=== PATIENT | male | born 1935 | race African-American/Black ===

== ENCOUNTER 2018-05-05 06:24 | Emergency (ER) | payer OTHER ==
[2018-05-05] MEDS ORDERED: FLEET ENEMA ADULT PR ONE (10:08)
--- NOTE | 2018-05-05 10:32 | ER ---
Nurse's Notes [facility] Name: Benigno Lucas Age: 82 yrs Sex: Male : 1935 Arrival Date: 05/05/2018 Time: 06:26 Bed 17 Private MD: Diagnosis: Constipation Presentation: 05/05 06:33 Presenting complaint: Patient states: "I've been having trouble with my bowel tl2 movements, they gave me a medication but I still haven't had a BM since night". Pt reports pain only when trying to have a BM. Transition of care: patient was not received from another setting of care. Onset of symptoms was May 03, 2018. Risk Assessment: Do you want to hurt yourself or someone else? Patient reports no desire to harm self or others. Initial Sepsis Screen: Does the patient meet any 2 criteria? No. Patient's initial sepsis screen is negative. Does the patient have a suspected source of infection? No. Patient's initial sepsis screen is negative. Care prior to arrival: None. 06:33 Method Of Arrival: Ambulatory tl2 06:33 Acuity: DALILA 3 tl2 Triage Assessment: 06:36 General: Appears in no apparent distress. uncomfortable, Behavior is calm, cooperative, tl2 appropriate for age. Pain: Denies pain. Neuro: Level of Consciousness is awake, alert, obeys commands, Oriented to person, place, time, situation. Cardiovascular: Denies chest pain. Respiratory: Airway is patent Respiratory effort is even, unlabored, Respiratory pattern is regular, symmetrical. GI: Reports constipation. : No signs and/or symptoms were reported regarding the genitourinary system. Derm: Skin is pink, warm \\T\\ dry. Historical: - Allergies: 06:36 No Known Allergies; tl2 - Home Meds: 06:36 HCTZ [Active]; Allopurinol Oral [Active]; Bystolic oral oral [Active]; FeroSul oral tl2 oral [Active]; Linzess oral oral [Active]; lisinopril 30 mg Oral tab 1 tab once daily [Active]; - PMHx: 06:36 Hypertension; Gout; tl2 - Immunization history:: Adult Immunizations up to date. - Social history:: Smoking status: Patient/guardian denies using tobacco. - Ebola Screening: : No symptoms or risks identified at this time. Screenin:37 Abuse screen: Denies threats or abuse. Nutritional screening: No deficits noted. tl2 Tuberculosis screening: No symptoms or risk factors identified. Fall Risk None identified. Assessment: 06:40 General: Appears in no apparent distress. comfortable, Behavior is calm, cooperative, jb4 appropriate for age. Pain: Denies pain. Neuro: Level of Consciousness is awake, alert, obeys commands, Oriented to person, place, time, situation. Cardiovascular: Patient's skin is warm and dry. Respiratory: Airway is patent Respiratory effort is even, unlabored, Respiratory pattern is regular, symmetrical. GI: Abdomen is round non-distended, Bowel sounds present X 4 quads. Abd is soft and non tender X 4 quads. : No signs and/or symptoms were reported regarding the genitourinary system. EENT: No signs and/or symptoms were reported regarding the EENT system. Derm: Skin is intact, Skin is pink, warm \\T\\ dry. Musculoskeletal: Circulation, motion, and sensation intact. 09:20 Reassessment: Patient appears in no apparent distress at this time. No changes from la1 previously documented assessment. Patient and/or family updated on plan of care and expected duration. Pain level reassessed. awaiting rad results from recent er visit at [place]. Vital Signs: 06:36 BP 160 / 88; Pulse 95; Resp 18; Temp 98.5(O); Pulse Ox 98% on R/A; Weight 83.01 kg; tl2 Height 5 ft. 9 in. (175.26 cm); Pain 0/10; 09:20 BP 132 / 73; Pulse 64; Resp 16; Pulse Ox 97% on R/A; la1 10:22 BP 148 / 72; Pulse 62; Resp 16; Pulse Ox 98% on R/A; Pain 0/10; ls4 06:36 Body Mass Index 27.02 (83.01 kg, 175.26 cm) tl2 ED Course: 06:26 Patient arrived in ED. ag3 06:31 Lillie Brady FNP-C [facility]. kb 06:31 Chico Gill MD is Attending Physician. kb 06:34 Triage completed. tl2 06:36 Arm band placed on right wrist. tl2 06:37 Patient has correct armband on for positive identification. Bed in low position. Call tl2 light in reach. Side rails up X 1. Adult w/ patient. 07:03 Nik Lopez, RN is Primary Nurse. la1 10:22 Verbal reassurance given. bedside commode and urinal . ls4 10:50 No provider procedures requiring assistance completed. ls4 10:50 Patient did not have IV access during this emergency room visit. ls4 Administered Medications: 10:10 Drug: Fleet Enema 133 ml Route: CT; ls4 Outcome: 10:31 Discharge ordered by . cb 10:49 Discharged to home ls4 10:49 Condition: stable 10:49 Discharge instructions given to patient, family, Instructed on discharge instructions, follow up and referral plans. medication usage, safety practices, Demonstrated understanding of instructions, follow-up care, medications. 11:02 Patient left the ED. ls4 Signatures: Lillie Brady, CLOTH BEAMER-C CLOTH BEAMER-Ckb Nik Lopez, RN RN la1 Mariama Morris RN RN tl2 Aamir Foy, RN RN oral4 Iliana Wyatt3 Wendy Yoder, RN RN ls4
--- NOTE | 2018-05-05 10:32 | EDPHYS ---
Physician Documentation [facility] Name: Benigno Lucas Age: 82 yrs Sex: Male : 1935 Arrival Date: 05/05/2018 Time: 06:26 Bed 17 Private MD: ED Physician Chico Gill HPI: 05/05 07:00 This 82 yrs old Male presents to ER via Ambulatory with complaints of Constipation. kb 07:00 The patient presents with constipation. Onset: The symptoms/episode began/occurred 3 kb month(s) ago, and became worse 1 week(s) ago. The symptoms do not radiate. Associated signs and symptoms: Pertinent positives: constipation, Pertinent negatives: nausea, vomiting, and diarrhea, fever. The symptoms are described as The symptoms are described as intermittent. Modifying factors: The symptoms are alleviated by nothing, the symptoms are aggravated by nothing. The patient has experienced similar episodes in the past. The patient has been recently seen by a physician: the ER physician, out of Town. Pt reports constipation for 3 months that has been intermittent, but worse over the last week. Went to ER in [place] on 05/03/18. Had labs and CT done, given mag citrate and some medication for constipation for home. Reports he still has hard stool at his rectum. . Historical: - Allergies: 06:36 No Known Allergies; tl2 - Home Meds: 06:36 HCTZ [Active]; Allopurinol Oral [Active]; Bystolic oral oral [Active]; FeroSul oral tl2 oral [Active]; Linzess oral oral [Active]; lisinopril 30 mg Oral tab 1 tab once daily [Active]; - PMHx: 06:36 Hypertension; Gout; tl2 - Immunization history:: Adult Immunizations up to date. - Social history:: Smoking status: Patient/guardian denies using tobacco. - Ebola Screening: : No symptoms or risks identified at this time. ROS: 06:58 Constitutional: Negative for fever, chills, and weight loss, Cardiovascular: Negative kb for chest pain, palpitations, and edema, Respiratory: Negative for shortness of breath, cough, wheezing, and pleuritic chest pain, Back: Negative for injury and pain, : Negative for injury, bleeding, discharge, and swelling, MS/Extremity: Negative for injury and deformity, Skin: Negative for injury, rash, and discoloration, Neuro: Negative for headache, weakness, numbness, tingling, and seizure. 06:58 Abdomen/GI: Positive for constipation, Negative for abdominal pain, nausea, vomiting, diarrhea. Exam: 06:58 Constitutional: This is a well developed, well nourished patient who is awake, alert, kb and in no acute distress. Head/Face: Normocephalic, atraumatic. Chest/axilla: Normal chest wall appearance and motion. Nontender with no deformity. No lesions are appreciated. Cardiovascular: Regular rate and rhythm with a normal S1 and S2. No gallops, murmurs, or rubs. Normal PMI, no JVD. No pulse deficits. Respiratory: Lungs have equal breath sounds bilaterally, clear to auscultation and percussion. No rales, rhonchi or wheezes noted. No increased work of breathing, no retractions or nasal flaring. Abdomen/GI: Soft, non-tender, with normal bowel sounds. No distension or tympany. No guarding or rebound. No evidence of tenderness throughout. Back: No spinal tenderness. No costovertebral tenderness. Full range of motion. Skin: Warm, dry with normal turgor. Normal color with no rashes, no lesions, and no evidence of cellulitis. MS/ Extremity: Pulses equal, no cyanosis. Neurovascular intact. Full, normal range of motion. Neuro: Awake and alert, GCS 15, oriented to person, place, time, and situation. Cranial nerves II-XII grossly intact. Motor strength 5/5 in all extremities. Sensory grossly intact. Cerebellar exam normal. Normal gait. Vital Signs: 06:36 BP 160 / 88; Pulse 95; Resp 18; Temp 98.5(O); Pulse Ox 98% on R/A; Weight 83.01 kg; tl2 Height 5 ft. 9 in. (175.26 cm); Pain 0/10; 09:20 BP 132 / 73; Pulse 64; Resp 16; Pulse Ox 97% on R/A; la1 10:22 BP 148 / 72; Pulse 62; Resp 16; Pulse Ox 98% on R/A; Pain 0/10; ls4 06:36 Body Mass Index 27.02 (83.01 kg, 175.26 cm) tl2 MDM: 06:31 Patient medically screened. kb 06:58 Data reviewed: vital signs, nurses notes. Data interpreted: Pulse oximetry: on room air kb is 98 %. Interpretation: normal. 09:59 ED course: Digital disimpaction completed, small amount of stool removed. Fleet enema kb ordered. 10:15 ED course: lab, CT and x-ray results from 05/03/[address] revealed fecal kb impaction at rectum. No bowel obstruction or other surgical or infectious process identified. . 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 05/05 07:00 Order name: Randell. Order: Get ER records from [place] from 05/03/18; Complete Time: kb 07:05 Administered Medications: 10:10 Drug: Fleet Enema 133 ml Route: [place]; ls4 Disposition: 05/05/18 10:31 Discharged to Home. Impression: Constipation. - Condition is Stable. - Discharge Instructions: Constipation, Adult, [id number]. - Medication Reconciliation Form, Thank You Letter, Antibiotic Education, Prescription Opioid Use form. - Follow up: Emergency Department; When: As needed; Reason: Worsening of condition. Follow up: Private Physician; When: 2 - 3 days; Reason: Recheck today's complaints, Continuance of care, Re-evaluation by your physician. - Notes: Continue previously prescribed lactulose. Follow up with PCP and GI Addendum: 05/07/2018 06:59 Co-signature as Attending Physician, Chico Gill MD. r n Signatures: Lillie Brady, PRECINCT I POLICE SERGEANT-C PRECINCT I POLICE SERGEANT-Ckb Chico Gill MD MD rn Knox, Taylor, RN RN tl2 Wendy Yoder, RN RN ls4 Corrections: (The following items were deleted from the chart) 05/05 11:02 10:31 05/05/2018 10:31 Discharged to Home. Impression: Constipation. Condition is ls4 Stable. Forms are Medication Reconciliation Form, Thank You Letter, Antibiotic Education, Prescription Opioid Use. Follow up: Emergency Department; When: As needed; Reason: Worsening of condition. Follow up: Private Physician; When: 2 - 3 days; Reason: Recheck today's complaints, Continuance of care, Re-evaluation by your physician. kb
== END 2018-05-05 11:02 | disposition home or self-care (01) ==
LOC: ER 06:24
DX: K59.00 Constipation, unspecified (principal); I10 Essential (primary) hypertension; M10.9 Gout, unspecified; Z79.899 Other long term (current) drug therapy
CPT/HCPCS: 99283

== ENCOUNTER 2019-01-04 20:00 | Emergency (ER) | payer OTHER ==
--- OUTSIDE RECORDS SUMMARY | 2019-01-04 20:02 | XMS REPORT ---
:1935 [facility] Address [address] [place] [address] Care Team Providers Name Role Phone MARCELLA MAE Primary Care Provider Unavailable MARCELLA MAE Unavailable Unavailable Problems This patient has no known problems. Allergies, Adverse Reactions, Alerts This patient has no known allergies or adverse reactions. Medications This patient has no known medications. Results Test Description Test Time Test Comments Text Results Atomic Results Result Comments B-Type Natriuretic Peptide 2016-12-07 10:27:00 Test Item Value Reference Range Comments B-Type Natriuretic Peptide (test [id number]=[id number]) 9.6 pg/mL 0.0-100.0 Sed Rate ESR ([place])2016-12-02 01:01:00 Test Item Value Reference Range Comments ESR (test code=HESR) 54 mm/Hr 0-9 Thyroid Stimulating Hormone (TSH)2016-12-01 23:51:00 Test Item Value Reference Range Comments TSH (test code=TSH) 0.52 mIU/mL 0.270-4.200 Comprehensive Metabolic [id number] 23:12:00 Test Item Value Reference Range Comments Sodium (test code=NA) 135 mmol/L 135-145 Potassium (test code=K) 3.6 mmol/L 3.5-5.1 Chloride (test code=CL) 93 mmol/L 98-105 Carbon Dioxide (test 25 mmol/L 22-29 code=CO2) Glucose (test code=GLU) 91 mg/dL 70-115 Blood Urea Nitrogen (test 36 mg/dL 8-23 code=BUN) Creatinine (test 2.1 mg/dL 0.7-1.2 code=CREAT) Calcium (test code=CA) 9.5 mg/dL 8.3-10.5 Prot Total (test code=TP) 8.3 g/dL 6.4-8.3 Albumin (test code=ALB) 3.8 g/dL 3.5-5.2 A/G Ratio (test 0.8 Ratio code=AGRATIO) Globulin (test code=GLOB) 4.5 2.9-3.1 Bili Total (test 0.4 mg/dL 0.1-0.9 code=TBIL) Alk Phos (test 69 U/L 40-129 code=APHOS) AST (test code=AST) 16 U/L 1-40 ALT (test code=ALT) 11 U/L 1-41 BUN/Creatinine Ratio 17.1 (test code=BCRATIO) Anion Gap (test 17 mmol/L 7-16 code=AGAP) Estimated GFR (test 32 mL/min/1.73m2 eGFR (estimated Glomerular code=GFR) Filtration Rate) is an estimated value,calculated from the patient's serum creatinine using the MDRD equation.It is NOT the patient's actual GFR. The eGFR provides a more clinicallyuseful measure of kidney disease than serum creatinine alone.This calculation takes sex and race into account, if the informationis provided. If the race is not provided, and the patient isAfrican-French, multiply by 1.212. If sex is not provided, and thepatient is female, multiply by 0.742. Results for patients <18 years ofage have not been validated by the MDRD study and should be interpretedwith caution.eGFR Result Interpretation:eGFR > or=60 is in the Normal RangeeGFR < 60 may mean kidney diseaseeGFR < 15 may mean kidney failureRanges recommended by the National Kidney Foundation,http://nkdep.nih .gov Lipid [id number] 23:12:00 Test Item Value Reference Range Comments Cholesterol (test 101 mg/dL 0-200 code=CHOL) Triglycerides (test 81 mg/dL 9-200 code=TRIG) HDL (test code=HDL) 45 mg/dL 40-60 Chol/HDL (test 2.2 Ratio 0.0-5.0 code=CHOLPHDL) LDL, Calculated (test 40 mg/dL 0-130 (NOTE)RISK OF HEART code=LDLC) DISEASEPublished by French Heart AssociationAnalyte Optimal Boderline Increased RiskCHOL <200 200-239 >240TRIG <150 150-199 >200HDL Male: >60 <40HDL Female: >60 <50LDL <100 130-159 >160LDL NEAR OPTIMAL IS 100-129 VLDL (test code=VLDL) 16 mg/dL 5-40 LDL/HDL (test code=LDLPHDL) 1 CBC with [id number] 22:17:00 Test Item Value Reference Range Comments WBC (test code=WBC) 8.3 K/cumm 4.4-10.5 RBC (test code=RBC) 3.51 M/cumm 4.10-5.70 Hemoglobin (test code=HGB) 10.6 gm/dL 13.4-17.4 Hematocrit (test code=HCT) 34.0 % 38.7-52.0 MCV (test code=MCV) 96.8 fL 80-100 MCH (test code=MCH) 30.1 pg 27.0-32.5 MCHC (test code=MCHC) 31.0 g/dL 32.0-37.5 RDW (test code=RDW) 13.2 % 11.5-14.5 Platelet Count (test code=PLTCT) 303 K/cumm 140-440 MPV (test code=MPV) 7.9 fL Diff Method (test code=DIFFM) Auto Neutrophil (test code=NEUT) 75.7 % 36-70 Lymphocyte (test code=LYMPH) 14.8 % 12-44 Monocyte (test code=MONO) 7.3 % 0-11 Eosinophil (test code=EOS) 1.8 % 0-7 Basophil (test code=BASO) 0.4 % 0-2 Neutro Abs (test code=ANEUT) 6.3 K/cumm 1.6-7.4 Lymph Abs (test code=ALYMPH) 1.2 K/cumm 0.5-4.6 [place] Abs (test code=AMONO) 0.6 K/cumm 0.0-1.2 Eos Abs (test code=AEOS) 0.15 K/cumm 0.00-0.74 Baso Abs (test code=ABASO) 0.0 K/cumm 0.00-0.21
[2019-01-04] MEDS ORDERED: NA CHLORIDE 0.9% 1,000 ML ONE (20:48)
[2019-01-04 22:43] LABS: Basophils % 0.2 % (0-1.3); Hematocrit 26.7 % (39.6-49.0); Lymphocytes % 11.9 % (15.3-44.8); MPV 8.6 fL (7.6-11.3); RBC Red Blood Cell Count 2.82 M/uL (4.33-5.43)
[2019-01-04 22:55] LABS: Protime INR 1.36
[2019-01-04 23:36] LABS: Blood Morphology Comment NOTED (NOT SEEN); Platelet Estimate ADEQ; Target Cells 3+
[2019-01-04 23:44] LABS: Albumin 2.5 g/dL (3.4-5.0); Bilirubin Direct 22.8 mg/dL (0-0.2); Potassium 3.6 mmol/L (3.5-5.1); Protein, Total 6.3 g/dL (6.4-8.2)
[2019-01-04 23:46] LABS: Bilirubin Total 25.9 mg/dL (0.2-1.0)
[2019-01-05] MEDS ORDERED: PIPER/TAZO/NS 3.375gm 3.375 GM/100 ML BAG ONE (01:02)
--- NOTE | 2019-01-05 02:38 | ER ---
Nurse's Notes [facility] Name: Benigno Lucas Age: 83 yrs Sex: Male : 1935 Arrival Date: 01/04/2019 Time: 20:05 Bed 4 Private MD: Diagnosis: Pancreatic Mass;Obstructive jaundice;Hypotension, unspecified Presentation: 01/04 20:11 Presenting complaint: Patient states: "It started yesterday and I got dizzy and I fell" aj1 Patient's son states that his bile duct is obstructed and they did a bypass of that day before yesterday. Reports abdominal pain. Denies hitting head during fall. Jaundice noted, patient's family states that he was yellow before his procedure. Transition of care: patient was not received from another setting of care. Onset of symptoms was January 02, 2019. Risk Assessment: Do you want to hurt yourself or someone else? Patient reports no desire to harm self or others. Initial Sepsis Screen: Does the patient meet any 2 criteria? HR > 90 bpm. No. Patient's initial sepsis screen is negative. Does the patient have a suspected source of infection? Yes: Acute abdominal pain. Care prior to arrival: None. 20:11 Method Of Arrival: Wheelchair aj1 20:11 Acuity: DALILA 2 aj1 20:30 Mechanism of Injury: Fall from standing position. Trauma event details: Injury occurred cc3 in the [facility]. Trauma Activation: Physician: ED Physician; Name: ; Notified At: ; Arrived At: Physician: General Surgeon; Name: ; Notified At: ; Arrived At: Physician: Radiology; Name: ; Notified At: ; Arrived At: Physician: Respiratory; Name: ; Notified At: ; Arrived At: Physician: Lab; Name: ; Notified At: ; Arrived At: 20:30 was not activated cc3 Historical: - Allergies: 20:16 No Known Allergies; aj1 - Home Meds: 21:00 allopurinol 300 mg oral tab 1 tab once daily [Active]; Bystolic 10 mg oral tab 1 tab cc3 once daily [Active]; hctz 12.5 mg daily [Active]; lisinopril 30 mg Oral tab 1 tab once daily [Active]; hydroxyzine HCl 25 mg Oral tab 1 tab 4 times per day [Active]; Vitamin D Oral 50,000 unit 1x a week [Active]; - PMHx: 20:16 Gout; Hypertension; bile duct obstruction; aj1 - Immunization history:: Flu vaccine is up to date. - Social history:: Smoking status: Patient/guardian denies using tobacco. - Immunization history: Last tetanus immunization: unknown. - Ebola Screening: : Patient denies travel to an Ebola-affected area in the 21 days before illness onset. - Family history:: not pertinent. - Hospitalizations: : No recent hospitalization is reported. Screenin:30 Abuse screen: Denies threats or abuse. Denies injuries from another. Nutritional cc3 screening: No deficits noted. Tuberculosis screening: No symptoms or risk factors identified. Fall Risk Ambulatory Aid- None/Bed Rest/Nurse Assist (0 pts). Gait- Normal/Bed Rest/Wheelchair (0 pts) Mental Status- Oriented to own ability (0 pts). Primary Survey: 20:30 NO uncontrolled hemorrhage observed. A: The patient is alert. Airway: patent, No cc3 supplemental oxygen in use on arrival. Trachea midline. Breathing/Chest: Respiratory pattern: regular, Respiratory effort: spontaneous, unlabored, Breath sounds: clear, bilaterally. Chest inspection: symmetrical rise and fall of the chest. Circulation: Heart tones present. Skin color: jaundice. Disability Alert. Exposure/Environment: All clothing and personal items were removed. Forensic evidence collection is not deemed to be indicated at this time. Items placed in patient belonging bag. There is no evidence of uncontrolled external bleeding. No obvious injuries are noted at this time. A warming method has been applied: A warm blanket has been provided to the patient. 20:45 Reassessment Airway Airway Patent Oxygen No O2 Trachea Midline Breathing/Chest cc3 Respiratory pattern Regular Respiratory effort Spontaneous Unlabored Breath sounds Clear Chest inspection Symmetrical Circulation Heart tones Present Color Other jaundice Disability Alert. Secondary Survey: 20:35 HEENT: Head No injury/deformity Face No injury/deformity Eyes: No injury or deformity cc3 noted. to bilateral eyes. Other jaundiced sclera Ears: clear bilaterally. Nose: clear to bilateral nares. Throat: No injury or deformity noted. Gastrointestinal: Abdomen is soft, flat, Bowel sounds present in all quadrants. : No signs and/or symptoms were reported regarding the genitourinary system. Musculoskeletal: Circulation, motion, and sensation intact. Range of motion: intact in all extremities. Assessment: 20:30 General: Appears in no apparent distress. comfortable, Behavior is calm, cooperative, cc3 appropriate for age. Pain: Denies pain. Neuro: Level of Consciousness is awake, alert, obeys commands, Oriented to person, place, time, situation, Appropriate for age. Cardiovascular: Denies chest pain, Patient's skin is warm and dry. Rhythm is sinus rhythm with PVC's. Respiratory: Airway is patent Respiratory effort is even, unlabored, Respiratory pattern is regular, symmetrical. GI: Abdomen is round non-distended. : No signs and/or symptoms were reported regarding the genitourinary system. EENT: Sclera/Cornea jaundice. Derm: Skin is intact, is healthy with good turgor, Skin is black, jaundiced. 20:30 Musculoskeletal: Range of motion: intact in all extremities. cc3 21:18 Reassessment: Patient appears in no apparent distress at this time. Patient and/or cc3 family updated on plan of care and expected duration. Pain level reassessed. Patient is alert, oriented x 3, equal unlabored respirations, skin warm/dry/pink. 22:15 Reassessment: Patient appears in no apparent distress at this time. Patient and/or cc3 family updated on plan of care and expected duration. Pain level reassessed. Patient is alert, oriented x 3, equal unlabored respirations, skin warm/dry/pink. charge nurse Sherlyn said she received a call from laboratory that the bloodworks needs to be recollected. JULI Thayer called laboratory to send staff to do phlebotomy for the patient. 22:30 Reassessment: Patient appears in no apparent distress at this time. Patient and/or cc3 family updated on plan of care and expected duration. Pain level reassessed. Patient is alert, oriented x 3, equal unlabored respirations, skin warm/dry/pink. forensic technician came to do blood recollection for the patient. 23:15 Reassessment: Patient appears in no apparent distress at this time. Patient and/or cc3 family updated on plan of care and expected duration. Pain level reassessed. Patient is alert, oriented x 3, equal unlabored respirations, skin warm/dry/pink. Patient taken to CT scan department by architecture technician by bed. Patient denies pain at this time. 23:41 Reassessment: Patient appears in no apparent distress at this time. Patient and/or cc3 family updated on plan of care and expected duration. Pain level reassessed. Patient is alert, oriented x 3, equal unlabored respirations, skin warm/dry/pink. Patient came back from CT scan department, awaiting result. Patient denies pain at this time. 01/05 00:40 Reassessment: Patient appears in no apparent distress at this time. Patient and/or cc3 family updated on plan of care and expected duration. Pain level reassessed. Patient is alert, oriented x 3, equal unlabored respirations, skin warm/dry/pink. Dr. Gill at bedside explaining to the patient and his family the CT scan result and his plan of care. Patient denies pain at this time. 01:18 Reassessment: Patient appears in no apparent distress at this time. Patient and/or cc3 family updated on plan of care and expected duration. Pain level reassessed. Patient is alert, oriented x 3, equal unlabored respirations, skin warm/dry/pink. Patient denies pain at this time. 02:50 Reassessment: Patient appears in no apparent distress at this time. Patient and/or cc3 family updated on plan of care and expected duration. Pain level reassessed. Patient is alert, oriented x 3, equal unlabored respirations, skin warm/dry/pink. Patient for transfer to [facility]. Report called and handed over to JULI Torres. Transfer form completed and signed by the patient's son. ED work order sorting clerk to arrange ground ambulance for transport. Patient denies pain at this time. 03:40 Reassessment: Patient appears in no apparent distress at this time. Patient and/or cc3 family updated on plan of care and expected duration. Pain level reassessed. Patient is alert, oriented x 3, equal unlabored respirations, skin warm/dry/pink. [facility] came for patient transport. Patient left ER vitally stable by EMS stretcher with his son. No valuables left in the patient's room. Patient denies pain at this time. Vital Signs: 01/04 20:16 BP 70 / 39; Pulse 77; Resp 20; Temp 98.0(O); Pulse Ox 100% on R/A; Weight 74.39 kg (R); aj1 Height 5 ft. 9 in. (175.26 cm) (R); Pain 5/10; 20:30 BP 110 / 55; Pulse 82; Resp 18 S; Pulse Ox 100% on R/A; cc3 21:00 BP 116 / 63; Pulse 79; Resp 17 S; Pulse Ox 100% on R/A; cc3 21:30 BP 110 / 67; Pulse 79; Resp 17 S; Pulse Ox 100% on R/A; cc3 22:15 BP 108 / 64; Pulse 78; Resp 17 S; Pulse Ox 100% on R/A; cc3 23:08 BP 102 / 64; Pulse 74; Resp 17 S; Pulse Ox 99% on R/A; cc3 23:42 BP 120 / 51; Pulse 81; Resp 14 S; Pulse Ox 100% on R/A; cc3 01/05 00:30 BP 118 / 59; Pulse 81; Resp 17 S; Pulse Ox 100% on R/A; cc3 01:28 BP 113 / 66; Pulse 80; Resp 17 S; Pulse Ox 100% on R/A; cc3 02:15 BP 101 / 56; Pulse 76; Resp 18 S; Pulse Ox 99% on R/A; cc3 03:30 BP 110 / 68; Pulse 82; Resp 18 S; Pulse Ox 100% on R/A; cc3 01/04 20:16 Body Mass Index 24.22 (74.39 kg, 175.26 cm) aj1 Weimar Coma Score: 01/04 20:30 Eye Response: spontaneous(4). Verbal Response: oriented(5). Motor Response: obeys cc3 commands(6). Total: 15. Trauma Score (Adult): 20:30 Eye Response: spontaneous(1); Verbal Response: oriented(1); Motor Response: obeys cc3 commands(2); Systolic BP: > 89 mm Hg(4); Respiratory Rate: 10 to 29 per min(4); [place] Score: 15; Trauma Score: 12 ED Course: 20:05 Patient arrived in ED. mr 20:15 Triage completed. aj1 20:16 Arm band placed on Patient placed in an exam room. aj1 20:17 Chico Gill MD is Attending Physician. rn 20:30 Patient has correct armband on for positive identification. Placed in gown. Bed in low cc3 position. Call light in reach. Side rails up X2. potline monitor on. Pulse ox on. NIBP on. 20:30 Patient maintains SpO2 saturation greater than 95% on room air. Thermoregulation: warm cc3 blanket given to patient. 20:31 Radiology exam delayed due to lab results not completed at this time. (BUN/Creatinine). vm2 20:35 Rukhsana Madera is Primary Nurse. cc3 20:36 Initial lab(s) drawn, by me, sent to lab. First set of blood cultures drawn Second set ak1 of blood cultures drawn by me. 20:45 Inserted saline lock: 20 gauge in right antecubital area, using aseptic technique. ak1 Blood collected. 21:13 Radiology exam delayed due to lab results not completed at this time. (BUN/Creatinine). vm2 21:56 Radiology exam delayed due to lab results not completed at this time. (BUN/Creatinine). vm2 22:22 Radiology exam delayed due to lab results not completed at this time. (BUN/Creatinine). vm2 23:45 Notified ED physician of a critical lab result(s). total bili of 25.9. 01/05 00:22 CT Abd/Pelvis - Without Contrast In Process Unspecified. EDMS 01:02 CT completed. Patient tolerated procedure well. Patient moved to CT via stretcher. Patient moved back from CT. 03:40 No provider procedures requiring assistance completed. Patient transferred, IV remains cc3 in place. Administered Medications: 01/04 20:35 Drug: NS 0.9% 1000 ml Route: IV; Rate: 1000 ml; Site: right antecubital; cc3 21:40 Follow up: Response: No adverse reaction; IV Status: Completed infusion; IV Intake: cc3 1000ml 01/05 00:50 Drug: Zosyn 3.375 grams Route: IVPB; Infused Over: 60 mins; Site: right antecubital; cc3 02:00 Follow up: Response: No adverse reaction; IV Status: Completed infusion; IV Intake: cc3 100ml 03:05 Drug: NS 0.9% 500 ml Route: IV; Rate: bolus; Site: right antecubital; cc3 03:10 Follow up: Response: No adverse reaction; IV Status: Infusion continued upon transfer cc3 Intake: 01/04 21:40 IV: 1000ml; Total: 1000ml. cc3 01/05 02:00 IV: 100ml; Total: 1100ml. cc3 03:40 IV: 1600ml; Total: 2700ml. cc3 03:40 urinated 2x cc3 Outcome: 02:35 ER care complete, transfer ordered by . rn 03:40 Transferred by ground EMS to [facility], Transfer form completed. cc3 03:40 Condition: stable 03:40 Instructed on the need for transfer, Demonstrated understanding of instructions. 03:40 Patient's length of stay in the Emergency Department was greater than 2 hours. patient cc3 transferred to [facility].Patient's length of stay extended due to 03:56 Patient left the ED. cc3 Signatures: Dispatcher [employer] EDMS Trish Pro RN RN [email or web address] Karen Mcbride, Sherlyn Lind RN Chico Harris MD MD rn Krenek, Amber, RN RN ak1 McGuire, Victoria vm2 Cordel, Charlene cc3 Corrections: (The following items were deleted from the chart) 01/04 20:16 20:11 Presenting complaint: Patient states: "It started yesterday and I got dizzy and I aj1 fell" Patient's son states that his bile duct is obstructed and they did a bypass of that day before yesterday. Reports abdominal pain. Denies hitting head during fall. aj1 21:48 20:30 General: Appears in no apparent distress. comfortable, Behavior is calm, cc3 cooperative, appropriate for age, cc3 21:48 20:30 Pain: Denies pain. cc3 cc3 :53 20:30 Derm: Skin is intact, is healthy with good turgor, Skin is black, jaundiced, cc3 cc3 :53 20:30 Musculoskeletal: Circulation, motion, and sensation intact. Range of motion: cc3 limited in bilateral lower limbs cc3
--- NOTE | 2019-01-05 02:38 | EDPHYS ---
Physician Documentation [facility] Name: Benigno Lucas Age: 83 yrs Sex: Male : 1935 Arrival Date: 01/04/2019 Time: 20:05 Bed 4 Private MD: ED Physician Chico Gill HPI: 01/04 20:28 This 83 yrs old Black Male presents to ER via Wheelchair with complaints of Fall rn Injury, Dizziness, jaundice. 20:32 The patient presents with abdominal pain. Onset: The symptoms/episode began/occurred 3 rn day(s) ago. The symptoms do not radiate. Associated signs and symptoms: Pertinent positives: anorexia, Pertinent negatives: blood in stools, diarrhea, fever, shortness of breath. Modifying factors: The symptoms are alleviated by nothing, the symptoms are aggravated by touching the area. Severity of pain: At its worst the pain was mild in the emergency department the pain has improved. The patient has not experienced similar symptoms in the past. The patient has been recently seen by a physician:. Reports seen by pcp Monday, sent to GI center for bile duct blockage, had stent or "bypass", family not really sure, reports since then seems weaker, decreased appetite, increased jaundice, fell today without injury due to weakness, no head injury. No known liver problems prior to this. . Historical: - Allergies: 20:16 No Known Allergies; aj1 - Home Meds: 21:00 allopurinol 300 mg oral tab 1 tab once daily [Active]; Bystolic 10 mg oral tab 1 tab cc3 once daily [Active]; hctz 12.5 mg daily [Active]; lisinopril 30 mg Oral tab 1 tab once daily [Active]; hydroxyzine HCl 25 mg Oral tab 1 tab 4 times per day [Active]; Vitamin D Oral 50,000 unit 1x a week [Active]; - PMHx: 20:16 Gout; Hypertension; bile duct obstruction; aj1 - Immunization history:: Flu vaccine is up to date. - Social history:: Smoking status: Patient/guardian denies using tobacco. - Immunization history: Last tetanus immunization: unknown. - Ebola Screening: : Patient denies travel to an Ebola-affected area in the 21 days before illness onset. - Family history:: not pertinent. - Hospitalizations: : No recent hospitalization is reported. ROS: 20:32 Constitutional: Negative for fever, chills, and weight loss, Eyes: Negative for injury, rn pain, redness, and discharge, Neck: Negative for injury, pain, and swelling, Cardiovascular: Negative for chest pain, palpitations, and edema, Respiratory: Negative for shortness of breath, cough, wheezing, and pleuritic chest pain, Abdomen/GI: Negative for nausea, vomiting, diarrhea, and constipation, MS/Extremity: Negative for injury and deformity, Skin: Negative for injury, rash, and discoloration, Neuro: Negative for headache, numbness, tingling, and seizure. Exam: 20:32 Constitutional: Thin male with jaundice Head/Face: Normocephalic, atraumatic. Eyes: rn + scleral icterus ENT: dry MM, + jaundice under tongue Cardiovascular: Regular rate and rhythm. No pulse deficits. Respiratory: No increased work of breathing, no retractions or nasal flaring. Abdomen/GI: soft, + mild tenderness left abdomen, no masses MS/ Extremity: Pulses equal, no cyanosis. Neurovascular intact. Full, normal range of motion. Equal circumference. Neuro: Awake and alert, GCS 15, oriented to person, place, time, and situation. Cranial nerves II-XII grossly intact. Motor strength 5/5 in all extremities. Sensory grossly intact. Cerebellar exam normal. Vital Signs: 20:16 BP 70 / 39; Pulse 77; Resp 20; Temp 98.0(O); Pulse Ox 100% on R/A; Weight 74.39 kg (R); aj1 Height 5 ft. 9 in. (175.26 cm) (R); Pain 5/10; 20:30 BP 110 / 55; Pulse 82; Resp 18 S; Pulse Ox 100% on R/A; cc3 21:00 BP 116 / 63; Pulse 79; Resp 17 S; Pulse Ox 100% on R/A; cc3 21:30 BP 110 / 67; Pulse 79; Resp 17 S; Pulse Ox 100% on R/A; cc3 22:15 BP 108 / 64; Pulse 78; Resp 17 S; Pulse Ox 100% on R/A; cc3 23:08 BP 102 / 64; Pulse 74; Resp 17 S; Pulse Ox 99% on R/A; cc3 23:42 BP 120 / 51; Pulse 81; Resp 14 S; Pulse Ox 100% on R/A; cc3 01/05 00:30 BP 118 / 59; Pulse 81; Resp 17 S; Pulse Ox 100% on R/A; cc3 01:28 BP 113 / 66; Pulse 80; Resp 17 S; Pulse Ox 100% on R/A; cc3 02:15 BP 101 / 56; Pulse 76; Resp 18 S; Pulse Ox 99% on R/A; cc3 03:30 BP 110 / 68; Pulse 82; Resp 18 S; Pulse Ox 100% on R/A; cc3 01/04 20:16 Body Mass Index 24.22 (74.39 kg, 175.26 cm) aj1 Anaid Coma Score: 01/04 20:30 Eye Response: spontaneous(4). Verbal Response: oriented(5). Motor Response: obeys cc3 commands(6). Total: 15. Trauma Score (Adult): 20:30 Eye Response: spontaneous(1); Verbal Response: oriented(1); Motor Response: obeys cc3 commands(2); Systolic BP: > 89 mm Hg(4); Respiratory Rate: 10 to 29 per min(4); Anaid Score: 15; Trauma Score: 12 MDM: 20:17 Patient medically screened. rn 01/05 01:10 Differential diagnosis: bowel obstruction, cholecystitis, Cholelithiasis, non-specific rn abd pain, biliary obstruction, pancreatic mass. Data reviewed: vital signs, nurses notes, lab test result(s), radiologic studies, CT scan, MRI. Counseling: I had a detailed discussion with the patient and/or guardian regarding: the historical points, exam findings, and any diagnostic results supporting the discharge/admit diagnosis, lab results, radiology results, the need to transfer to another facility, for higher level of care, [facility] does not immediately have the required specialist. ED course: Patient without acute findings on CT, but no change in bilirubin, direct bili actually increasing, improved BP but presented hypotensive. COntacted Lotus Reddy who recommends transfer to [facility] given outpt MRI showed possible pancreatic mass as source of obstruction and recommends endoscopic u/s. Family and patient report unaware of mass and need to f/u, were under impression just needed to f/u with Dr. Reddy on . . 01/04 20:27 Order name: CBC with Diff; Complete Time: 23:56 rn 01/04 20:27 Order name: Basic Metabolic Panel; Complete Time: 23:56 rn 01/04 20:27 Order name: Blood Culture Adult (2) rn 01/04 20:27 Order name: Procalcitonin; Complete Time: 23:56 rn 01/04 20:27 Order name: Lactate; Complete Time: 23:15 rn 01/04 20:27 Order name: Creatinine for Radiology; Complete Time: 23:15 rn 01/04 20:27 Order name: Hepatic Function; Complete Time: 23:56 rn 01/04 20:27 Order name: Lipase; Complete Time: 23:56 rn 01/04 20:27 Order name: PT-INR; Complete Time: 23:15 rn 01/04 22:47 Order name: Manual Differential; Complete Time: 23:56 EDMS 01/04 23:14 Order name: CT Abd/Pelvis - Without Contrast rn 01/05 01:59 Order name: Urine Dipstick--Ancillary (enter results) oe 01/04 20:27 Order name: IV Start; Complete Time: 20:48 rn 01/04 20:27 Order name: Labs collected and sent; Complete Time: 22:36 rn 01/04 20:28 Order name: EKG; Complete Time: 20:29 rn 01/04 20:28 Order name: EKG - Nurse/Tech; Complete Time: 22:14 rn Administered Medications: 01/04 20:35 Drug: NS 0.9% 1000 ml Route: IV; Rate: 1000 ml; Site: right antecubital; cc3 21:40 Follow up: Response: No adverse reaction; IV Status: Completed infusion; IV Intake: cc3 1000ml 01/05 00:50 Drug: Zosyn 3.375 grams Route: IVPB; Infused Over: 60 mins; Site: right antecubital; cc3 02:00 Follow up: Response: No adverse reaction; IV Status: Completed infusion; IV Intake: cc3 100ml 03:05 Drug: NS 0.9% 500 ml Route: IV; Rate: bolus; Site: right antecubital; cc3 03:10 Follow up: Response: No adverse reaction; IV Status: Infusion continued upon transfer cc3 Disposition: 01/05/19 02:35 Transfer ordered to [facility]. Diagnosis are Pancreatic Mass, Obstructive jaundice, Hypotension, unspecified. - Reason for transfer: Higher level of care. - Accepting physician is Dr. Rose. - Condition is Stable. - Problem is new. - Symptoms are unchanged. Signatures: Dispatcher [employer] EDTrish Li, JULI RN aj1 Chico Gill MD MD rn Cordel, Charlene cc3 Corrections: (The following items were deleted from the chart) 01/04 23:28 20:29 Abdomen Pelvis W Con+CT.RAD.BRZ ordered. [facility] 01/05 03:56 02:35 01/05/2019 02:35 Transfer ordered to [facility]. Diagnosis is cc3 Pancreatic Mass; Obstructive jaundice; Hypotension, unspecified. Reason for transfer: Higher level of care. Accepting physician is Dr. Rose. Condition is Stable. Problem is new. Symptoms are unchanged. rn
[2019-01-05 03:07] LABS: Urine Blood 1+ (NEG); Urine Glucose NEGATIVE (NEG); Urine Protein TRACE (NEG); Urine Specific Gravity 1.015 (1.005-1.030)
[2019-01-05] MEDS ORDERED: NA CHLORIDE 0.9% 500 ML ONE (03:25)
--- NOTE | 2019-01-05 11:35 | RAD REPORT ---
EXAM DESCRIPTION: CT - Abdomen Pelvis Wo Contrast - 01/05/2019 4:56 am CLINICAL HISTORY: Recent biliary stent, worsening jaundice;Abd pain COMPARISON: None. TECHNIQUE: CT ABDOMEN PELVIS WITHOUT IV CONTRAST on 01/04/2019 11:14 PM CDT This exam was performed according to our departmental dose-optimization program, which includes autom ated exposure control, adjustment of the mA and/or kV according to patient size and/or use of iterati ve reconstruction technique. FINDINGS: Lower lungs are clear. Abdomen: The liver is normal in appearance. There is a common bile duct stent. Gallbladder is normall y distended. The pancreas and spleen are normal in appearance. Adrenal glands are normal. Kidneys are mildly atrophic. There are large bilateral lower pole renal cyst measuring up to 7.5 cm. Abdominal aorta is normal in course and caliber without aneurysm. There is no free air. There is no r etroperitoneal adenopathy. Pelvis: There is no bowel obstruction. Urinary bladder is unremarkable. There is no free fluid. Appen tonie is normal. Skeleton: There are no acute osseous findings. No suspicious bony lesions. There are extensive degene rative changes of the lumbar spine. IMPRESSION: No acute inflammatory process. No renal or ureteral calculi. Electronically signed by: Cain Kumar MD 01/05/2019 12:13 AM CDT Due to temporary technical issues with the PACS/Fluency reporting system, reports are being signed by the in house radiologist as a courtesy to ensure prompt reporting. The interpreting radiologist is f ully responsible for the content of the report.
--- NOTE | 2019-01-06 06:31 | EKG ---
Test Date: 2019-01-04 Test Time: 21:10:45 Electrical Mechanical Technician: NINFA MEASUREMENT RESULTS: Intervals: Rate: 80 MS: 142 QRSD: 112 QT: 410 QTc: 472 [place]: P: 42 MS: 142 QRS: -12 T: 42 INTERPRETIVE STATEMENTS: Sinus rhythm with occasional premature ventricular complexes Otherwise normal ECG No previous ECG available for comparison Electronically Signed On 01-06-19 06:30:54 CDT by Boris Sutherland
== END 2019-01-05 03:56 | disposition short-term general hospital (02) ==
LOC: ER 20:00
DX: K86.9 Disease of pancreas, unspecified (principal); K83.1 Obstruction of bile duct; I95.9 Hypotension, unspecified; I10 Essential (primary) hypertension; W19.XXXA Unspecified fall, initial encounter; Y93.9 Activity, unspecified; Y92.9 Unspecified place or not applicable
CPT/HCPCS: 96365; 96361; 93005; 87040 ×2; 85025; 80048; 36415; 85610; 80076; 83605; 81003; 83690; 84145; 74176; 99285; J2543; J7030

== ENCOUNTER 2019-03-06 20:15 | Inpatient (IN) | payer OTHER ==
[2019-03-06 21:12] LABS: Absolute Lymphocytes (CBC) 0.7 K/uL (0.7-4.9); Basophils % 0.5 % (0-1.3); Lymphocytes % 6.2 % (15.3-44.8); MPV 8.3 fL (7.6-11.3); RBC Red Blood Cell Count 2.71 M/uL (4.33-5.43)
[2019-03-06 21:15] LABS: Protime INR 1.27
--- NOTE | 2019-03-06 21:30 | ER ---
Nurse's Notes [facility] Name: Benigno Lucas Age: 83 yrs Sex: Male : 1935 Arrival Date: 03/06/2019 Time: 20:17 Bed 3 Private MD: Diagnosis: Dizziness and giddiness;Atrial fibrillation and flutter;Weakness;Hypokalemia;Hypo-osmolality and hyponatremia;Urinary tract infection, site not specified;Unspecified kidney failure Presentation: 03/06 20:29 Presenting complaint: Patient states: dizziness, lethargic, weakness today. Transition ak1 of care: patient was not received from another setting of care. Onset of symptoms was March 06, 2019. Risk Assessment: Do you want to hurt yourself or someone else? Patient reports no desire to harm self or others. Initial Sepsis Screen: Does the patient meet any 2 criteria? Systolic BP < 90 mmHg. HR > 90 bpm. Does the patient have a suspected source of infection? Yes:. Care prior to arrival: None. 20:29 Method Of Arrival: Wheelchair ak1 20:29 Acuity: DALILA 2 ak1 Triage Assessment: 20:29 General: Appears in no apparent distress. Behavior is calm, cooperative. ak1 Historical: - Allergies: 23:54 No Known Allergies; tl1 - Home Meds: 23:54 hydrochlorothiazide 12.5 mg Oral cap 1 cap once daily [Active]; allopurinol 300 mg Oral tl1 tab 1 tab once daily [Active]; lisinopril 30 mg Oral tab 1 tab once daily [Active]; ergocalciferol (vitamin D2) 400 unit oral tab [Active]; Flomax 0.4 mg Oral cp24 [Active]; hydroxyzine HCl 25 mg Oral tab 1 tab 4 times per day [Active]; - PMHx: 23:54 bile duct obstruction; Gout; Hypertension; tl1 - Immunization history:: Adult Immunizations unknown. - Social history:: Smoking status: unknown. - Ebola Screening: : No symptoms or risks identified at this time. - Family history:: not pertinent. Screenin:30 Abuse screen: Denies threats or abuse. Denies injuries from another. Nutritional tl1 screening: No deficits noted. Tuberculosis screening: No symptoms or risk factors identified. Fall Risk IV access (20 points). Gait- Weak (10 pts.). Assessment: 20:45 General: Appears slender, Behavior is cooperative, appropriate for age. Pain: Denies tl1 pain. Neuro: Level of Consciousness is awake, alert, obeys commands, Oriented to person, place, time, situation, Weakness Gait is unsteady, Speech is normal, Facial symmetry appears normal. Cardiovascular: Denies chest pain. Cardiovascular: Capillary refill < 3 seconds Rhythm is atrial fibrillation. Respiratory: Airway is patent Trachea midline Respiratory effort is even, unlabored, Respiratory pattern is regular, symmetrical, Breath sounds are clear bilaterally. GI: Abdomen is flat, Bowel sounds present X 4 quads. Abd is soft and non tender X 4 quads. : Pressley in place Urine is brianna urine. EENT: Eyes . Sclera/Cornea yellow. Derm: No deficits noted. Musculoskeletal: Reports weakness in generalized. Vital Signs: 20:28 BP 73 / 38 LA; Pulse 101; Resp 16; Temp 98.2(O); Pulse Ox 100% on R/A; Weight 65.77 kg ak1 (R); Height 5 ft. 9 in. (175.26 cm) (R); Pain 0/10; 20:28 BP 73 / 48 RA; Pulse 101; ak1 21:44 BP 107 / 70; Pulse 96; Resp 22; Pulse Ox 100% ; Pain 0/10; bb 23:29 BP 108 / 83; Pulse 112; Resp 19; Pulse Ox 100% on R/A; Pain 0/10; tl1 23:37 BP 99 / 43; Pulse 89; Resp 19; Pulse Ox 100% ; Pain 0/10; tl1 03/07 00:16 BP 113 / 71; Pulse 102; Resp 18; Temp 98.4; Pulse Ox 100% on R/A; Pain 0/10; tl1 00:52 BP 109 / 78; Pulse 82; Resp 17; Temp 98.5(O); Pulse Ox 100% on R/A; Pain 0/10; tl1 03/06 20:28 Body Mass Index 21.41 (65.77 kg, 175.26 cm) ak1 ED Course: 03/06 20:17 Patient arrived in ED. ds1 20:29 Triage completed. ak1 20:29 Arm band placed on Patient placed in an exam room, on a stretcher, Patient notified of ak1 wait time. 20:45 No provider procedures requiring assistance completed. Inserted saline lock: 20 gauge tl1 in left antecubital area, using aseptic technique. Blood collected. 20:48 Sol Correa, JULI is Primary Nurse. tl1 21:03 Justin Serna MD is Attending Physician. zachariah 21:18 Chest Single View XRAY In Process Unspecified. EDMS 21:29 Sanjuanita Donald MD is Hospitalizing Provider. zachariah 21:55 Notified ED physician of a critical lab result(s). total bili of 12.9 and lactate of fc 2.8. 21:55 Patient has correct armband on for positive identification. Placed in gown. Bed in low tl1 position. Side rails up X2. Adult w/ patient. 22:16 CT Head Brain wo Cont In Process Unspecified. EDMS 22:46 CT completed. Patient moved to CT via stretcher. Patient moved back from CT. hi 22:53 CT Abd/Pelvis - Without Contrast In Process Unspecified. EDMS 23:58 PRESSLEY BAG ADDED TO EXISTING PRESSLEY PATIENT CAME IN WITH. Patient admitted, IV remains in tl1 place. Administered Medications: 21:43 Drug: NS 0.9% 1000 ml Route: IV; Rate: 125 ml/hr; Site: left antecubital; bb 03/07 00:54 Follow up: IV Status: Infusion continued upon admission; IV Intake: 400ml tl1 03/06 21:43 Drug: Lopressor 25 mg Route: PO; bb 23:37 Follow up: BP 99 / 43; Pulse 89 bpm; Resp 19 bpm; Pulse Ox 100% ; Pain 0/10 Adult tl1 21:47 Drug: Pepcid 20 mg Route: IVP; Infused Over: 2 mins; Site: left antecubital; bb 03/07 00:53 Follow up: Response: No adverse reaction; No change in condition 1 03/06 21:51 Not Given (dr order): NS 0.9% (30 ml/kg) 30 ml/kg IV at bolus once; Sepsis Protocol bb 22:17 Drug: NS 0.9% 1000 ml Route: IV; Rate: 1 bolus; Site: left antecubital; tl1 03/07 00:12 Follow up: IV Status: Completed infusion 1 03/06 23:12 Drug: Zosyn 3.375 grams Route: IVPB; Infused Over: 60 mins; Site: left antecubital; tl1 03/07 00:13 Follow up: IV Status: Completed infusion; IV Intake: 100ml tl1 Point of Care Testing: Blood Glucose: 03/06 20:56 Blood Glucose: 122 mg/dL; tl1 Ranges: Intake: 03/07 00:13 IV: 100ml; Total: 100ml. tl1 00:54 IV: 400ml; Total: 500ml. tl1 Outcome: 03/06 21:30 Decision to Hospitalize by Provider. zachariah 03/07 00:09 Admitted to Tele accompanied by nurse, via stretcher, with chart, Report called to trevor1 Eliseo BUSTOS Condition: stable Instructed on the need for admit. 01:32 Patient left the ED. bb Signatures: Dispatcher [employer] EDJustin Santizo MD MD cha Chretien, Felicia, RN RN Aimee Perez ds1 Adriana Flaherty RN RN bb Sol Correa RN RN tl1 Brianna Harrison RN RN ak1 Timmy Almazan
--- NOTE | 2019-03-06 21:30 | EDPHYS ---
Physician Documentation [facility] Name: Benigno Lucas Age: 83 yrs Sex: Male : 1935 Arrival Date: 03/06/2019 Time: 20:17 Bed 3 Private MD: DIAPK Physician Justin Serna HPI: 03/06 21:26 This 83 yrs old Black Male presents to ER via Wheelchair with complaints of Dizziness, zachariah Low Blood Pressure. 21:26 The patient presents with dizziness. Onset: The symptoms/episode began/occurred 1 zachariah day(s) ago. Context: occurred at home. Modifying factors: The symptoms are alleviated by nothing, the symptoms are aggravated by nothing. Associated signs and symptoms: The patient has no apparent associated signs or symptoms. Patient's baseline: Neuro: alert and fully oriented. The patient has not experienced similar symptoms in the past. Historical: - Allergies: 23:54 No Known Allergies; tl1 - Home Meds: 23:54 hydrochlorothiazide 12.5 mg Oral cap 1 cap once daily [Active]; allopurinol 300 mg Oral tl1 tab 1 tab once daily [Active]; lisinopril 30 mg Oral tab 1 tab once daily [Active]; ergocalciferol (vitamin D2) 400 unit oral tab [Active]; Flomax 0.4 mg Oral cp24 [Active]; hydroxyzine HCl 25 mg Oral tab 1 tab 4 times per day [Active]; - PMHx: 23:54 bile duct obstruction; Gout; Hypertension; tl1 - Immunization history:: Adult Immunizations unknown. - Social history:: Smoking status: unknown. - Ebola Screening: : No symptoms or risks identified at this time. - Family history:: not pertinent. ROS: 21:26 Constitutional: Negative for fever, chills, and weight loss, Eyes: Negative for injury, zachariah pain, redness, and discharge, ENT: Negative for injury, pain, and discharge, Neck: Negative for injury, pain, and swelling, Respiratory: Negative for shortness of breath, cough, wheezing, and pleuritic chest pain, Abdomen/GI: Negative for abdominal pain, nausea, vomiting, diarrhea, and constipation, Back: Negative for injury and pain, : Negative for injury, bleeding, discharge, and swelling, MS/Extremity: Negative for injury and deformity, Skin: Negative for injury, rash, and discoloration, Psych: Negative for depression, anxiety, suicide ideation, homicidal ideation, and hallucinations, Allergy/Immunology: Negative for hives, rash, and allergies, Endocrine: Negative for neck swelling, polydipsia, polyuria, polyphagia, and marked weight changes, Hematologic/Lymphatic: Negative for swollen nodes, abnormal bleeding, and unusual bruising. 21:26 Cardiovascular: Positive for palpitations. 21:26 Neuro: Positive for dizziness, near syncope, weakness. Exam: 21:26 Constitutional: This is a well developed, well nourished patient who is awake, alert, zachariah and in no acute distress. Head/Face: Normocephalic, atraumatic. Eyes: Pupils equal round and reactive to light, extra-ocular motions intact. Lids and lashes normal. Conjunctiva and sclera are non-icteric and not injected. Cornea within normal limits. Periorbital areas with no swelling, redness, or edema. ENT: Nares patent. No nasal discharge, no septal abnormalities noted. Tympanic membranes are normal and external auditory canals are clear. Oropharynx with no redness, swelling, or masses, exudates, or evidence of obstruction, uvula midline. Mucous membranes moist. Neck: Trachea midline, no thyromegaly or masses palpated, and no cervical lymphadenopathy. Supple, full range of motion without nuchal rigidity, or vertebral point tenderness. No Meningismus. Chest/axilla: Normal chest wall appearance and motion. Nontender with no deformity. No lesions are appreciated. Respiratory: Lungs have equal breath sounds bilaterally, clear to auscultation and percussion. No rales, rhonchi or wheezes noted. No increased work of breathing, no retractions or nasal flaring. Abdomen/GI: Soft, non-tender, with normal bowel sounds. No distension or tympany. No guarding or rebound. No evidence of tenderness throughout. Back: No spinal tenderness. No costovertebral tenderness. Full range of motion. Male : Normal genitalia with no discharge or lesions. Skin: Warm, dry with normal turgor. Normal color with no rashes, no lesions, and no evidence of cellulitis. MS/ Extremity: Pulses equal, no cyanosis. Neurovascular intact. Full, normal range of motion. Psych: Awake, alert, with orientation to person, place and time. Behavior, mood, and affect are within normal limits. 21:26 Cardiovascular: Rate: tachycardic, Rhythm: regular, Pulses: Pulses are 4+ in bilateral radial, brachial, femoral, popliteal, posterior tibial and and dorsalis pedis arteries.. Heart sounds: normal, Edema: is not appreciated, JVD: is not appreciated. Vital Signs: 20:28 BP 73 / 38 LA; Pulse 101; Resp 16; Temp 98.2(O); Pulse Ox 100% on R/A; Weight 65.77 kg ak1 (R); Height 5 ft. 9 in. (175.26 cm) (R); Pain 0/10; 20:28 BP 73 / 48 RA; Pulse 101; ak1 21:44 BP 107 / 70; Pulse 96; Resp 22; Pulse Ox 100% ; Pain 0/10; bb 23:29 BP 108 / 83; Pulse 112; Resp 19; Pulse Ox 100% on R/A; Pain 0/10; tl1 23:37 BP 99 / 43; Pulse 89; Resp 19; Pulse Ox 100% ; Pain 0/10; tl1 03/07 00:16 BP 113 / 71; Pulse 102; Resp 18; Temp 98.4; Pulse Ox 100% on R/A; Pain 0/10; tl1 00:52 BP 109 / 78; Pulse 82; Resp 17; Temp 98.5(O); Pulse Ox 100% on R/A; Pain 0/10; tl1 03/06 20:28 Body Mass Index 21.41 (65.77 kg, 175.26 cm) [facility] MDM: 03/06 21:04 Patient medically screened. [facility] 21:28 Data reviewed: vital signs, nurses notes, EMS record, lab test result(s), EKG, [facility] radiologic studies, CT scan, plain films. 03/06 20:49 Order name: Basic Metabolic Panel; Complete Time: 22:38 [facility] 03/06 20:49 Order name: Blood Culture Adult (2) [facility] 03/06 20:49 Order name: CBC with Diff [facility] 03/06 20:49 Order name: Ckmb; Complete Time: 22:38 [facility] 03/06 20:49 Order name: CPK; Complete Time: 22:38 [facility] 03/06 20:49 Order name: Lactate; Complete Time: 22:06 [facility] 03/06 20:49 Order name: LFT's; Complete Time: 22:38 [facility] 03/06 20:49 Order name: Lipase; Complete Time: 22:38 [facility] 03/06 20:49 Order name: Procalcitonin; Complete Time: 22:38 [facility] 03/06 20:49 Order name: Protime (+inr); Complete Time: 22:06 [facility] 03/06 20:49 Order name: Ptt, Activated; Complete Time: 22:06 [facility] 03/06 20:49 Order name: Troponin (emerg Dept Use Only); Complete Time: 22:38 [facility] 03/06 20:49 Order name: Urine Microscopic Only; Complete Time: 22:38 [facility] 03/06 21:26 Order name: Urine Culture [facility] 03/06 21:44 Order name: Manual Differential [facility] 03/06 21:47 Order name: NT PRO-BNP; Complete Time: 22:38 EDID 03/06 21:47 Order name: Magnesium; Complete Time: 22:38 EDID 03/06 21:47 Order name: Thyroid Stimulating Hormone; Complete Time: 22:38 [facility] 03/06 22:05 Order name: Urine Dipstick--Ancillary (enter results); Complete Time: 22:38 em 03/06 23:34 Order name: CBC with Automated Diff [facility] 03/06 23:34 Order name: CBC with Automated Diff [facility] 03/06 23:34 Order name: Comprehensive Metabolic Panel [facility] 03/06 23:34 Order name: Comprehensive Metabolic Panel [facility] 03/06 23:34 Order name: Protime (+INR) [facility] 03/06 23:34 Order name: Protime (+INR) [facility] 03/06 23:34 Order name: PTT, Activated Partial Thromb EDID 03/06 23:34 Order name: PTT, Activated Partial Thromb [facility] 03/06 20:49 Order name: Chest Single View XRAY [facility] 03/06 20:49 Order name: Accucheck; Complete Time: 21:16 [facility] 03/06 20:49 Order name: Cardiac monitoring; Complete Time: 20:50 [facility] 03/06 20:49 Order name: EKG - Nurse/Tech; Complete Time: 20:50 [facility] 03/06 20:49 Order name: IV Saline Lock - Large Bore; Complete Time: 20:51 [facility] 03/06 20:49 Order name: Labs collected and sent; Complete Time: 20:51 [facility] 03/06 20:49 Order name: O2 Per Protocol; Complete Time: 20:51 [facility] 03/06 20:49 Order name: O2 Sat Monitoring; Complete Time: 20:51 [facility] 03/06 20:49 Order name: Urine Dipstick-Ancillary (obtain specimen); Complete Time: 22:04 [facility] 03/06 21:26 Order name: EKG; Complete Time: 21:27 [facility] 03/06 21:26 Order name: IV Saline Lock; Complete Time: 21:27 [facility] 03/06 21:26 Order name: CT Head Brain wo Cont [facility] 03/06 21:30 Order name: EKG; Complete Time: 21:31 [facility] 03/06 21:30 Order name: EKG - Nurse/Tech; Complete Time: 21:43 [facility] 03/06 22:09 Order name: CT Abd/Pelvis - Without Contrast [facility] 03/06 22:39 Order name: Guerrero Leg Bag; Complete Time: 23:58 [facility] 03/06 23:34 Order name: CONS Pharmacy Consult [facility] 03/06 23:34 Order name: NPO [facility] 03/07 01:31 Order name: Lactate Sepsis 2 HR Follow-up EDID Administered Medications: 21:43 Drug: NS 0.9% 1000 ml Route: IV; Rate: 125 ml/hr; Site: left antecubital; 03/07 00:54 Follow up: IV Status: Infusion continued upon admission; IV Intake: 400ml [facility] 03/06 21:43 Drug: Lopressor 25 mg Route: PO; bb 23:37 Follow up: BP 99 / 43; Pulse 89 bpm; Resp 19 bpm; Pulse Ox 100% ; Pain 0/10 Adult [facility] 21:47 Drug: Pepcid 20 mg Route: IVP; Infused Over: 2 mins; Site: left antecubital; 03/07 00:53 Follow up: Response: No adverse reaction; No change in condition [facility] 03/06 21:51 Not Given (dr order): NS 0.9% (30 ml/kg) 30 ml/kg IV at bolus once; Sepsis Protocol bb 22:17 Drug: NS 0.9% 1000 ml Route: IV; Rate: 1 bolus; Site: left antecubital; [facility] 03/07 00:12 Follow up: IV Status: Completed infusion [facility] 03/06 23:12 Drug: Zosyn 3.375 grams Route: IVPB; Infused Over: 60 mins; Site: left antecubital; tl1 03/07 00:13 Follow up: IV Status: Completed infusion; IV Intake: 100ml tl1 Point of Care Testing: Blood Glucose: 03/06 20:56 Blood Glucose: 122 mg/dL; tl1 Ranges: Critical Glucose Levels:Adult <50 mg/dl or >400 mg/dl <40 mg/dl or >180 mg/dl Disposition: 03/06/19 21:30 Hospitalization ordered by Sanjuanita Donald for Inpatient Admission. Preliminary diagnosis are Dizziness and giddiness, Atrial fibrillation and flutter, Weakness, Hypokalemia, Hypo-osmolality and hyponatremia, Urinary tract infection, site not specified, Unspecified kidney failure. - Bed requested for Telemetry/MedSurg (Inpatient). - Status is Inpatient Admission. bb - Condition is Stable. - Problem is new. - Symptoms have improved. UTI on Admission? No Signatures: Dispatcher [employer] EDID Justin Serna MD MD cha Chretien, Felicia, RN RN Adriana Flaherty RN RN bb Sol Correa, RN RN tl1 Flaca Harrison RN RN ak1 Corrections: (The following items were deleted from the chart) 21:47 21:27 MAGNESIUM+C.LAB.BRZ ordered. [facility] 21:47 21:27 PROBNP+C.LAB.BRZ ordered. [facility] 21:47 21:27 THYROID STIMULAT HORMONE+C.LAB.BRZ ordered. [facility] 22:40 21:30 Hospitalization Ordered by Sanjuanita Donald MD for Inpatient Admission. Preliminary zachariah diagnosis is Dizziness and giddiness; Atrial fibrillation and flutter; Weakness. Bed requested for Telemetry/MedSurg (Inpatient). Status is Inpatient Admission. Condition is Stable. Problem is new. Symptoms have improved. UTI on Admission? No. zachariah 23:41 22:40 03/06/2019 21:30 Hospitalization Ordered by Sanjuanita Donald MD for Inpatient fc Admission. Preliminary diagnosis is Dizziness and giddiness; Atrial fibrillation and flutter; Weakness; Hypokalemia; Hypo-osmolality and hyponatremia; Urinary tract infection, site not specified; Unspecified kidney failure. Bed requested for Telemetry/MedSurg (Inpatient). Status is Inpatient Admission. Condition is Stable. Problem is new. Symptoms have improved. UTI on Admission? No. zachariah 03/07 01:32 03/06 23:41 03/06/2019 21:30 Hospitalization Ordered by Sanjuanita Donald MD for Inpatient bb Admission. Preliminary diagnosis is Dizziness and giddiness; Atrial fibrillation and flutter; Weakness; Hypokalemia; Hypo-osmolality and hyponatremia; Urinary tract infection, site not specified; Unspecified kidney failure. Bed requested for Telemetry/MedSurg (Inpatient). Status is Inpatient Admission. Condition is Stable. Problem is new. Symptoms have improved. UTI on Admission? No.
[2019-03-06] MEDS ORDERED: METOPROLOL TAR 25 MG TAB ONE (21:31)
[2019-03-06] MEDS ORDERED: NA CHLORIDE 0.9% 1,000 ML ONE ×2 (21:31→22:18)
[2019-03-06 21:44] LABS: ALT/SGPT 85 U/L (12-78); AST/SGOT 138 U/L (15-37); Albumin 1.7 g/dL (3.4-5.0); Alkaline Phosphatase 447 U/L (45-117); BUN Blood Urea Nitrogen 28 mg/dL (7-18); Bicarbonate 20 mmol/L (21-32); Bilirubin Direct 10.9 mg/dL (0-0.2); CKMB Creatine Kinase MB < 1.0 ng/mL (0.3-3.6); Creatine Phosphokinase 253 U/L (39-308); Glucose Level 104 mg/dL (74-106); Lipase 371 U/L (73-393); Potassium 3.3 mmol/L (3.5-5.1); Protein, Total 6.9 g/dL (6.4-8.2); Sodium Level 126 mmol/L (136-145); Troponin (Emerg Dept Use Only) < 0.02 ng/mL (0.0-0.045)
[2019-03-06] MEDS ORDERED: FAMOTIDINE 20 MG/2 ML VIAL IV ONE (21:49)
[2019-03-06 21:56] LABS: Bilirubin Total 12.9 mg/dL (0.2-1.0)
[2019-03-06 22:11] LABS: Urine Blood 2+ (NEG); Urine Glucose NEGATIVE (NEG); Urine Protein 2+ (NEG); Urine pH 5.5 (5.0-7.0)
[2019-03-06 22:20] LABS: Magnesium 1.9 mg/dL (1.8-2.4); NT PRO-BNP 1931 pg/mL (<450); Thyroid Stimulating Hormone 0.857 uIU/mL (0.360-3.740)
[2019-03-06 22:29] LABS: Urine Bacteria LOADED /HPF (NONE SEEN)
[2019-03-06 22:30] LABS: Urine Culture Reflex Order NOT NEEDED
[2019-03-06] MEDS ORDERED: PIPER/TAZO/NS 3.375gm 3.375 GM/100 ML BAG ONE (23:03)
[2019-03-06] MEDS ORDERED: ACETAMINOPHEN 500 MG TAB PO PRN (23:28)
[2019-03-06] MEDS ORDERED: MORPHINE 2 MG/ML SYR IV PRN (23:28)
[2019-03-06] MEDS ORDERED: ONDANSETRON 4 MG/2 ML VIAL IV PRN (23:28)
[2019-03-06 23:39] LABS: Blood Morphology Comment NOT SEEN (NOT SEEN); Platelet Estimate ADEQ
[2019-03-07 01:56] VITALS: BMI 20.5
[2019-03-07 02:25] VITALS: O2SAT 100
[2019-03-07] MEDS: NA CHLORIDE 0.9% 1,000 ML IV SCH ×2 (03:33→13:22)
[2019-03-07 04:20] LABS: Basophils % 0.3 % (0-1.3); Hematocrit 29.1 % (39.6-49.0); Lymphocytes % 7.1 % (15.3-44.8); MPV 8.2 fL (7.6-11.3); RBC Red Blood Cell Count 2.82 M/uL (4.33-5.43)
[2019-03-07 04:22] LABS: Protime INR 1.22
[2019-03-07 04:38] LABS: Albumin 1.7 g/dL (3.4-5.0); Potassium 3.7 mmol/L (3.5-5.1); Protein, Total 6.7 g/dL (6.4-8.2)
[2019-03-07 04:54] LABS: Bilirubin Total 12.5 mg/dL (0.2-1.0)
--- NOTE | 2019-03-07 07:22 | RAD REPORT ---
EXAM DESCRIPTION: RAD - Chest Single View - 03/06/2019 9:16 pm CLINICAL HISTORY: Cough, shortness of breath, weakness COMPARISON: None. TECHNIQUE: AP portable chest image was obtained 2112 hours . FINDINGS: Lungs are clear. Heart and vasculature are normal. No measurable pleural effusion and no p neumothorax. No acute bony abnormality seen. No acute aortic findings suspected. IMPRESSION: No acute cardiopulmonary process.
[2019-03-07] MEDS ORDERED: INFLUENZA VACCINE (for 3y+) 0.5 ML DOSE IMVAC ONE (08:00)
--- NOTE | 2019-03-07 10:43 | P.HP ---
Certification for Inpatient Patient admitted to: Inpatient With expected LOS: >2 Midnights Patient will require the following post-hospital care: None Practitioner: I am a practitioner with admitting privileges, knowledge of patient current condition, hospital course, and medical plan of care. Services: Services provided to patient in accordance with Admission requirements found in Title 42 Section 412.3 of the Code of Federal Regulations Patient History Date of Service: 03/06/19 Reason for admission: DYSURIA/GENERALIZED WEAKNESS History of Present Illness: PATIENT IS AN 83-YEAR-OLD GENTLEMAN WHO WAS RECENTLY DIAGNOSED WITH PANCREATIC ADENOCARCINOMA. PATIENT WAS SEEN AT [facility] AND HAD A ERCP WITH STENT PLACEMENT BECAUSE OF OBSTRUCTIVE JAUNDICE. PATIENT'S BILIRUBIN HAS DECREASED SINCE THAT TIME. PATIENT OVERALL HAD BEEN DOING BETTER UNTIL RECENTLY WHEN HIS DIET DECREASED AND HE WAS HAVING SOME DYSURIA. PATIENT HAD A PRESSLEY CATHETER PLACED AT AN OUTSIDE HOSPITAL BECAUSE HE WAS HAVING DIFFICULTY VOIDING. PATIENT WAS LEFT WITH A CATHETER SINCE THAT TIME. PATIENT'S BILIRUBIN IS SIGNIFICANTLY ELEVATED STILL. PATIENT'S LONG-TERM PROGNOSIS IS POOR. HE STATES THAT HE WAS NOT OFFERED ANY TREATMENT BECAUSE OF HIS OTHER MEDICAL ISSUES. AT THIS TIME HE APPEARS TO BE MORE APPROPRIATE FOR PALLIATIVE CARE. WILL ADMIT HIM TO THE HOSPITAL FOR FURTHER TREATMENT OF HIS HYPERBILIRUBINEMIA AND HIS GENERALIZED WEAKNESS. Allergies No Known Allergies Allergy (Verified 03/07/19 00:49) Home Medications: Allopurinol 300 mg PO DAILY 03/07/19 Ergocalciferol (Vitamin D2) [Vitamin D2] 1.25 mg PO EVERY 7TH DAY 03/07/19 Lisinopril 1 tab PO DAILY 03/07/19 Tamsulosin [Flomax*] 1 cap PO DAILY 03/07/19 hydrOXYzine HCl [Atarax] 25 mg PO Q6HR 03/07/19 hydroCHLOROthiazide [Hydrochlorothiazide*] 12.5 mg PO DAILY 03/07/19 - Past Medical/Surgical History Has patient received pneumonia vaccine in the past: Yes -: pancreatic cancer -: TESS -: hypertension Past Surgical History: Patient denies surgical history - Family History Mother History Unknown: Yes - Social History Smoking Status: Never smoker Alcohol use: No CD- Drugs: No Caffeine use: Yes Place of Residence: Home Review of Systems 10-point ROS is otherwise unremarkable Physical Examination - Vital Signs Temperature: 99.4 F Blood Pressure: 90/52 Pulse: 84 Respirations: 16 Pulse Ox (%): 100 - Physical Exam General: Alert, In no apparent distress, Oriented x3 HEENT: Atraumatic, PERRLA, Mucous membr. moist/pink, EOMI, Sclerae nonicteric Neck: Supple, 2+ carotid pulse no bruit, No LAD, Without JVD or thyroid abnormality Respiratory: Clear to auscultation bilaterally, Normal air movement Cardiovascular: Regular rate/rhythm, Normal S1 S2, No murmurs Gastrointestinal: Normal bowel sounds, Soft and benign, Non-distended, No tenderness Musculoskeletal: No clubbing, No swelling, No tenderness Integumentary: No rashes Neurological: Normal gait, Normal speech, Normal strength at 5/5 x4 extr, Normal tone, Sensation intact, Cranial nerves 3-12 intact, Normal affect Lymphatics: No axilla or inguinal lymphadenopathy - Studies Laboratory Data (last 24 hrs) 03/06/19 21:26: Magnesium Cancelled 03/06/19 20:49: PT 14.8 H, INR 1.27, APTT 33.2 03/06/19 20:49: WBC 10.8, Hgb 10.1 L, Hct 27.0 L, Plt Count 376 03/06/19 20:49: Sodium 126 L, Potassium 3.3 L, BUN 28 H, Creatinine 1.83 H, Glucose 104, Magnesium 1.9, Total Bilirubin 12.9 H*, AST 138 H, ALT 85 H, Alkaline Phosphatase 447 H, Lipase 371 Assessment & Plan - Plan ASSESSMENT: 1. PANCREATIC ADENOCARCINOMA 2. OBSTRUCTIVE JAUNDICE-HISTORY OF PANCREATIC STAND 3. ACUTE KIDNEY INJURY 4. DYSURIA 5. GENERALIZED WEAKNESS 6. CACHEXIA 7. URINARY TRACT INFECTION PLAN: 1. IV HYDRATION 2. SOCIAL WORK CONSULTATION 3. PATIENT PROBABLY WOULD BENEFIT FROM PALLIATIVE CARE HE DOES NOT MEET CRITERIA FOR ANY FURTHER TREATMENT AT THIS TIME 4.IV ANTIBIOTIC THERAPY 5. GI AND DVT PROPHYLAXIS - Advance Directives Does patient have a Living Will: No Does patient have a Durable POA for Healthcare: No - Code Status/Comfort Care Code Status Assessed: Yes Code Status: Full Code Critical Care: No Time Spent Managing PTS Care (In Minutes): 45
[2019-03-07] MEDS ORDERED: CEFTRIAXONE/SWI 1gm 1 GM/10 ML SYR IV SCH (11:00)
--- NOTE | 2019-03-07 11:39 | P.PN ---
Subjective Date of Service: 03/07/19 Chief Complaint: DYSURIA/GENERALIZED WEAKNESS Subjective: Improving Patient seen and examined at bedside. family at bedside. Chart reviewed and case discussed with nursing staff. Patient reports feeling a little better. Denies any dizziness at this time. He states he would like to eat something as he is feeling better. Review of Systems 10-point ROS is otherwise unremarkable Physical Examination - Vital Signs Temperature: 99.4 F Blood Pressure: 90/52 Pulse: 84 Respirations: 16 Pulse Ox (%): 100 - Physical Exam General: Alert, Oriented x3, Cachectic, Mild distress HEENT: Atraumatic, PERRLA, EOMI Neck: Supple, JVD not distended Respiratory: Clear to auscultation bilaterally, Normal air movement Cardiovascular: Regular rate/rhythm, Normal S1 S2 Gastrointestinal: Normal bowel sounds, No tenderness Musculoskeletal: No tenderness Integumentary: No rashes Neurological: Normal speech, Normal tone, Normal affect Lymphatics: No axilla or inguinal lymphadenopathy - Studies Laboratory Data (last 24 hrs) 03/06/19 21:26: Magnesium Cancelled 03/06/19 20:49: PT 14.8 H, INR 1.27, APTT 33.2 03/06/19 20:49: WBC 10.8, Hgb 10.1 L, Hct 27.0 L, Plt Count 376 03/06/19 20:49: Sodium 126 L, Potassium 3.3 L, BUN 28 H, Creatinine 1.83 H, Glucose 104, Magnesium 1.9, Total Bilirubin 12.9 H*, AST 138 H, ALT 85 H, Alkaline Phosphatase 447 H, Lipase 371 Assessment And Plan - Current Problems (Diagnosis) (1) Pancreatic adenocarcinoma Current Visit: Yes Status: Acute (2) Obstructive jaundice Current Visit: Yes Status: Acute (3) Acute kidney injury Current Visit: Yes Status: Acute (4) Generalized weakness Current Visit: Yes Status: Acute (5) Cachexia Current Visit: Yes Status: Acute - Plan -will continue IV hydration -patient probably would benefit from palliative care as it does not meet criteria for any further treatment at this time. Will discuss with family further -continue antibiotics at this time, pending cultures DVT prophylaxis: Lovenox GI prophylaxis: Protonix Diet: GI soft, advance as tolerated Disposition: Pending symptomatic improvement. Anticipate discharge home in the next 24-48 hr.
--- NOTE | 2019-03-07 11:52 | RAD REPORT ---
EXAM DESCRIPTION: CT - Abdomen Pelvis Wo Contrast - 03/07/2019 3:21 am CLINICAL HISTORY: 83 years Male ABD PAIN COMPARISON: January 04, 2019. TECHNIQUE: Images were obtained in axial, sagittal, and coronal planes. No intravenous contrast was administered. This exam was performed according to our departmental dose-optimization program which includes use of Automated Exposure Control, adjustment of the mA and/or kV according to patient size and/or use of i terative reconstruction technique. FINDINGS: Biliary stent again noted. Proximal tip is seen in the region of the hepatic duct confluen ce. Distal tip is seen in the region of the ampulla of Vater. Moderate intrahepatic biliary dilatatio n unchanged when correlated with the prior study. Distended gallbladder unchanged. Unremarkable splee n, and adrenal glands bilaterally. Mildly dilated pancreatic duct. Fullness in region of head of panc reas. No obstructing renal calcifications bilaterally. No hydronephrosis bilaterally. Bilateral renal cysts . Guerrero catheter balloon within the bladder. Unremarkable bladder. Appendix within normal limits. No bowel obstruction, perforation, or inflammation. Calcification abdominal aorta with no dilatation seen. Airspace attenuation right lower lobe likely atelectatic change. No acute osseous abnormality. Marked multilevel osteoarthritic change lumbar spine. Multilevel vacuum disc phenomenon. IMPRESSION: No acute intra-abdominal abnormality. Moderate intrahepatic biliary dilatation with gall bladder distention and biliary stent again noted. Appearance unchanged when correlated with the prior study. Electronically signed by: Miranda Greene MD 03/06/2019 11:30 PM CDT Due to temporary technical issues with the PACS/Fluency reporting system, reports are being signed by the in house radiologist as a courtesy to ensure prompt reporting. The interpreting radiologist is f ully responsible for the content of the report.
--- NOTE | 2019-03-07 11:55 | RAD REPORT ---
EXAM DESCRIPTION: CT - Head Brain Wo Cont - 03/07/2019 3:21 am CLINICAL HISTORY: 83 years Male DIZZINESS COMPARISON: None TECHNIQUE: Images were obtained in axial, sagittal, and coronal planes. This exam was performed according to our departmental dose-optimization program which includes use of Automated Exposure Control, adjustment of the mA and/or kV according to patient size and/or use of i terative reconstruction technique. FINDINGS: Ventricular system appears age appropriate in size. Moderate prominence of the cortical gavin lci. No abnormal areas of increased or decreased attenuation are seen involving the brain parenchyma. No e xtra-axial fluid collections noted. No evidence for skull fracture. Symmetric aeration mastoid air cells bilaterally. Unremarkable parana sandee sinuses. IMPRESSION: No acute intracranial abnormality. No evidence for hemorrhage, mass lesion, or large acu te infarction. Age-appropriate changes. Electronically signed by: Miranda Greene MD 03/06/2019 10:40 PM CDT Due to temporary technical issues with the PACS/Fluency reporting system, reports are being signed by the in house radiologist as a courtesy to ensure prompt reporting. The interpreting radiologist is f ully responsible for the content of the report.
[2019-03-07] MEDS ORDERED: hydrOXYzine HCl 25 MG TAB PO SCH (12:00)
[2019-03-07 16:22] VITALS: BP 110/65; TEMP 98.6
--- NOTE | 2019-03-07 16:40 | P.DS ---
Admission Date: 03/06/19 Discharge Date: 03/07/19 Disposition: AMA-LEFT AGAINST MEDICAL ADVIC Reason for Admission: DYSURIA/GENERALIZED WEAKNESS - Problems (1) Pancreatic adenocarcinoma Current Visit: Yes Status: Acute (2) Obstructive jaundice Current Visit: Yes Status: Acute (3) Acute kidney injury Current Visit: Yes Status: Acute (4) Generalized weakness Current Visit: Yes Status: Acute (5) Cachexia Current Visit: Yes Status: Acute Brief History of Present Illness: See HPI Hospital Course: Patient was admitted for generalized weakness. Started on IVF, INV antibiotics while labs were pending. He was able to tolerate a diet and was feeling better so patient wanted to go home. His family also wanted him to go home. His blood cultures did come back positive for gram positive cocci in pairs/clusters , final cultures were pending. pateint was recommended to stay for IV antibiotic treatment and final cultures to return but patient refused. He understood the risks of leaving AMA. Vital Signs/Physical Exam: Temp Pulse Resp BP Pulse Ox 98.6 F 82 16 110/65 100 03/07/19 16:00 03/07/19 16:00 03/07/19 16:00 03/07/19 16:00 03/07/19 16:00 Laboratory Data at Discharge: WBC 13.5 K/uL (4.3-10.9) H D 03/07/19 03:44 Hgb 10.3 g/dL (13.6-17.9) L 03/07/19 03:44 Hct 29.1 % (39.6-49.0) L 03/07/19 03:44 Plt Count 412 K/uL (152-406) H 03/07/19 03:44 PT 14.3 SECONDS (9.5-12.5) H 03/07/19 03:44 INR 1.22 03/07/19 03:44 APTT 30.9 SECONDS (24.3-36.9) 03/07/19 03:44 Sodium 129 mmol/L (136-145) L 03/07/19 03:44 Potassium 3.7 mmol/L (3.5-5.1) 03/07/19 03:44 BUN 28 mg/dL (7-18) H 03/07/19 03:44 Creatinine 1.64 mg/dL (0.55-1.3) H 03/07/19 03:44 Glucose 95 mg/dL (74-106) 03/07/19 03:44 Magnesium Cancelled 03/06/19 21:26 Total Bilirubin 12.5 mg/dL (0.2-1.0) H* 03/07/19 03:44 AST 129 U/L (15-37) H 03/07/19 03:44 ALT 79 U/L (12-78) H 03/07/19 03:44 Alkaline Phosphatase 441 U/L (45-117) H 03/07/19 03:44 Lipase 371 U/L (73-393) 03/06/19 20:49 Home Medications: Allopurinol 300 mg PO DAILY 03/07/19 Ergocalciferol (Vitamin D2) [Vitamin D2] 1.25 mg PO EVERY 7TH DAY 03/07/19 Lisinopril 1 tab PO DAILY 03/07/19 Tamsulosin [Flomax*] 1 cap PO DAILY 03/07/19 hydrOXYzine HCl [Atarax] 25 mg PO Q6HR 03/07/19 hydroCHLOROthiazide [Hydrochlorothiazide*] 12.5 mg PO DAILY 03/07/19 Patient Discharge Instructions: Please follow up with your primary care physician in 2-3 days. Return to the ER for worsening symptoms. Diet: As tolerated Activity: Ad justo Time spent managing pt's care (in minutes): 45
--- NOTE | 2019-03-08 08:43 | EKG ---
Test Date: 2019-03-06 Test Time: 20:54:05 [employer]iser: DARWIN MEASUREMENT RESULTS: Intervals: Rate: 108 NC: 130 QRSD: 98 QT: 358 QTc: 479 [place]: P: 61 NC: 130 QRS: -16 T: 76 INTERPRETIVE STATEMENTS: Sinus tachycardia with occasional premature ventricular complexes Otherwise normal ECG Compared to ECG 01/04/2019 21:10:45 Sinus rhythm no longer present Electronically Signed On 03-08-19 08:41:33 CDT by Boris Sutherland
[2019-03-08] MEDS ORDERED: TAMSULOSIN 0.4 MG SR CAP PO SCH (09:00)
[2019-03-14] MEDS ORDERED: ERGOCALCIFEROL 1.25 MG PO SCH (09:00)
== END 2019-03-07 17:22 | disposition left against medical advice (07) | DRG 689 ==
LOC: ER 20:15 → ERHOLD 23:29 → 4TH 03-07 00:13
PROVIDERS: ADMIT Hospitalist; ATTEND Hospitalist
DX: N39.0 Urinary tract infection, site not specified (principal); K83.1 Obstruction of bile duct; C25.9 Malignant neoplasm of pancreas, unspecified; N17.9 Acute kidney failure, unspecified; R64 Cachexia; Z68.20 Body mass index [BMI] 20.0-20.9, adult
CPT/HCPCS: 36415; 70450; 71045; 74176; 80048; 80053; 80076; 81003; 81015; 82550; 82553; 82962; 83605; 83690; 83735; 83880; 84145; 84443; 84484; 85025; 85610; 85730; 87040; 87077; 87086; 87088; 87186; 87205; 93005; 96361; 96365; 96375; 99285; J0696; J2543; J7030

== ENCOUNTER 2019-12-05 18:01 | Observation (INO) | payer OTHER ==
--- OUTSIDE RECORDS SUMMARY | 2019-12-05 18:14 | XMS REPORT | Clinical Summary ---
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 mg/dL [facility] Specimen Blood Narrative Performed At Supervisor Customer Services ID - PIAYA L [facility] Performing Organization Address City/[facility] Centercode Phone Number [facility] [address] [place] [address] CENTER Basic Metabolic Panel (11/15/2019 5:05 AM CDT)Only the most recent of9 results within the time period is included. Sodium 128 (L) 136 - 145 meq/L [facility] Potassium 4.3Comment: Specimen slightly 3.5 - 5.1 meq/L [facility] hemolyzed [facility] CENTER Chloride 103 98 - 107 meq/L [facility] CO2 21 (L) 22 - 29 meq/L [facility] BUN 13 7 - 21 mg/dL [facility] Creatinine 0.77Comment: Specimen 0.57 - 1.25 mg/dL [facility] slightly hemolyzed [facility] Glucose 98 70 - 105 mg/dL [facility] Calcium 8.1 (L) 8.4 - 10.2 mg/dL [facility] EGFR 116Comment: ESTIMATED GFR IS mL/min/1.73 sq m [facility] NOT ACCURATE CREATININE [facility] CLEARANCE IN PREDICTING GLOMERULAR FILTRATION RATE. ESTIMATED GFR IS NOT APPLICABLE FOR DIALYSIS PATIENTS. Specimen Blood Narrative Performed At Supervisor Customer Services ID - PIAYA L [facility] Performing Organization Address City/State/Zipcode Phone Number [facility] [address] [place] [address] [place] REPORT OF PROCEDURE - ENDOSCOPY URL (11/14/2019 5:02 PM CDT) Narrative Performed At This result has an attachment that is no t available. [place] ERCP (11/14/2019 4:00 PM CDT)Only the most recent of3 resultswithin the time period is included. Specimen Narrative Performed At FINAL REPORT GE RIS TECHNIQUE: Fluoroscopic images from endo scopic retrograde cholangiopancreatography. INDICATION: Biliary obstruction. COMPARISON: 03/10/2019. IMPRESSION: Fluoroscopic images from endoscopic retr ograde cholangiopancreatography, not obtained b y the undersigned. Please refer to endoscopy note for more details of the procedure and findings. Fluoroscopy time: 64 seconds Number of images: 5 Signed: Dorian Crenshaw MD Report Verified Date/Time:11/14/2019 16:29:17 Reading Location: [facility] C013 Consult R eading Room Procedure Note Interface, External Ris In - 11/14/2019 4:31 PM CDT FINAL REPORT TECHNIQUE: Fluoroscopic images from endo scopic retrograde cholangiopancreatography. INDICATION: Biliary obstruction. COMPARISON: 03/10/2019. IMPRESSION: Fluoroscopic images from endoscopic retr ograde cholangiopancreatography, not obtained b y the undersigned. Please refer to endoscopy note for more details of the procedure and findings. Fluoroscopy time: 64 seconds Number of images: 5 Signed: Dorian Crenshaw MD Report Verified Date/Time: 11/14/2019 1 6:29:17 Reading Location: [facility] C013 Consult R eading Room Performing Organization Address City/State/Zipcode Phone Number RIS TSH/Free T4 If Indicated (11/14/2019 3:42 AM CDT) TSH 1.579 0.350 - 4.940 uIU/mL [facility] Specimen Blood Narrative Performed At Supervisor Customer Services ID - BS [facility] Performing Organization Address City/[facility]/Zipcode Phone Number [place] [phone] [place] [address] CENTER Hepatic function panel (11/14/2019 3:42 AM CDT)Only the most recent of5 results within the time period is included. Protein, Total 7.5 6.0 - 8.3 gm/dL [facility] Albumin 2.4 (L) 3.5 - 5.0 g/dL [facility] Total Bilirubin 1.3 (H) 0.2 - 1.2 mg/dL [facility] Bilirubin, Direct 1.1 (H) 0.1 - 0.5 mg/dL [facility] Alkaline Phosphatase 329 (H) 40 - 150 U/L [facility] AST 45 (H) 5 - 34 U/L [facility] ALT 19 6 - 55 U/L [facility] Specimen Blood Narrative Performed At Supervisor Customer Services ID - BS [facility] Performing Organization Address City/State/Zipcode Phone Number [facility] [address] [place] [address] CENTER Comprehensive metabolic panel (11/14/2019 3:42 AM CDT)Only the most recent of9 resultswithin the time period is included. Protein, Total 7.5 6.0 - 8.3 gm/dL [facility] ER Albumin 2.4 (L) 3.5 - 5.0 g/dL [facility] Alkaline Phosphatase 329 (H) 40 - 150 U/L [facility] Total Bilirubin 1.3 (H) 0.2 - 1.2 mg/dL [facility] Sodium 124 (L) 136 - 145 meq/L [facility] Potassium 3.8 3.5 - 5.1 meq/L [facility] Chloride 99 98 - 107 meq/L [facility] CO2 22 22 - 29 meq/L [facility] BUN 18 7 - 21 mg/dL [facility] Creatinine 0.82 0.57 - 1.25 mg/dL [facility] ER Glucose 99 70 - 105 mg/dL [facility] ER Calcium 8.2 (L) 8.4 - 10.2 mg/dL [facility] ER AST 45 (H) 5 - 34 U/L [facility] ER ALT 19 6 - 55 U/L [facility] ER EGFR 108Comment: ESTIMATED mL/min/1.[address] [facility] GFR IS NOT ACCURATE [facility] CREATININE CLEARANCE IN PREDICTING GLOMERULAR FILTRATION RATE. ESTIMATED GFR IS NOT APPLICABLE FOR DIALYSIS PATIENTS. Specimen Blood Narrative Performed At Supervisor Customer Services ID - BS [facility] Performing Organization Address City/State/Zipcode Phone Number [facility] [address] [place] [address] CENTER NM hepatobiliary (HIDA) scan (11/13/2019 2:42 PM CDT) Specimen Narrative Performed At FINAL REPORT Hoppit PROCEDURE: HEPATOBILIARY SCAN CPT CODE: 19584 INDICATION: GENERAL INJURY, cholecystitis PROTOCOL: 8.4 mCi of Tc-99m mebrofenin was injected intravenously. Images of the upper abdom en were obtained for approximately 120 minutes after tracer i njection. FINDINGS:Initial tra cer uptake into the liver is heterogeneous. Subsequent tracer clearan ce from the liver proceeds normally. There is good visualization of the extrahepatic biliary duct, and the tracer appears appropriate ly in the small bowel. The gallbladder is not seen. IMPRESSION:Abnormal hepatobi liary scan. There is nonvisualization of the gallbladder norm al gallbladder ejection fraction cannot be calculated. Acute cho lecystitis cannot be excluded. Signed: Song Marin MD Report Verified Date/Time:11/13/2019 15:54:11 Reading Location: [address] Reading Room Procedure Note Interface, External Ris In - 11/13/2019 3:56 PM CDT FINAL REPORT PROCEDURE: HEPATOBILIARY SCAN CPT CODE: [id number] INDICATION: GENERAL INJURY, cholec ystitis PROTOCOL: 8.4 mCi of Tc-99m mebrof enin was injected intravenously. Images of the upper abdom en were obtained for approximately 120 minutes after tracer i njection. FINDINGS: Initial tracer uptake into the liver is heterogeneous. Subsequent tracer clearan ce from the liver proceeds normally. There is good visualization of the extrahepatic biliary duct, and the tracer appears appropriate ly in the small bowel. The gallbladder is not seen. IMPRESSION: Abnormal hepatobiliary scan. There is nonvisualization of the gallbladder norm al gallbladder ejection fraction cannot be calculated. Acute cho lecystitis cannot be excluded. Signed: Song Marin MD Report Verified Date/Time: 11/13/2019 1 5:54:11 Reading Location: [address] [address] Reading Room Performing Organization Address City/State/Zipcode Phone Number [facility] Urinalysis w/Microscopic (11/13/2019 4:02 AM CDT)Only the most recent of2 resultswithin the time period is included. Color, UA Light Yellow [facility] Clarity, UA Clear [facility] Specific [place], UA 1.012 1.001 - 1.035 [facility] pH, UA 7.5 5.0 - 8.[address] [facility] Protein, UA Negative Negative [facility] Glucose, UA Negative Negative [facility] Ketones, UA Negative Negative [facility] Bilirubin, UA Negative Negative [facility] Blood, UA Negative Negative [facility] Nitrite, UA Negative Negative [facility] Leukocytes, UA Large (A) Negative [facility] Urobilinogen, UA 0.2 0.2 - 1.0 mg/dL [facility] RBC, UA 1 /HPF [facility] WBC, UA 6 /HPF [facility] Bacteria, UA Occasional [facility] Squam Epithel, UA 1 /HPF [facility] Amorphous Crystals Few [facility] Specimen Source [facility] Specimen Urine Narrative Performed At Supervisor Customer Services ID - [auto] [facility] Supervisor Customer Services ID - tech Performing Organization Address City/State/Zipcode Phone Number [facility] [address] [place] [address] abdomen/pelvis with IV contrast (11/13/2019 1:41 AM CDT) Specimen Narrative Performed At FINAL REPORT yetu RIS CT, ABDOMEN \\T\\ PELVIS, WITH IV CONTRAST INDICATION: Abdominal pain, acute, nonlo calized COMPARISON: None TECHNIQUE: Post contrast abdomen and pelvis CT. Coronal and sagittal reformatted images obtained. DOSE REDUCTION: Dose modulation, iterati ve reconstruction, and/or weight-based adjustment of the mA/kV was utilized to reduce the radiation dose to as low as reasonably a chievable. FINDINGS: Lower thorax: Minimal bilateral lower lo be atelectasis. No pleural effusion. Liver: Multiple hypodense hepatic lesion s, somewhat ill-defined, concerning for metastatic disease. Intra uterine hepatic biliary ductal dilatation, particularly within t he left hepatic lobe. Trace pneumobilia. Gallbladder and biliary tree: Gallbladde r is nondistended. The bladder wall thickening. There is promin ence of the common bile duct proximally which tapers the level of the pancreatic head. Pancreas: Enlargement of the pancreatic head with Ill-defined pancreatic head hypodense lesion measuri ng approximately 2.1 x 1.7 cm concerning for adenocarcinoma. The pancr eatic tail is atrophic. Prominence of the pancreatic duct in the pancreatic tail. Spleen: No acute findings Adrenal Glands: No acute findings. Kidneys and ureters: Multiple hypodense renal lesions which are too small to characterize and remain indeter minate. Hypodensity of the bilateral upper pole renal cortex may be related to streak artifact and renal cysts however correlate with u rinalysis as pyelonephritis can have this appearance. Bilateral larg e exophytic renal cysts the largest of which the right lower pole me asuring 7.5 cm. No hydronephrosis or hydroureter. No nephro lithiasis. Bladder and reproductive organs: The majo dder is distended and thick-walled. Prostate gland is enlarged measuring up to 5.0 cm in the transverse dimension. Stomach and Duodenum: No significant fin dings. Small and large intestine: Normal calibe rs. Appendix: Normal. Major vascular structures: There is narr owing versus occlusion of the main portal vein near the confluence by the pancreatic head mass. Abdominal aorta is normal in caliber wit h atherosclerotic calcifications of the iliac arteries. Peritoneum and retroperitoneum: Trace fr ee fluid in the pelvis. Mesenteric soft tissue stranding may be related to volume status. Enlarged peripancreatic lymph node measu ring 1.4 cm in the short axis. No pneumoperitoneum. Skeleton: Multilevel degenerative change s visualized thoracolumbar spine. Few scattered lucent lesions with in the pelvis, particularly the 1.2 cm lesion in the right acetabulu m are indeterminate however metastatic disease can have this appeara nce recommend further evaluation with MRI. Additional findings: None. IMPRESSION: Ill-defined 2.1 cm hypodense pancreatic head mass is most consistent with pancreatic adenocarcinoma with hepa tic metastatic disease. There is associated narrowing versus short seg ment occlusion of the main portal vein and common bile duct. Thickening of the gallbladder wall with pericholecystic fluid may be reactive however if there is concern for acute cholecystitis recommend further evaluation with HIDA s can. Few scattered lucent lesions within the pelvis, are indeterminate however metastatic disease can have this appearance recommend further evaluation with MRI. Hypodensity of the bilateral upper poles renal cortex with thickening of the bladder wall. Findings could be a rtifactual related to chronic bladder outlet obstruction however corre late with urinalysis to exclude pyelonephritis and cystitis. Small hypodense renal lesions are not co mpletely characterized on this examination. Recommend further eval uation with dedicated renal protocol cross-sectional imaging on a no nemergent basis. Signed: Juan Chaudhary MD Report Verified Date/Time:11/13/2019 02:19:44 Procedure Note Interface, External Ris In - 11/13/2019 2:21 AM CDT FINAL REPORT CT, ABDOMEN \\T\\ PELVIS, WITH IV CONTRAST INDICATION: Abdominal pain, acute, nonlo calized COMPARISON: None TECHNIQUE: Post contrast abdomen and pelvis CT. Co marialuisa and sagittal reformatted images obtained. DOSE REDUCTION: Dose modulation, iterati ve reconstruction, and/or weight-based adjustment of the mA/kV was utilized to reduce the radiation dose to as low as reasonably a chievable. FINDINGS: Lower thorax: Minimal bilateral lower lo be atelectasis. No pleural effusion. Liver: Multiple hypodense hepatic lesion s, somewhat ill-defined, concerning for metastatic disease. Intra uterine hepatic biliary ductal dilatation, particularly within t he left hepatic lobe. Trace pneumobilia. Gallbladder and biliary tree: Gallbladde r is nondistended. The bladder wall thickening. There is promin ence of the common bile duct proximally which tapers the level of the pancreatic head. Pancreas: Enlargement of the pancreatic head with Ill-defined pancreatic head hypodense lesion measuri ng approximately 2.1 x 1.7 cm concerning for adenocarcinoma. The pancr eatic tail is atrophic. Prominence of the pancreatic duct in the pancreatic tail. Spleen: No acute findings Adrenal Glands: No acute findings. Kidneys and ureters: Multiple hypodense renal lesions which are too small to characterize and remain indeter minate. Hypodensity of the bilateral upper pole renal cortex may be related to streak artifact and renal cysts however correlate with u rinalysis as pyelonephritis can have this appearance. Bilateral larg e exophytic renal cysts the largest of which the right lower pole me asuring 7.5 cm. No hydronephrosis or hydroureter. No nephro lithiasis. Bladder and reproductive organs: The majo dder is distended and thick-walled. Prostate gland is enlarged measuring up to 5.0 cm in the transverse dimension. Stomach and Duodenum: No significant fin dings. Small and large intestine: Normal calibe rs. Appendix: Normal. Major vascular structures: There is narr owing versus occlusion of the main portal vein near the confluence by the pancreatic head mass. Abdominal aorta is normal in caliber wit h atherosclerotic calcifications of the iliac arteries. Peritoneum and retroperitoneum: Trace fr ee fluid in the pelvis. Mesenteric soft tissue stranding may be related to volume status. Enlarged peripancreatic lymph node measu ring 1.4 cm in the short axis. No pneumoperitoneum. Skeleton: Multilevel degenerative change s visualized thoracolumbar spine. Few scattered lucent lesions with in the pelvis, particularly the 1.2 cm lesion in the right acetabulu m are indeterminate however metastatic disease can have this appeara nce recommend further evaluation with MRI. Additional findings: None. IMPRESSION: Ill-defined 2.1 cm hypodense pancreatic head mass is most consistent with pancreatic adenocarcinoma with hepa tic metastatic disease. There is associated narrowing versus short seg ment occlusion of the main portal vein and common bile duct. Thickening of the gallbladder wall with pericholecystic fluid may be reactive however if there is concern for acute cholecystitis recommend further evaluation with HIDA s can. Few scattered lucent lesions within the pelvis, are indeterminate however metastatic disease can have this appearance recommend further evaluation with MRI. Hypodensity of the bilateral upper poles renal cortex with thickening of the bladder wall. Findings could be a rtifactual related to chronic bladder outlet obstruction however corre late with urinalysis to exclude pyelonephritis and cystitis. Small hypodense renal lesions are not co mpletely characterized on this examination. Recommend further eval uation with dedicated renal protocol cross-sectional imaging on a no nemergent basis. Signed: Juan Chaudhary MD Report Verified Date/Time: 11/13/2019 0 2:19:44 Performing Organization Address City/State/[facility] Phone Number GE RIS PT/aPTT (11/12/2019 11:59 PM CDT) Protime 15.9 (H) 11.9 - 14.[address] [facility] INR 1.3 <=5.9 [facility] PTT 35.0 22.5 - 36.[address] [facility] Specimen Blood Narrative Performed At Effective 11/07/2018: PT Reference Range [facility] Change New: 11.9-14.2Previous: 11.7-14.7 RECOMMENDED COUMADIN/WARFARIN INR THERAPY RANGES STANDARD DOSE: 2.0-3.0Includes: PROPHYLAXIS for venous thrombosis, systemic embolization; TREATMENT for venous thrombosis and/or pulmonary embolus. HIGH RISK: Target INR is 2.5-3.5 for patients wiht mechanical heart valves. Performing Organization Address City/State/Zipcode Phone Number [facility] [address] [place] [address], [place] [id number] CENTER Lipase (11/12/2019 11:59 PM CDT)Only the most recent of2 resultswithin the time period is included. Lipase 95 (H) 8 - 78 U/L [facility] Specimen Blood Narrative Performed At Supervisor Customer Services ID - SACHA Montaño [facility] Performing Organization Address City/State/Zipcode Phone Number [facility] [address] [place] [address] CENTER EKG-SCANNED (03/13/2019 3:47 PM CDT)Only the most recent of2 resultswithin the time period is included. Narrative Performed At This result has an attachment that is no t available. Manual Differential (03/11/2019 4:55 AM CDT)Only the most recent of4 results within the time period is included. % Neutros 86 % [facility] % Lymphs 9 % [facility] % Monos 1 % [facility] % Eos 2 % [facility] % Metamyelo 2 (H) 0 - 0 % [facility] # Neutros 9.20 (H) 1.78 - 5.38 K/ul [facility] # Lymphs 0.96 (L) 1.32 - 3.57 K/ul [facility] # Monos 0.11 (L) 0.30 - 0.82 K/uL [facility] # Eos 0.21 0.04 - 0.54 K/uL [facility] H [facility] # Metamyelo 0.21 (H) 0.00 - 0.00 K/uL [facility] Total Counted 100 [facility] Smudge Cells Present [facility] Giant Platelet Present [facility] Hypochromia 1+ few [facility] An[facility]ocytosis 3+ many [facility] Macrocytes 3+ many [facility] Poikilocytes 1+ few [facility] Samuel Cells 1+ few [facility] Artifact Present [facility] Platelet Conc Adequate [facility] Specimen Blood Narrative Performed At Received comment: [facility] User comments: Slide comments: Performing Organization Address City/[facility] Cent[facility]ode Phone Number [address] [address] CENTER REPORT OF PROCEDURE - ENDOSCOPY URL (03/10/2019 11:49 AM CDT) Narrative Performed At This result has an attachment that is no t available. Prothrombin time/INR (03/10/2019 7:33 AM CDT)Only the most recent of3 results within the time period is included. Protime 15.9 (H) 11.9 - 14.[address] [facility] INR 1.3 <=5.9 [facility] Specimen Blood Narrative Performed At Effective 11/07/2018: PT Reference Range [facility] Change New: 11.9-14.2Previous: 11.7-14.7 RECOMMENDED COUMADIN/WARFARIN INR THERAPY RANGES STANDARD DOSE: 2.0-3.0Includes: PROPHYLAXIS for venous thrombosis, systemic embolization; TREATMENT for venous thrombosis and/or pulmonary embolus. HIGH RISK: Target INR is 2.5-3.5 for patients wiht mechanical heart valves. Performing Organization Address City/State/[facility] Cent[facility]ode Phone Number [facility] [address] [place] [address] CENTER Potassium (03/09/2019 5:39 PM CDT) Potassium 3.8 3.5 - 5.1 meq/L [facility] Specimen Blood Performing Organization Address City/State/Zipcode Phone Number [facility] [address] [place] [address] [place] Urinalysis Microscopic Only (03/09/2019 12:38 AM CDT) RBC, UA <1 /HPF [facility] WBC, UA 1 /HPF [facility] Bacteria, UA Rare [facility] Mucus Rare [facility] Squam Epithel, UA <1 /HPF [facility] Granular Casts, UA 3 /LPF [facility] Specimen Urine Performing Organization Address City/[facility] Centercode Phone Number [address] [address] [place] Urinalysis with Microscopic If Indicated (03/09/2019 12:38 AM CDT) Color, UA Dark Yellow [facility] Clarity, UA Clear [facility] Specific [place], UA 1.008 1.001 - 1.035 [facility] pH, UA 6.0 5.0 - 8.0 [facility] Protein, UA 10 mg/dL (A) Negative [facility] Glucose, UA Negative Negative [facility] Ketones, UA Negative Negative [facility] Bilirubin, UA Positive (A) Negative [facility] Blood, UA Negative Negative [facility] Nitrite, UA Negative Negative [facility] Leukocytes, UA Small (A) Negative [facility] Urobilinogen, UA 0.2 0.2 - 1.0 mg/dL [facility] Specimen Source [facility] Specimen Urine Performing Organization Address City/[facility]/Zipcode Phone Number [address] [phone] [place] Lactic acid, venous (03/09/2019 12:37 AM CDT) Lactate, Venous 1.5 0.5 - 2.2 mmol/L [facility] Specimen Blood Narrative Performed At Specimen markedly icteric [facility] Performing Organization Address City/[facility] Centercode Phone Number [address] [address] [place] POC-Lactic Acid, Venous (03/08/2019 7:33 PM CDT)Only the most recent of2 resultswithin the time period is included. POC-Lactic Acid, Venous 1.8 (H)Comment: 0.9 - 1.7 mmol/L [facility] TESTED AT [address] [address] Specimen Blood Performing Organization Address [facility] Centercode Phone Number [address] [phone] [place] ECG 12 lead (03/08/2019 5:56 PM CDT) Specimen Narrative Performed At Ventricular Rate 89 BPM GE MUSE Atrial Rate 89 BPM P-R Interval 142 ms QRS Duration 86 ms Q-T Interval 354 ms QTC Calculation(Bazett) 430 ms P Clinton 43 degrees R Clinton -26 degrees T Clinton 13 degrees Sinus rhythm with occasional Premature v entricular complexes Otherwise normal ECG No previous ECGs available Confirmed by MD LINDA, MOISÉS Valdez ([id number]) on 9 4:47:49 PM Procedure Note Interface, External Ris In - 03/09/2019 4:48 PM CDT Ventricular Rate 89 BPM Atrial Rate 89 BPM P-R Interval 142 ms QRS Duration 86 ms Q-T Interval 354 ms QTC Calculation(Bazett) 430 ms P Clinton 43 degrees R Clinton -26 degrees T Clinton 13 degrees Sinus rhythm with occasional Premature v entricular complexes Otherwise normal ECG No previous ECGs available Confirmed by MD LINDA, MOISÉS Valdez ([id number]) on 03/09/2019 4:47:49 PM Performing Organization Address City/[facility] Centercode Phone Number CAITLIN DAMIAN Urinalysis w/Microscopic + Reflex to Culture (03/08/2019 5:26 PM CDT) Color, UA Dark Yellow [facility] Clarity, UA Clear [facility] Specific [place], UA 1.011 1.001 - 1.035 [facility] pH, UA 6.0 5.0 - 8.[address] [facility] Protein, UA 20 mg/dL (A) Negative [facility] Glucose, UA Negative Negative [facility] Ketones, UA Negative Negative [facility] Bilirubin, UA Positive (A) Negative [facility] Blood, UA Negative Negative [facility] Nitrite, UA Negative Negative [facility] Leukocytes, UA Small (A) Negative [facility] Urobilinogen, UA 0.2 0.2 - 1.0 mg/dL [facility] RBC, UA <1 /HPF [facility] WBC, UA 6 /HPF [facility] Specimen Source [facility] Specimen Urine Performing Organization Address City/[facility]/Zipcode Phone Number [facility] [address] [place] [address] CENTER Sodium, random urine (03/08/2019 5:26 PM CDT)Only the most recent of3 results within the time period is included. Sodium Urine 51 meq/L [facility] Specimen Urine Narrative Performed At Reference Range: No Normals [facility] Performing Organization Address City/[facility]/Zipcode Phone Number [facility] [address] [place] [phone] [place] Creatinine, random urine (03/08/2019 5:26 PM CDT)Only the most recent of3 resultswithin the time period is included. Creatinine, Ur 84.6 mg/dL [facility] Specimen Urine Narrative Performed At Reference Range: No Normals [facility] Performing Organization Address [facility]/Zipcode Phone Number [address] [address] [place] Procalcitonin (03/08/2019 5:10 PM CDT) Procalcitonin 3.46 (H) <0.05 ng/mL [facility] Specimen Blood Narrative Performed At SEPSIS RISK (ng/mL) [facility] Low:0.05-0.50 Intermediate: 0.51-2.00 High: >=2.01 Performing Organization Address [facility] Centercoct Phone Number [address] [phone] [place] XR chest 1 view portable / bedside (03/08/2019 5:10 PM CDT) Specimen Narrative Performed At FINAL REPORT [place] History: Generalized weakness. FINDINGS: Chest, single view: Single AP view of the chest shows a norm al size heart. The thoracic aorta is moderately tortuous. Lungs are clear, free of edema, focal consolidation or visible effusions. Mini mal opacity in the right lower lobe likely represents atelectasis . Bones appear osteopenic but are otherwise unremarkable. IMPRESSION: 1. Negative for acute cardiopulmonary di sease. Tortuous aorta and great vessels are noted. Signed: Nancy Riojas MD Report Verified Date/Time:03/08/2019 17:53:00 Reading Location: [facility] Procedure Note Interface, External Ris In - 03/08/2019 5:55 PM CDT FINAL REPORT History: Generalized weakness. FINDINGS: Chest, single view: Single AP view of the chest shows a norm al size heart. The thoracic aorta is moderately tortuous. Lungs are clear, free of edema, focal consolidation or visible effusions. Mini mal opacity in the right lower lobe likely represents atelectasis . Bones appear osteopenic but are otherwise unremarkable. IMPRESSION: 1. Negative for acute cardiopulmonary di sease. Tortuous aorta and great vessels are noted. Signed: Nancy Riojas MD Report Verified Date/Time: 03/08/2019 1 7:53:00 Reading Location: [facility] Performing Organization Address [facility] Centercoct Phone Number [place] Troponin I (03/08/2019 5:10 PM CDT) Troponin I <0.01 0.00 - 0.03 ng/mL [facility] Specimen Blood Narrative Performed At Troponin I (TnI) levels must be interpreted [facility] in the context of the presenting symptoms and the clinical findings. Elevated TnI levels indicate myocardial damage, but are not specific for ischemic heart disease. Elevated TnI levels are seen in patients with other cardiac conditions (including myocarditis and congestive heart failure), and slight TnI elevations occur in patients with other conditions, including sepsis, renal failure, acidosis, acute neurological disease, and persistent tachyarrhythmia. Performing Organization Address [facility] Centercode Phone Number [address] [address] CENTER Blood culture (03/08/2019 5:10 PM CDT)Only the most recent of4 resultswithin the time period is included. Result No growth in [address] [facility] Specimen Blood Performing Organization Address [facility] Centercode Phone Number [address] [address] CENTER aPTT (03/08/2019 5:10 PM CDT) PTT 33.1 22.5 - 36.[address] [facility] Specimen Blood Performing Organization Address City/[facility]/Zipcode Phone Number [facility] [address] [place] [address] [place] Iron, TIBC, % sat. (without ferritin) (01/09/2019 5:39 AM CDT) Iron 108.0 40.0 - 160.0 ug/dL [facility] TIBC 156 (L) 250 - 450 ug/dL [facility] Iron % Saturation 69 (H) 20 - 55 % [facility] Specimen Blood Performing Organization Address City/[facility]/Zipcode Phone Number [facility] [address] [place] [address] [place] Ferritin (01/09/2019 5:39 AM CDT) Ferritin 4,058 (H) 5 - 275 ng/mL [facility] Specimen Blood Performing Organization Address City/[facility]/Zipcoct Phone Number [facility] [address] [place] [address] [place] US renal complete (01/06/2019 8:39 PM CDT) Specimen Narrative Performed At FINAL REPORT yetu [facility] Ultrasound of the Kidneys Clinical History:TESS Discussion: Sonographic evaluation of the kidneys wa s performed. There is no prior study for direct comparison. Right kidney:9.6 x 5.9 x 4.8 cm, with cortical thi ckness of 1.2 cm. Mildly increased cortical echogenicity. 7.6 x 7.2 x 6.3 cm simple cyst in the lower pole.No shadowing calculus. No hydronephrosis. Left kidney: 10.1 x 5.7 x 4 cm, with cor tical thickness of 1.1 cm. Mildly increased cortical echogenicity. 5.9 x 4.7 x 5.2 cm simple cyst in the lower pole.No shadowing calculus.No hydronephrosis. Limited doppler evaluation of bilateral main renal arteries and veins demonstrate patency. Bladder:Markedly distended but thin walled with a volume of 986 cc. A postvoid residual was not recorded as the patient was unable to void. Miscellaneous: Trace free fluid in Morri son's pouch. Impression: Mildly echogenic bilateral kidneys in clear view behavioral health with medical renal disease. Simple bilateral renal cysts. Markedly distended urinary bladder. Nazia elate clinically for urinary retention. Trace free fluid in Rees's pouch. Signed: Elvin Willson MD Report Verified Date/Time:01/06/2019 22:38:44 Procedure Note Interface, External Ris In - 01/06/2019 10:41 PM CDT FINAL REPORT Ultrasound of the Kidneys Clinical History: TESS Discussion: Sonographic evaluation of the kidneys wa s performed. There is no prior study for direct comparison. Right kidney: 9.6 x 5.9 x 4.8 cm, with cortical thickness of 1.2 cm. Mildly increased cortical echogenicity. 7.6 x 7.2 x 6.3 cm simple cyst in the lower pole. No shadowing ca lculus. No hydronephrosis. Left kidney: 10.1 x 5.7 x 4 cm, with cor tical thickness of 1.1 cm. Mildly increased cortical echogenicity. 5.9 x 4.7 x 5.2 cm simple cyst in the lower pole. No shadowing ca lculus. No hydronephrosis. Limited doppler evaluation of bilateral main renal arteries and veins demonstrate patency. Bladder: Markedly distended but thin wa lled with a volume of 986 cc. A postvoid residual was not recorded as the patient was unable to void. Miscellaneous: Trace free fluid in Morri son's pouch. Impression: Mildly echogenic bilateral kidneys in clear view behavioral health with medical renal disease. Simple bilateral renal cysts. Markedly distended urinary bladder. Nazia elate clinically for urinary retention. Trace free fluid in Rees's pouch. Signed: Elvin Willson MD Report Verified Date/Time: 01/06/2019 2 2:38:44 Performing Organization Address City/State/Zipcode Phone Number RIS REPORT OF PROCEDURE - ENDOSCOPY URL (01/06/2019 5:44 PM CDT) Narrative Performed At This result has an attachment that is no t available. REPORT OF PROCEDURE - ENDOSCOPY URL (01/06/2019 5:32 PM CDT) Narrative Performed At This result has an attachment that is no t available. 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 [facility] Signing Pathologist Direct Phone Line: CPT Code(s) 36722, [address] [facility] CLINICAL HISTORY Pre and postop diagnosis: [facility] Manuel ECHEVERRIAStreetOwlManuel [facility] pancreatic mass [facility] SPECIMEN SOURCE Ampulla biopsy [facility] EATONFive Prime TherapeuticsManuel HE ALTH [facility] GROSS DESCRIPTION Received in formalin labeled [email or web address] with the patient's name, [facility] accession number and "ampulla" is a 0.1 cm lamb soft tissue fragment which is submitted in toto in A1. CG/pl MICROSCOPIC DESCRIPTION Microscopic examination is p erformed and the findings are incorporated in the diagnostic line. [email or web address] Immunostain for p53 shows a wild type expression pattern. [facility] SPECIAL STUDIES The interpretation of this c ase included the use of immunohistochemistry or special stains. [facility] Control Slides Examined: In -house known positive controls were evaluated along with the test tissue. These control slides run alongside of the patients sample show appropriate staining. Internal posit chantal and negative controls when available are eliatianna campos Immunohistochemistry techndominic al testing was performed at [facility] Pathology Laboratory where it was developed and its performance characteristics were determined. It has not be en cleared or approved by [facility] U.S. Food and Drug Administration. The FDA has determined that such clearance or approval is not necessary. The test is used for clinical purposes. It should not be regarde d as investigational or for research. This laboratory is certified under the Clinical Laboratory Improvement Amendments of 1988 (CLIA-88) as qualified to perform high complexity clinical laboratory testing. Specimen Tissue - Ampulla Performing Organization Address City/State/Zipcode Phone Number [facility] [address] [place] [address] [place] CYTOLOGY REQUEST (01/06/2019 3:01 PM CDT) Cytology See Separate Report [facility] Specimen Brushings Performing Organization Address City/[facility]/Zipcode Phone Number [place] [phone] [place] [address] [place] Cytology (01/06/2019 3:01 PM CDT) Case Report Medical Cytology Report Case: [id number] [facility] Authorizing Provider:Shmuel Acuña Collected: 01/06/2019 1501 [facility] MD Clary Ordering Location: [address] Received:01/07/2019 0927 Service Pathologist: Rhys Oliver MD Specimen:Common Bile Duct, Distal common bile duct stricture brushing in CRR for routine cyto DIAGNOSIS COMMON BILE DUCT BRUSHING (CYTOSPINS AND CELL BL OCK): [facility] - CLUSTERS OF HIGHLY ATYP ICAL CELLS, COMPATIBLE WITH ADENOCARCINOMA (SEE COMMENT) [facility] Signing Pathologist Direct Phone Line: [phone] COMMENT Cytospins and cell block [facility] sections show clusters of [facility] atypical cells with overlapping architecture, nuclear enlargement, irregular nuclear membrane, clumpy chromatin distribution, some focal prominent nucleoli. Some significantly enlarged nuclei and scattered single atypical cells are seen in the background. Additionally, the patient concurrent ampulla biopsy ([id number]) shows marked cytologic atypia. Taken together, the features are most compatible with a diagnosis of adenocarcinoma. CPT Code(s) 17796, 88418 [facility] CLINICAL DATA Distal common bile duct [facility] stricture, pancreatic mass [facility] SPECIMEN SOURCE COMMON BILE DUCT BRUSHING [facility] GROSS DESCRIPTION 1 brush tip in 25 mls cytori ch red; 2 cytospins, cell block (collodion bag) [facility] Collected: [id number] [facility] MEDICAL CE NTER Received: [id number] STATEMENT OF ADEQUACY Satisfactory [facility] ER Gross assessment was [facility] performed at [place], Department of [facility] Pathology, [address] [place] [address], Technical component was [facility] performed at [place], Department of [facility] Pathology, [address] [place] [id number], Professional component was [facility] performed at [place], Department of [facility] Pathology, [address] [place] [address], Specimen Brushings Narrative Performed At This result has an attachment that is no t available. Performing Organization Address City/[facility]/Zipcode Phone Number [address] [address] [place] Osmolality, serum (01/06/2019 3:30 AM CDT) Osmolality Serum 265 (L) 275 - 295 mOsm/kg [facility] Specimen Blood Performing Organization Address City/[facility]/Zipcode Phone Number [address] [address] CENTER Urea Nitrogen, random urine (01/05/2019 7:17 PM CDT) Urea Nitrogen, Ur 500 mg/dL [facility] Specimen Urine Narrative Performed At Reference Range: No Normals [facility] Performing Organization Address [facility]/Zipcode Phone Number [address] [address] C[place] Osmolality, urine (01/05/2019 7:17 PM CDT)Only the most recent of2 results within the time period is included. Osmolality, Ur 443 40-1,400 mOsm/kg [facility] Specimen Urine Performing Organization Address City/State/Zipcode Phone Number [facility] [address], [place] [phone] CENTER after 12/04/2018 Insurance Payer Benefit Plan / Group Subscriber ID Type Phone A ddress [facility] - MEDICARE UNITED MEDICARE HMO xxxxxxxxx MGD CARE Advance Directives For more information, please contact:[facility] kofiMultiCare [facility] HospitalBtpond[address] [place], [place] [phone] Code Status Date Activated Date Inactivated Comments Full Code 11/13/2019 5:24 AM 11/15/2019 2:38 PM This code status was determined by: Patient Full Code 03/08/2019 5:02 PM 03/13/2019 5:56 PM This code status was determined by: Patient Full Code 01/05/2019 5:06 AM 01/09/2019 6:43 PM This code status was determined by: Patient
--- OUTSIDE RECORDS SUMMARY | 2019-12-05 18:23 | XMS REPORT | Continuity of Care Document ---
:1935 Author Organization [facility] t Address [address] [place] [address] Care Team Providers Name Role Phone CARMELITA Primary Care Physician Unavailable Ron NAGY Attending Clinician Byron JEREZ Attending Clinician Yenny Alonso MD Attending Clinician Pastor Rodriguez CRNA Attending Clinician Duarte Ramachandran MD Attending Clinician RON Attending Clinician Unavailable Skyla DILLON Attending Clinician Cruz LOWERY Attending Clinician Unavailable Cruz Lowery MD Attending Clinician Jordana JEREZ Attending Clinician Anabella Angulo MD Attending Clinician Blessing JEREZ Attending Clinician Guillermo Alfredo CRNA Attending Clinician Familia Shin Attending Clinician Blessing JEREZ Attending Clinician Gerardo JEREZ Attending Clinician Familia ROSE Attending Clinician Unavailable Familia Rose MD Attending Clinician Boris Thornton MD Attending Clinician Juany JEREZ Attending Clinician CARMELITA Attending Clinician Unavailable YENNY ALONSO Admitting Clinician Unavailable JORDANA Admitting Clinician Unavailable Familia ROSE Admitting Clinician Unavailable CARMELITA Admitting Clinician Unavailable Payers Payer Name Policy Type Policy Number Effective Date Expiration Date [facility] xxxxxxxxx [facility] Problems Condition Condition Condition Status Onset Resolution Last Treating Co mments Source Name Details Category Date Date Treatment Clinician Date Pancreatic Pancreatic Disease Active [facility] cancer cancer 11-12 [facility] - [facility]: Medical [place] 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[facility] obstructio 11-12 Elaine kes - n n 00:00: Medical 00 [place] Sepsis Sepsis Disease Active [facility] 03[facility] - [facility] Medical [place] Cholangiti Cholangiti Disease Active [facility] s 03-09 [facility] - [facility] Medical 00 Center Obstructiv Obstructiv Disease Active [facility] e jaundice e jaundice 03-09 Elaine kes - 00:00: Medical 00 Center 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 [facility] - of head of of head of 00:00: Vt dical pancreas pancreas 00 Center Hypokalemi Hypokalemi Disease Active [facility] a a 03-09 [facility] - 00:[facility]: Medical 00 Center Hyponatrem Hyponatrem Disease Active [facility] ia ia 03-09 [facility] - 00:[facility]: Medical 00 Center 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 Family History Family Member Diagnosis Comments Start Date Stop Date Source Natural father Heart disease [facility] Natural father Hyperlipidemia [facility] Social History Social Habit Start Date Stop Date Quantity Comments Source History [facility] - Alcohol Std Drinks Medica l [place] History [facility] - Alcohol Binge Medical [address]ngel ter Sex Assigned At [facility] Alcohol Comment 2019-01-06 2019-01-06 occasional beer [facility] - 00:00:00 00:00:00 [facility] Center History SDOH 2019-01-05 2019-01-05 1 [facility] - Alcohol Frequency 00:00:00 00:00:00 [facility] Smoking Status Start Date Stop Date Source Never smoker [facility] edical [place] Medications Ordered Filled Start Stop Current Ordering Indication Dosage Frequency Signature Comments Components Source Medication Medication Date Date Medication? Clinician (SIG) Name Name lisinopril 2019- No high blood 30mg QD Take [address] (PRINIVIL,Z 6-05 06-05 pressure by mouth [facility] - ESTRIL) 30 09:21: 00:00 daily. Medi donya MG tablet 48 :00 [place] amoxicillin 2018-06- No 1{tbl} Q.5D Take [address] -clavulanat 0-02 10-02 tablet by Elaine canales - e 12:20: 00:00 mouth 2 Medical (AUGMENTIN) 13 :00 (two) [place] 875-125 mg times per tablet daily. potassium 2018-06- No 8meq QD Take 1 [facility] t chloride 0-02 10-01 tablet (8 [facility] - (KLOR-CON) 00:00: 23:59 mEq total) Medical 8 MEQ CR 00 :00 by mouth Center tablet daily. diphenhydrA 2018-06- No 12.5mg Take [address] MINE 12.5 012 (12.5 mg [facility] - mg/5 mL 00:00: 23:59 total) by [facility] donya (BENADRYL) 00 :00 mouth Center 12.5 mg/5 every 8 mL elixir (eight) hours as needed for Itching for up to 10 days. metroNIDAZO 2018-06- No 500mg Take [address] LE (FLAGYL) 003-15 tablet [facility] - 500 MG 00:00: 23:59 (500 mg Medical tablet 00 :00 total) by Center mouth every 8 (eight) hours for 2 days. ciprofloxac 2018-06- No 500mg Q.5D Take [address] in HCl 03-15 tablet [facility] - (CIPRO) 500 00:00: 23:59 (500 mg Me dical MG tablet 00 :00 total) by Cente r mouth 2 (two) times daily for 2 days. hydroCHLORO Yes 12.5mg QD Take 12.[address] thiazide 9-27 mg by [facility] - (MICROZIDE) 21:56: mouth Medic al 12.5 mg 47 daily. Center capsule docusate Yes 100mg Q.5D Take [address] sodium 9-27 mg by [facility] - (COLACE) 19:45: mouth 2 Medica l 100 MG 22 (two) Center capsule times daily. tamsulosin 2019 Yes .4mg QD Take 0.[address] (FLOMAX) 9-27 mg by [facility] - 0.4 mg Cap 19:45: mouth Medica l 24 hr 22 daily. Center capsule acetaminoph 2019 Yes 650mg Take [address] en 9-27 mg by [facility] - (TYLENOL) 19:45: mouth Medical 325 MG 22 every 6 Center tablet (six) hours as needed for Pain. tamsulosin 2019- No .4mg QD Take [address] (FLOMAX) 802-09 capsule [facility] - 0.4 mg Cap 00:00: 23:59 (0.4 mg Med ical 24 hr 00 :00 total) by Center capsule mouth daily for 30 days. nebivolol 2018- No 10mg QD Take [address] (BYSTOLIC) 01-09 by mouth Luke s - 10 MG 13:09: 00:00 daily. Medical tablet 32 :00 [place] hydroCHLORO 2018- No 12.5mg QD Take 12.[address] thiazide - 07-31 mg by [facility] - (MICROZIDE) 13:09: 00:00 mouth Medi donya 12.5 mg 32 :00 daily. [place] capsule lisinopril 2018- No 30mg QD Take [address] (PRINIVIL,Z 01-09 by mouth Gt es - ESTRIL) 30 13:09: 00:00 daily. Medi donya MG tablet 32 :00 [place] hydrOXYzine 2018- No 25mg Q.25D Take [address] (ATARAX) 25 01-09 by mouth 4 L ukes - MG tablet 13:09: 00:00 (four) Medic al 32 :00 times Center daily. cholecalcif Yes 09881L Q7D Take [facility] marianna, - 50,000 [facility] - vitamin D3, 05:55: Units by Vt dical 50,000 unit 13 mouth once Ce nter Tab a week. allopurinol Yes 300mg QD Take [address] (ZYLOPRIM) 7- mg by [facility] - 300 MG 05:55: mouth Medical tablet 12 daily. [place] Vital Signs Vital Name Observation Time Observation Value Comments Source Systolic blood 2019-11-15 07:57:00 118 mm[Hg] [facility] Diastolic blood 2019-11-15 07:57:00 70 mm[Hg] [facility] S t [facility] Heart rate 2019-11-15 07:57:00 78 /min [facility] Body temperature 2019-11-15 07:57:00 36.33 Oly [facility] Respiratory rate 2019-11-15 07:57:00 18 /min [facility] Oxygen saturation in 2019-11-15 07:57:00 100 /min [facility] - Arterial blood by Medical Ce nter Pulse oximetry Body height 2019-11-12 18:21:00 177.8 cm [facility] Body weight Measured 2019-11-12 18:21:00 68.04 kg [facility] BMI 2019-11-12 18:21:00 21.52 kg/m2 [facility] Procedures Procedure Date / Time Performing Clinician Source Performed RHYTHM STRIP - SCAN 2019-11-20 15:40:39 Provider, Default [facility] RHYTHM STRIP - SCAN 2019-11-18 11:01:59 Provider, Default [facility] BASIC METABOLIC PANEL (7) 2019-11-15 05:05:00 [facility]ON[facility]ED 2019-11-15 05:05:00 [facility]OS[facility] 2019-11-15 05:05:00 [facility] MAG[facility]UM 2019-11-15 05:05:00 [facility] URIC ACID 2019-11-15 05:05:00 [facility] CBC W/PLT COUNT & AUTO 2019-11-15 05:05:00 Hieu Matthews [facility] REPORT OF PROCEDURE - 2019-11-14 17:02:[address] [facility] ENDOSCOPY [facility] [place] ERCP 2019-11-14 16:00:00 Shmuel Ramachandran [facility] ERCP,BALLOON SWEEPING 2019-11-14 15:00:00 Shmuel Ramachandran [facility] PROCEDURE W/ C-ARM 2019-11-14 15:00:00 Shmuel Ramachandran [facility] ERCP,BILIARY STENT 2019-11-14 15:00:00 Shmuel Ramachandran [facility] HEPATIC FUNCTION PANEL 2019-11-14 03:42:00 Jamee Alonso [facility] TSH/FREE T4 IF INDICATED 2019-11-14 03:42:00 Hieu Matthews [facility] COMPREHENSIVE METABOLIC 2019-11-14 03:42:00 Hieu Matthews [facility] CALCIUM, IONIZED 2019-11-14 03:42:00 Hieu Matthews [facility] PHOSPHORUS 2019-11-14 03:42:00 Hieu Matthews [facility] MAGNESIUM 2019-11-14 03:42:00 Hieu Matthews [facility] CBC W/PLT COUNT & AUTO 2019-11-14 03:42:00 Hieu Matthews [facility] [place] HEPATOBILIARY (HIDA) 2019-11-13 14:42:00 Jamee Alonso [facility] COMPREHENSIVE METABOLIC 2019-11-13 10:52:00 Hieu Matthews [facility] BASIC METABOLIC PANEL (7) 2019-11-13 06:22:00 Jamee Alonso [facility] CBC W/PLT COUNT & AUTO 2019-11-13 06:22:00 Jamee lAonso [facility] URINALYSIS W/ MICROSCOPIC 2019-11-13 04:02:00 Roz Chicas [facility] CT ABDOMEN/PELVIS WITH IV 2019-11-13 01:41:00 Roz Chicas [facility] CONTRAST [facility] LIPASE 2019-11-12 23:59:00 [facility] 2019-11-12 23:59:00 Roz Chicas [facility] BASIC METABOLIC PANEL (7) 2019-11-12 23:59:[address] [facility] CBC W/PLT COUNT & AUTO 2019-11-12 23:59:00 Roz Chicas [facility] S [facility] RHYTHM STRIP - SCAN 2019-03-14 14:21:17 Provider, Default [facility] REPORT OF PROCEDURE - 2019-03-13 15:47:59 Provider, Default [facility] SCAN [facility] 2019-03-13 05:13:00 Angulo, Isabel Carranzan [facility] I [facility] MAGNESIUM 2019-03-13 05:13:00 Angulo, Isabel Carranzan [facility] CBC W/PLT COUNT & AUTO 2019-03-13 05:13:00 Angulo, Isabel [facility] 2019-03-12 04:36:00 Angulo, Isabel Carranzan I [facility] MAGNESIUM 2019-03-12 04:36:00 Angulo, Isabel Carranzan [facility] CBC W/PLT COUNT & AUTO 2019-03-12 04:36:00 Angulo, Isabel [facility] 2019-03-11 04:55:00 Angulo, Isabel Anabella [facility]ED[facility] MAGNESIUM 2019-03-11 04:55:00 Angulo, Isabel Carranzan [facility] CBC W/PLT COUNT & AUTO 2019-03-11 04:55:00 Angulo, Isabel Anabella [facility] (CELLAVISION MANUAL DIFF) 2019-03-11 04:55:00 Angulo, Isabel Kyle [facility] [place] ERCP 2019-03-10 11:55:00 Jared Shin [facility] REPORT OF PROCEDURE - 2019-03-10 11:49:[address] [facility] ERCP,STENT REMOVAL 2019-03-10 09:52:00 Jared Shin [facility] PROCEDURE W/ C-ARM 2019-03-10 09:52:00 Jared Shin [facility] ERCP,BALLOON SWEEPING 2019-03-10 09:52:00 Jared Shin [facility] ERCP,BILIARY STENT 2019-03-10 09:52:00 Jared Shin [facility] PROTHROMBIN TIME/INR 2019-03-10 07:33:00 Angulo, Isabel Anabella [facility] COMPREHENSIVE METABOLIC 2019-03-10 05:18:00 AnguloIsabel I [facility] MAGNESIUM 2019-03-10 05:18:00 AnguloIsabeln [facility] CBC W/PLT COUNT & AUTO 2019-03-10 05:18:00 AnguloIsabel [facility] (CELLAVISION MANUAL DIFF) 2019-03-10 05:18:00 Angulo, Isabel Carranzan [facility] POTASSIUM 2019-03-09 17:39:00 Angulo, Isabel Carranzan [facility] BASIC METABOLIC PANEL (7) 2019-03-09 04:11:00 [facility] HEPATIC FUNCTION PANEL 2019-03-09 04:11:00 Isaak Papriscila quesada [facility] CBC W/PLT COUNT & AUTO 2019-03-09 04:11:00 Isaak Papriscila quesada [facility] (CELLAVISION MANUAL DIFF) 2019-03-09 04:11:00 Thierno [facility] URINALYSIS WITH 2019-03-09 00:38:00 Ector Pa [facility] - MICROSCOPIC IF INDICATED [facility] URINALYSIS MICROSCOPIC 2019-03-09 00:38:00 Jane Pa [facility] LACTIC ACID, VENOUS 2019-03-09 00:37:00 Ector Pa [facility] BASIC METABOLIC PANEL (7) 2019-03-09 00:37:00 Thierno [facility]well [facility] MAGNESIUM 2019-03-09 00:37:00 [facility] POCT-LACTIC ACID, VENOUS 2019-03-08 19:33:00 Du Lowery [facility] ECG 12-LEAD 2019-03-08 17:56:55 Unknown, Hl7 Doctor [facility] URINALYSIS W/ REFLEX 2019-03-08 17:26:00 Nancy Steve [facility] URINE CULTURE [facility] SODIUM, RANDOM URINE 2019-03-08 17:26:00 [facility]ierno [facility] CREATININE, RANDOM URINE 2019-03-08 17:26:00 Thierno [facility] greyson [facility] POCT-LACTIC ACID, VENOUS 2019-03-08 17:22:00 Du Lowery [facility] BLOOD CULTURE 2019-03-08 17:10:00 Nancy Steve [facility] XR CHEST 1 VIEW 2019-03-08 17:10:[address] [facility] PORTABLE/BEDSIDE [facility] BASIC METABOLIC PANEL (7) 2019-03-08 17:10:00 Nancy Steve [facility] HEPATIC FUNCTION PANEL 2019-03-08 17:10:00 Nancy Steve [facility] LIPASE 2019-03-08 17:10:00 Nancy Steve [facility] TROPONIN I 2019-03-08 17:10:00 Nancy Steve [facility] PROCALCITONIN 2019-03-08 17:10:00 Du Lowery [facility] MAGNESIUM 2019-03-08 17:10:00 Du Lowery [facility] PHOSPHORUS 2019-03-08 17:10:00 Du Lowery [facility] APTT 2019-03-08 17:10:00 Du Lowery [facility] PROTHROMBIN TIME/INR 2019-03-08 17:10:00 Du Lowery [facility] CBC W/PLT COUNT & AUTO 2019-03-08 17:10:00 Nancy Steve [facility] RHYTHM STRIP - SCAN 2019-01-10 11:30:14 Provider, [facility] REPORT OF PROCEDURE - 2019-01-10 11:30:04 Provider, Default [facility] ENDOSCOPY SCAN Scanning [facility] COMPREHENSIVE METABOLIC 2019-01-09 05:39:00 [facility]ON, TIBC, % SAT. 2019-01-09 05:39:00 Lacy Branch [facility] (WITHOUT FERRITIN) [facility] r FERRITIN 2019-01-09 05:39:00 Lacy Branch [facility] RHYTHM STRIP - SCAN 2019-01-08 14:03:58 ProviderJose [facility] COMPREHENSIVE METABOLIC 2019-01-08 05:39:00 Meliton Harrington [facility] CBC W/PLT COUNT & AUTO 2019-01-08 05:39:00 Juany, [facility] (CELLAVISION MANUAL DIFF) 2019-01-08 05:39:00 [facility] BASIC METABOLIC PANEL (7) 2019-01-07 05:43:[address] [facility] HEPATIC FUNCTION PANEL 2019-01-07 05:43:00 Meliton Harrington [facility] CBC W/PLT COUNT & AUTO 2019-01-07 05:43:00 Juany, [facility] US RENAL COMPLETE 2019-01-06 20:39:00 Francisco Solitario [facility] REPORT OF PROCEDURE - 2019-01-06 17:44:16 [facility] REPORT OF PROCEDURE - 2019-01-06 17:32:16 Shmuel Ramachandran [facility] TISSUE EXAM 2019-01-06 15:21:00 [facility] [place] ERCP 2019-01-06 15:12:00 [facility] CYTOLOGY REQUEST 2019-01-06 15:01:25 Shmuel Ramachandran [facility] CYTOLOGY 2019-01-06 15:01:00 Shmuel Ramachandran [facility] ERCP,STENT REMOVAL 2019-01-06 13:53:00 Shmuel Ramachandran [facility] UPPER ENDOSCOPY 2019-01-06 13:53:00 Shmuel Ramachandran [facility] UPPER ENDOSCOPY,FNA 2019-01-06 13:53:00 Shmuel Ramachandran [facility] - /ULTRASOUND [facility] ERCP,BALLOON SWEEPING 2019-01-06 13:53:00 Shmuel Ramachandran [facility] ERCP,BILIARY STENT 2019-01-06 13:53:00 Shmuel Ramachandran [facility] ERCP W/BIOPSY 2019-01-06 13:53:00 Shmuel Ramachandran [facility] PROCEDURE W/ C-ARM 2019-01-06 13:53:00 Shmuel Ramachandran [facility] OSMOLALITY, SERUM 2019-01-06 03:30:00 [facility] COMPREHENSIVE METABOLIC 2019-01-06 03:30:00 Juany [facility] CBC W/PLT COUNT & AUTO 2019-01-06 03:30:00 Juany Meliton [facility] SODIUM, RANDOM URINE 2019-01-05 19:17:00 Kassi [facility] UREA NITROGEN, RANDOM 2019-01-05 19:17:00 Kassi [facility] CREATININE, RANDOM URINE 2019-01-05 19:17:00 Kassi [facility] OSMOLALITY, URINE 2019-01-05 19:17:00 [facility] BASIC METABOLIC PANEL (7) 2019-01-05 18:39:00 Francisco Solitario [facility] SODIUM, RANDOM URINE 2019-01-05 09:56:00 Pako Thornton [facility] CREATININE, RANDOM URINE 2019-01-05 09:56:00 [facility] OSMOLALITY, URINE 2019-01-05 09:56:00 [facility] URINALYSIS W/ MICROSCOPIC 2019-01-05 09:56:00 [facility] BLOOD CULTURE 2019-01-05 09:55:00 Juany, [facility] BLOOD CULTURE 2019-01-05 09:54:00 Juany [facility] CBC W/PLT COUNT & AUTO 2019-01-05 09:53:00 [facility] BASIC METABOLIC PANEL (7) 2019-01-05 07:13:00 [facility] HEPATIC FUNCTION PANEL 2019-01-05 07:13:00 [facility] PROTHROMBIN TIME/INR 2019-01-05 06:34:00 [facility] CBC W/PLT COUNT & AUTO 2019-01-05 06:34:00 [facility] Encounters Start End Encounter Admission Attending Care Care Encounter Source Date/Time Date/Time Type Type Clinicians Facility Department ID 2019-03-18 2019-03-18 Office CARYN Crum [id number] 10:46:39 11:16:39 Visit Basil AMBULATOR [id number] Y [id number] [id number] 2019-01-22 2019-01-22 Office CARYN Crum [id number] 10:24:59 13:24:15 Visit Basil AMBULATOR [id number] Y [id number] [id number] 2019-01-17 2019-01-17 Office CARYN Funk [id number] 14:49:11 15:51:15 Visit Tannaz AMBULATOR [id number] Y [id number] [id number] 2019-01-17 2019-01-17 Office CARYN Carrillo [id number] 09:41:49 11:49:50 Visit Abrahan AMBULATOR [id number] Y [id number] [id number] 2019-01-15 2019-01-15 Office CARYN Crum [id number] 13:34:05 14:04:05 Visit Brandon AMBULATOR [id number] Y 0.2.7.2.686 [id number] Results Test Description Test Time Test Comments Results Result Comments Source Calcium, Ionized 2019-11-15 05:54:00 Test Item Value Reference Range Interpretation Comme nts Calcium, Ion (test code = 1993-) 1.12 mmol/L 1.12-1.27 pH, Blood (test code = 82770-9) 7.37 [facility] [id number] 05:54:00 Test Item Value Reference Range Interpretation Comments CALCIUM IONIZED (BEAKER) (test 1.12 mmol/L 1.12-1.27 code = 698) PH, BLOOD (BEAKER) (test code = 7.37 1810) Basic Metabolic [id number] 05:40:00 Test Item Value Reference Range Interpretation Comments Sodium (test code = 128 meq/L 136-145 L 2951-2) Potassium (test code = 4.3 meq/L 3.5-5.1 Speci men slightly 2823-3) hemolyzed Chloride (test code = 103 meq/L 98-107 2075-0) CO2 (test code = 21 meq/L 22-29 L 2028-9) BUN (test code = 13 mg/dL 7-21 3094-0) Creatinine (test code 0.77 mg/dL 0.57-1.25 Specim en slightly = 2160-0) hemolyzed Glucose (test code = 98 mg/dL 70-105 2345-7) Calcium (test code = 8.1 mg/dL 8.4-10.2 L 49051-3) EGFR (test code = 116 mL/min/1.73 [place] [address]-2) NOT ACCURATE CREATININE CLEARANCE IN PREDICTING GLOMERULAR FILTRATION RATE . ESTIMATED GFR I S NOT APPLICABLE FOR DIALYSIS PATIENTS. JOHN (test code = JOHN) Shovel Log Loader Operator ID - PIAYA L Lab Interpretation Abnormal (test code = 31232-4) [facility] 05:40:00 Test Item Value Reference Range Interpretation Comments Magnesium (test code = 1.7 mg/dL 1.6-2.6 Speci men 10265-8) slightly hemolyzed JOHN (test code = JOHN) Shovel Log Loader Operator ID - PIAYA L Lab Interpretation Normal (test code = 08382-9) [facility]2020-06-05 05:40:00 Test Item Value Reference Range Interpretation Comments Phosphorus (test code 2.3 mg/dL 2.3-4.7 Specim en = 2777-1) slightly hemolyzed JOHN (test code = JOHN) Shovel Log Loader Operator ID - PIAYA L Lab Interpretation Normal (test code = 08519-4) [facility] HospitalUric [id number] 05:40:00 Test Item Value Reference Range Interpretation Comments Uric Acid (test code = 2.9 mg/dL 2.6-7.2 Speci men 3084-1) slightly hemolyzed JOHN (test code = JOHN) Shovel Log Loader Operator ID - PIAYA L Lab Interpretation Normal (test code = 11480-1) [facility]UM2020-06-05 05:40:00 Test Item Value Reference Range Interpretation Comments MAGNESIUM (BEAKER) 1.7 mg/dL 1.6-2.6 Specimen slightly (test code = 627) hemolyzed [employer] Loader Operator ID - PIAYA [id number] 05:40:00 Test Item Value Reference Range Interpretation Comments PHOSPHORUS (BEAKER) 2.3 mg/dL 2.3-4.7 Specimen slightly (test code = 604) hemolyzed [employer] Loader Operator ID - PIAYA LURIC [id number] 05:40:00 Test Item Value Reference Range Interpretation Comments URIC ACID (BEAKER) 2.9 mg/dL 2.6-7.2 Specimen slightly (test code = 773) hemolyzed Sho[employer] Log Loader Operator ID - PIAYA LBASIC METABOLIC [id number] 05:40:00 Test Item Value Reference Range Interpretation Comments SODIUM (BEAKER) 128 meq/L 136-145 L (test code = 381) POTASSIUM (BEAKER) 4.3 meq/L 3.5-5.1 Specimen slightly (test code = 379) hemolyzed CHLORIDE (BEAKER) 103 meq/L 98-107 (test code = 382) CO2 (BEAKER) (test 21 meq/L 22-29 L code = 355) BLOOD UREA NITROGEN 13 mg/dL 7-21 (BEAKER) (test code = 354) CREATININE (BEAKER) 0.77 mg/dL 0.57-1.25 Specimen slightly (test code = 358) hemolyzed GLUCOSE RANDOM 98 mg/dL 70-105 (BEAKER) (test code = 652) CALCIUM (BEAKER) 8.1 mg/dL 8.4-10.2 L (test code = 697) EGFR (BEAKER) (test 116 mL/min/1.73 ESTIM ATED GFR IS code = 1092) sq m NOT ACCURATE CREATININE CLEARANCE IN PREDICTING GLOMERULAR FILTRATION RATE . ESTIMATED GFR I S NOT APPLICABLE FOR DIALYSIS PATIEN TS. Shovel Log Loader Operator ID - PIAYA LCBC with platelet count + automated [id number] 05:36:00 Test Item Value Reference Range Interpretation Comments WBC (test code = 6690-2) 7.1 3.5- 10.5 K/L RBC (test code = 789-8) 2.47 4.63- 6.08 M/L L MCHC (test code = 786-4) 33.2 32.3- 36.5 GM/DL L Hematocrit (test code = 4544-3) 23.8 % 40.1-51 L MCV (test code = 787-2) 96.4 fL 79-92.2 H MCH (test code = 785-6) 32.0 pg 25.7-32.2 RDW (test code = 788-0) 15.0 % 11.6-14.4 H Platelets (test code = 777-3) 273 150- 450 K/CU MM MPV (test code = 35978-3) 10.0 fL 9.4-12.4 nRBC (test code = 413) 0 0- 0 /100 WBC % Neutros (test code = 429) 71 % % Lymphs (test code = 430) 19 % % Monos (test code = 431) 9 % % Eos (test code = 432) 1 % % Baso (test code = 437) 0 % # Neutros (test code = 670) 5.03 1.78- 5.38 K/L # Lymphs (test code = 414) 1.34 1.32- 3.57 K/L # Monos (test code = 415) 0.64 0.30- 0.82 K/L # Eos (test code = 416) 0.04 0.04- 0.54 K/L # Baso (test code = 417) 0.01 0.01- 0.08 K/L Immature Granulocytes-Relative 1 % 0-1 (test code = 2801) Lab Interpretation (test code = Abnormal 39512-9) [facility] W/PLT COUNT & AUTO [id number] 05:36:00 Test Item Value Reference Range Interpretation Comments WHITE BLOOD CELL COUNT (BEAKER) 7.1 K/ L 3.5-10.5 (test code = 775) RED BLOOD CELL COUNT (BEAKER) 2.47 M/ L 4.63-6.08 L (test code = 761) HEMOGLOBIN (BEAKER) (test code = 7.9 GM/DL 13.7-17.5 L 410) HEMATOCRIT (BEAKER) (test code = 23.8 % 40.1-51.0 L 411) MEAN CORPUSCULAR VOLUME (BEAKER) 96.4 fL 79.0-92.2 H (test code = 753) MEAN CORPUSCULAR HEMOGLOBIN 32.0 pg 25.7-32.2 (BEAKER) (test code = 751) MEAN CORPUSCULAR HEMOGLOBIN CONC 33.2 GM/DL 32.3-36.5 (BEAKER) (test code = 752) RED CELL DISTRIBUTION WIDTH 15.0 % 11.6-14.4 H (BEAKER) (test code = 412) PLATELET COUNT (BEAKER) (test 273 K/CU MM 150-450 code = 756) MEAN PLATELET VOLUME (BEAKER) 10.0 fL 9.4-12.4 (test code = 754) NUCLEATED RED BLOOD CELLS 0 /100 WBC 0-0 (BEAKER) (test code = 413) NEUTROPHILS RELATIVE PERCENT 71 % (BEAKER) (test code = 429) LYMPHOCYTES RELATIVE PERCENT 19 % (BEAKER) (test code = 430) MONOCYTES RELATIVE PERCENT 9 % (BEAKER) (test code = 431) EOSINOPHILS RELATIVE PERCENT 1 % (BEAKER) (test code = 432) BASOPHILS RELATIVE PERCENT 0 % (BEAKER) (test code = 437) NEUTROPHILS ABSOLUTE COUNT 5.03 K/ L 1.78-5.38 (BEAKER) (test code = 670) LYMPHOCYTES ABSOLUTE COUNT 1.34 K/ L 1.32-3.57 (BEAKER) (test code = 414) MONOCYTES ABSOLUTE COUNT (BEAKER) 0.64 K/ L 0.30-0.82 (test code = 415) EOSINOPHILS ABSOLUTE COUNT 0.04 K/ L 0.04-0.54 (BEAKER) (test code = 416) BASOPHILS ABSOLUTE COUNT (BEAKER) 0.01 K/ L 0.01-0.08 (test code = 417) IMMATURE GRANULOCYTES-RELATIVE 1 % 0-1 PERCENT (BEAKER) (test code = 2801) [place], [id number] 16:29:00Reason for exam:->Biliary ObstructionFINAL REPORT TECHNIQUE: Fluoroscopic images from endoscopic retrograde cholangiopancreatography. INDICATION: Biliary obstruction. COMPARISON: 03/10/2019. IMPRESSION:Fluoroscopic images from endoscopic retrograde cholangiopancreatography, not obtained by the undersigned. Please refer to endoscopy note for more details of the procedure and findings. Fluoroscopy time: 64 secondsNumber of images: 5 Signed: Dorian Crenshaw MDReport Verified Date/Time: 11/14/2019 16:29:17 Reading Location: [address] Consult Reading Room [place] [id number] 16:29:00Interface, External Ris In - 11/14/2019 4:31 PM CDTFINAL REPORT TECHNIQUE: Fluoroscopic images from endoscopic retrograde cholangiopancreatography. INDICATION: Biliary obstruction. COMPARISON: 03/10/2019. IMPRESSION:Fluoroscopic images from endoscopic retrograde cholangiopancreatography, not obtained by the undersigned. Please refer to endoscopy note for more details of the procedure and findings. 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 Lab Interpretation (test Normal code = 54580-9) [facility] T[facility] IF [id number] 06:32:00 Test Item Value Reference Range Interpretation Comments THYROID STIMULATING HORMONE 1.579 uIU/mL 0.350-4.940 (BEAKER) (test code = 772) Shovel Log Loader Operator ID - BSComprehensive metabolic [id number] 05:06:00 Test Item Value Reference Range Interpretation Comments Protein, Total (test 7.5 6.0- 8.3 gm/dL code = 2885-2) Albumin (test code = 2.4 g/dL 3.5-5 L 94551-1) Alkaline Phosphatase 329 U/L 40-150 H (test code = 6768-6) Total Bilirubin (test 1.3 mg/dL 0.2-1.2 H code = 1975-2) Sodium (test code = 124 meq/L 136-145 L 2951-2) Potassium (test code = 3.8 meq/L 3.5-5.1 2823-3) Chloride (test code = 99 meq/L 98-107 2075-0) CO2 (test code = 22 meq/L 22-29 2028-9) BUN (test code = 18 mg/dL 7-21 3094-0) Creatinine (test code 0.82 mg/dL 0.57-1.25 = 2160-0) Glucose (test code = 99 mg/dL 70-105 2345-7) Calcium (test code = 8.2 mg/dL 8.4-10.2 L 83622-1) AST (test code = 45 U/L 5-34 H 1920-8) ALT (test code = 19 U/L 6-55 1742-6) EGFR (test code = 108 mL/min/1.73 [place] [address]-9) NOT ACCURATE CREATININE CLEARANCE IN PREDICTING GLOMERULAR FILTRATION RATE . ESTIMATED GFR I S NOT APPLICABLE FOR DIALYSIS PATIENTS. JOHN (test code = JOHN) Shovel Log Loader Operator ID - BS Lab Interpretation Abnormal (test code = 80225-0) [facility] HospitalHepatic function [id number] 05:06:00 Test Item Value Reference Range Interpretation Comments Protein, Total (test code = 7.5 6.0- 8.3 gm/dL 2885-2) Albumin (test code = 2.4 g/dL 3.5-5 L 47677-1) Total Bilirubin (test code = 1.3 mg/dL 0.2-1.2 H 1974-2) Bilirubin, Direct (test code 1.1 mg/dL 0.1-0.5 H = 1967-7) Alkaline Phosphatase (test 329 U/L 40-150 H code = 6768-6) AST (test code = 192-8) 45 U/L 5-34 H ALT (test code = 1742-6) 19 U/L 6-55 JOHN (test code = JOHN) Shovel Log Loader Operator ID - BS Lab Interpretation (test Abnormal code = 24697-8) [facility] HospitalPHOSPHORUS2020-06-04 05:06:00 Test Item Value Reference Range Interpretation Comments PHOSPHORUS (BEAKER) (test code = 3.1 mg/dL 2.3-4.7 604) Shovel Log Loader Operator ID - [id number] 05:06:00 Test Item Value Reference Range Interpretation Comments MAGNESIUM (BEAKER) (test code = 1.9 mg/dL 1.6-2.6 627) Shovel Log Loader Operator ID - BSHEPATIC FUNCTION [id number] 05:06:00 Test Item Value Reference Range Interpretation Comments TOTAL PROTEIN (BEAKER) (test code = 7.5 gm/dL 6.0-8.3 770) ALBUMIN (BEAKER) (test code = 1145) 2.4 g/dL 3.5-5.0 L BILIRUBIN TOTAL (BEAKER) (test code 1.3 mg/dL 0.2-1.2 H = 377) BILIRUBIN DIRECT (BEAKER) (test 1.1 mg/dL 0.1-0.5 H code = 706) ALKALINE PHOSPHATASE (BEAKER) (test 329 U/L 40-150 H code = 346) AST (SGOT) (BEAKER) (test code = 45 U/L 5-34 H 353) ALT (SGPT) (BEAKER) (test code = 19 U/L 6-55 347) Shovel Log Loader Operator ID - BSCOMPREHENSIVE METABOLIC [id number] 05:06:00 Test Item Value Reference Range Interpretation Comments TOTAL PROTEIN 7.5 gm/dL 6.0-8.3 (BEAKER) (test code = 770) ALBUMIN (BEAKER) 2.4 g/dL 3.5-5.0 L (test code = 1145) ALKALINE PHOSPHATASE 329 U/L 40-150 H (BEAKER) (test code = 346) BILIRUBIN TOTAL 1.3 mg/dL 0.2-1.2 H (BEAKER) (test code = 377) SODIUM (BEAKER) (test 124 meq/L 136-145 L code = 381) POTASSIUM (BEAKER) 3.8 meq/L 3.5-5.1 (test code = 379) CHLORIDE (BEAKER) 99 meq/L 98-107 (test code = 382) CO2 (BEAKER) (test 22 meq/L 22-29 code = 355) BLOOD UREA NITROGEN 18 mg/dL 7-21 (BEAKER) (test code = 354) CREATININE (BEAKER) 0.82 mg/dL 0.57-1.25 (test code = 358) GLUCOSE RANDOM 99 mg/dL 70-105 (BEAKER) (test code = 652) CALCIUM (BEAKER) 8.2 mg/dL 8.4-10.2 L (test code = 697) AST (SGOT) (BEAKER) 45 U/L 5-34 H (test code = 353) ALT (SGPT) (BEAKER) 19 U/L 6-55 (test code = 347) EGFR (BEAKER) (test 108 ESTIMATE D GFR IS code = 1092) mL/min/1.73 sq NOT ACCURA TE m CREATININE CLEARANCE IN PREDICTING GLOMERULAR FILTRATION RATE . ESTIMATED GFR I S NOT APPLICABLE FOR DIALYSIS PATIEN TS. Shovel Log Loader Operator ID - BSCBC W/PLT COUNT & AUTO [id number] 05:02:00 Test Item Value Reference Range Interpretation Comments WHITE BLOOD CELL COUNT (BEAKER) 7.0 K/ L 3.5-10.5 (test code = 775) RED BLOOD CELL COUNT (BEAKER) 2.36 M/ L 4.63-6.08 L (test code = 761) HEMOGLOBIN (BEAKER) (test code = 7.7 GM/DL 13.7-17.5 L 410) HEMATOCRIT (BEAKER) (test code = 22.4 % 40.1-51.0 L 411) MEAN CORPUSCULAR VOLUME (BEAKER) 94.9 fL 79.0-92.2 H (test code = 753) MEAN CORPUSCULAR HEMOGLOBIN 32.6 pg 25.7-32.2 H (BEAKER) (test code = 751) MEAN CORPUSCULAR HEMOGLOBIN CONC 34.4 GM/DL 32.3-36.5 (BEAKER) (test code = 752) RED CELL DISTRIBUTION WIDTH 15.3 % 11.6-14.4 H (BEAKER) (test code = 412) PLATELET COUNT (BEAKER) (test 273 K/CU MM 150-450 code = 756) MEAN PLATELET VOLUME (BEAKER) 9.8 fL 9.4-12.4 (test code = 754) NUCLEATED RED BLOOD CELLS 0 /100 WBC 0-0 (BEAKER) (test code = 413) NEUTROPHILS RELATIVE PERCENT 71 % (BEAKER) (test code = 429) LYMPHOCYTES RELATIVE PERCENT 20 % (BEAKER) (test code = 430) MONOCYTES RELATIVE PERCENT 8 % (BEAKER) (test code = 431) EOSINOPHILS RELATIVE PERCENT 0 % (BEAKER) (test code = 432) BASOPHILS RELATIVE PERCENT 0 % (BEAKER) (test code = 437) NEUTROPHILS ABSOLUTE COUNT 4.98 K/ L 1.78-5.38 (BEAKER) (test code = 670) LYMPHOCYTES ABSOLUTE COUNT 1.39 K/ L 1.32-3.57 (BEAKER) (test code = 414) MONOCYTES ABSOLUTE COUNT (BEAKER) 0.55 K/ L 0.30-0.82 (test code = 415) EOSINOPHILS ABSOLUTE COUNT 0.03 K/ L 0.04-0.54 L (BEAKER) (test code = 416) BASOPHILS ABSOLUTE COUNT (BEAKER) 0.02 K/ L 0.01-0.08 (test code = 417) IMMATURE GRANULOCYTES-RELATIVE 1 % 0-1 PERCENT (BEAKER) (test code = 2801) CALCIUM, [id number] 04:37:00 Test Item Value Reference Range Interpretation Comments CALCIUM IONIZED (BEAKER) (test 1.12 mmol/L 1.12-1.27 code = 698) PH, BLOOD (BEAKER) (test code = 7.35 1810) HEPATOBILIARY [id number] 15:54:00FINAL REPORT PROCEDURE: HEPATOBILIARY SCAN CPT CODE: 90619 INDICATION: GENERAL INJURY, cholecystitis PROTOCOL: 8.4 mCi of Tc-99m mebrofenin was injected intravenously. Images of the upper abdomen were obtained for approximately 120 minutes after tracer injection. FINDINGS: Initial tracer uptake into the liver is heterogeneous. Subsequent tracerclearance from the liver proceeds normally. There is good visualization of the extrahepatic biliary duct, and the tracer appears appropriately in the small bowel. The gallbladder is not seen. IMPRESSION: Abnormal hepatobiliary scan. There is nonvisualization of the gallbladder normal gallbladder ejection fraction cannot be calculated. Acute cholecystitis cannot be excluded. Signed: Concepción Marin MDReport Verified Date/Time: 11/13/2019 15:54:11 Reading Location: [address] Reading Room [place] hepatobiliary (HIDA) [id number] 15:54:00Interface, External Ris In - 11/13/2019 3:56 PM CDTFINAL REPORT PROCEDURE: HEPATOBILIARY SCAN CPT CODE: 77789 INDICATION: GENERAL INJURY, cholecystitis PROTOCOL: 8.4 mCi of Tc-99m mebrofenin was injected intravenously. Images of the upper abdomen were obtained for approximately 120 minutes after tracer injection. FINDINGS: Initial tracer uptake into the liver is heterogeneous. Subsequent tracer clearance from the liver proceeds normally. There is good visualization of the extrahepatic biliary duct, and the tracer appears appropriately in thesmall bowel. The gallbladder is not seen. IMPRESSION: Abnormal hepatobiliary scan. There is nonvisualization of the gallbladder normal gallbladder ejection fraction cannot be calculated. Acute cholecystitis cannot be excluded. Signed: Concepción Marin MDReport Verified Date/Time: 11/13/2019 15:54:11 Reading Location: [address] [address] [place] Reading [facility] [id number] 11:38:00 Test Item Value Reference Range Interpretation Comments TOTAL PROTEIN 7.3 gm/dL 6.0-8.3 (BEAKER) (test code = 770) ALBUMIN (BEAKER) 2.4 g/dL 3.5-5.0 L (test code = 1145) ALKALINE PHOSPHATASE 325 U/L 40-150 H (BEAKER) (test code = 346) BILIRUBIN TOTAL 1.5 mg/dL 0.2-1.2 H (BEAKER) (test code = 377) SODIUM (BEAKER) (test 129 meq/L 136-145 L code = 381) POTASSIUM (BEAKER) 4.3 meq/L 3.5-5.1 (test code = 379) CHLORIDE (BEAKER) 102 meq/L 98-107 (test code = 382) CO2 (BEAKER) (test 24 meq/L 22-29 code = 355) BLOOD UREA NITROGEN 19 mg/dL 7-21 (BEAKER) (test code = 354) CREATININE (BEAKER) 0.82 mg/dL 0.57-1.25 (test code = 358) GLUCOSE RANDOM 81 mg/dL 70-105 (BEAKER) (test code = 652) CALCIUM (BEAKER) 8.0 mg/dL 8.4-10.2 L (test code = 697) AST (SGOT) (BEAKER) 30 U/L 5-34 (test code = 353) ALT (SGPT) (BEAKER) 19 U/L 6-55 (test code = 347) EGFR (BEAKER) (test 108 ESTIMATE D GFR IS code = 1092) mL/min/1.73 sq NOT ACCURA TE m CREATININE CLEARANCE IN PREDICTING GLOMERULAR FILTRATION RATE . ESTIMATED GFR I S NOT APPLICABLE FOR DIALYSIS PATIEN TS. Shovel Log Loader Operator ID - [facility] METABOLIC [id number] 06:56:00 Test Item Value Reference Range Interpretation Comments SODIUM (BEAKER) 127 meq/L 136-145 L (test code = 381) POTASSIUM (BEAKER) 4.9 meq/L 3.5-5.1 Specimen slightly (test code = 379) hemolyzed CHLORIDE (BEAKER) 103 meq/L 98-107 (test code = 382) CO2 (BEAKER) (test 20 meq/L 22-29 L code = 355) BLOOD UREA NITROGEN 17 mg/dL 7-21 (BEAKER) (test code = 354) CREATININE (BEAKER) 0.79 mg/dL 0.57-1.25 Specimen slightly (test code = 358) hemolyzed GLUCOSE RANDOM 93 mg/dL 70-105 (BEAKER) (test code = 652) CALCIUM (BEAKER) 7.7 mg/dL 8.4-10.2 L (test code = 697) EGFR (BEAKER) (test 113 mL/min/1.73 ESTIM ATED GFR IS code = 1092) sq m NOT ACCURATE CREATININE CLEARANCE IN PREDICTING GLOMERULAR FILTRATION RATE . ESTIMATED GFR I S NOT APPLICABLE FOR DIALYSIS PATIEN TS. Shovel Log Loader Operator ID - [facility] W/PLT COUNT & AUTO [id number] 06:47:00 Test Item Value Reference Range Interpretation Comments WHITE BLOOD CELL COUNT (BEAKER) 8.0 K/ L 3.5-10.5 (test code = 775) RED BLOOD CELL COUNT (BEAKER) 2.25 M/ L 4.63-6.08 L (test code = 761) HEMOGLOBIN (BEAKER) (test code = 7.1 GM/DL 13.7-17.5 L 410) HEMATOCRIT (BEAKER) (test code = 21.3 % 40.1-51.0 L 411) MEAN CORPUSCULAR VOLUME (BEAKER) 94.7 fL 79.0-92.2 H (test code = 753) MEAN CORPUSCULAR HEMOGLOBIN 31.6 pg 25.7-32.2 (BEAKER) (test code = 751) MEAN CORPUSCULAR HEMOGLOBIN CONC 33.3 GM/DL 32.3-36.5 (BEAKER) (test code = 752) RED CELL DISTRIBUTION WIDTH 15.3 % 11.6-14.4 H (BEAKER) (test code = 412) PLATELET COUNT (BEAKER) (test 221 K/CU MM 150-450 code = 756) MEAN PLATELET VOLUME (BEAKER) 9.5 fL 9.4-12.4 (test code = 754) NUCLEATED RED BLOOD CELLS 0 /100 WBC 0-0 (BEAKER) (test code = 413) NEUTROPHILS RELATIVE PERCENT 71 % (BEAKER) (test code = 429) LYMPHOCYTES RELATIVE PERCENT 17 % (BEAKER) (test code = 430) MONOCYTES RELATIVE PERCENT 11 % (BEAKER) (test code = 431) EOSINOPHILS RELATIVE PERCENT 0 % (BEAKER) (test code = 432) BASOPHILS RELATIVE PERCENT 0 % (BEAKER) (test code = 437) NEUTROPHILS ABSOLUTE COUNT 5.74 K/ L 1.78-5.38 H (BEAKER) (test code = 670) LYMPHOCYTES ABSOLUTE COUNT 1.34 K/ L 1.32-3.57 (BEAKER) (test code = 414) MONOCYTES ABSOLUTE COUNT (BEAKER) 0.90 K/ L 0.30-0.82 H (test code = 415) EOSINOPHILS ABSOLUTE COUNT 0.01 K/ L 0.04-0.54 L (BEAKER) (test code = 416) BASOPHILS ABSOLUTE COUNT (BEAKER) 0.02 K/ L 0.01-0.08 (test code = 417) IMMATURE GRANULOCYTES-RELATIVE 0 % 0-1 PERCENT (BEAKER) (test code = 2801) Urinalysis w/[id number] 04:28:00 Test Item Value Reference Range Interpretation Comments Color, UA (test code = Light Yellow 5778-6) Clarity, UA (test code = Clear 5767-9) Specific [place], UA 1.012 1.001-1.035 (test code = 5811-5) pH, UA (test code = 7.5 5.0-8.0 5803-2) Protein, UA (test code = Negative Negative 13727-9) Glucose, UA (test code = Negative Negative 365) Ketones, UA (test code = Negative Negative 2514-8) Bilirubin, UA (test code Negative Negative = 31249-5) Blood, UA (test code = Negative Negative 50678-3) Nitrite, UA (test code = Negative Negative 5802-4) Leukocytes, UA (test code Large Negative A = 5799-2) Urobilinogen, UA (test 0.2 mg/dL 0.2-1 code = 84158-9) RBC, UA (test code = 1 /HPF 35267-3) WBC, UA (test code = 6 /HPF 5821-4) Bacteria, UA (test code = Occasional 83596-3) Squam Epithel, UA (test 1 /HPF code = 94568-5) Amorphous Crystals (test Few code = 46258-4) Specimen Source (test code = 2795) JOHN (test code = JOHN) Shovel Log Loader Operator ID - [auto]Shovel Log Loader Operator ID - tech Lab Interpretation (test Abnormal code = 07240-6) [facility]/ [id number] 04:28:00 Test Item Value Reference Range Interpretation Comments COLOR (BEAKER) (test code = 470) Light Yellow CLARITY (BEAKER) (test code = Clear 469) SPECIFIC GRAVITY UA (BEAKER) 1.012 1.001-1.035 (test code = 468) PH UA (BEAKER) (test code = 467) 7.5 5.0-8.0 PROTEIN UA (BEAKER) (test code = Negative Negative 464) GLUCOSE UA (BEAKER) (test code = Negative Negative 365) KETONES UA (BEAKER) (test code = Negative Negative 371) BILIRUBIN UA (BEAKER) (test code Negative Negative = 462) BLOOD UA (BEAKER) (test code = Negative Negative 461) NITRITE UA (BEAKER) (test code = Negative Negative 465) LEUKOCYTE ESTERASE UA (BEAKER) Large Negative A (test code = 466) UROBILINOGEN UA (BEAKER) (test 0.2 mg/dL 0.2-1.0 code = 463) RBC UA (BEAKER) (test code = 1 /HPF 519) WBC UA (BEAKER) (test code = 6 /HPF 520) BACTERIA (BEAKER) (test code = Occasional 517) SQUAMOUS EPITHELIAL (BEAKER) 1 /HPF (test code = 516) AMORPHOUS CRYSTALS (BEAKER) Few (test code = 1584) SOURCE(BEAKER) (test code = 2795) Shovel Log Loader Operator ID - [auto]Shovel Log Loader Operator ID - techCT, [id number] 02:19:00FINAL REPORT CT, ABDOMEN \\T\\ PELVIS, WITH IV CONTRAST INDICATION: Abdominal pain, acute, nonlocalized COMPARISON: None TECHNIQUE:Post contrast abdomen and pelvis CT. Coronal andsagittal reformatted images obtained. DOSE REDUCTION: Dose modulation, iterative reconstruction, and/or weight-based adjustment of the mA/kV was utilized to reduce the radiation dose to as low as reasonably achievable. FINDINGS: Lower thorax: Minimal bilateral lower lobe atelectasis. No pleural effusion. Liver: Multiple hypodense hepatic lesions, somewhat ill-defined, concerning for metastatic disease. Intrauterine hepatic biliary ductal dilatation, particularly within the left hepatic lobe. Trace p neumobilia.Gallbladder and biliary tree: Gallbladder is nondistended. The bladder wall thickening. There is prominence of the common bile duct proximally which tapers the level of the pancreatic head.Pancreas: Enlargement of the pancreatic head with Ill-defined pancreatic head hypodense lesion measuring approximately 2.1 x 1.7 cm concerning for adenocarcinoma. The pancreatic tail is atrophic. Prominence of the pancreatic duct in the pancreatic tail.Spleen: No acute findingsAdrenal Glands: No acute findings.Kidneys and ureters: Multiple hypodense renal lesions which are too small to characterize andremain indeterminate. Hypodensity of the bilateral upper pole renal cortex may be related to streak artifact and renal cysts however correlate with urinalysis as pyelonephritis can have this appearance. Bilateral large exophytic renal cysts the largest of which the right lower pole measuring 7.5 cm. No hydronephrosis or hydroureter. No nephrolithiasis.Bladder and reproductive organs: The bladder is distended and thick-walled. Prostate gland is enlarged measuring up to 5.0 cm in the transverse dimension. Stomach and Duodenum: No significant findings.Small and large intestine: Normal calibers.Appendix: Normal. Major vascular structures: There is narrowing versus occlusion of the main portal vein near the confluence by the pancreatic head mass. Abdominal aorta is normal in caliber with atherosclerotic calcifications of the iliac arteries.Peritoneum and retroperitoneum: Trace free fluid in the pelvis. Mesenteric soft tissue stranding may be related to volume status. Enlarged peripancreatic lymph node measuring 1.4 cm in the short axis. No pneumoperitoneum. Skeleton: Multilevel degenerative changes visualized thoracolumbar spine. Few scattered lucent lesions within the pelvis, particularly the1.2 cm lesion in the right acetabulum are indeterminate however metastatic disease can have this appearance recommend further evaluation with MRI. Additional findings: None. IMPRESSION: Ill-defined 2.1 cm hypodense pancreatic head mass is most consistent with pancreatic adenocarcinoma with hepatic metastatic disease. There is associated narrowing versus short segment occlusion of the main portal vein and common bile duct. Thickening of the gallbladder wall with pericholecystic fluid may be reactivehowever if there is concern for acute cholecystitis recommend further evaluation with HIDA scan. Fewscattered lucent lesions within the pelvis, are indeterminate however metastatic disease can have this appearance recommend further evaluation with MRI. Hypodensity of the bilateral upper poles renal c ortex with thickening of the bladder wall. Findings could be artifactual related to chronic bladder outlet obstruction however correlate with urinalysis to exclude pyelonephritis and cystitis. Small hypodense renal lesions are not completely characterized on this examination. Recommend further evaluation with dedicated renal protocol cross-sectional imaging on a nonemergent basis. Signed: Princess Chaudhary MDReport Verified Date/Time: 11/13/2019 02:19:44 CT abdomen/pelvis with IV [id number] 02:19:00Interface, External Ris In - 11/13/2019 2:[address], ABDOMEN \\T\\ PELVIS, WITH IV CONTRAST INDICATION: Abdominal pain, acute, nonlocalized COMPARISON: None TECHNIQUE:Post contrast abdomen and pelvis CT. Coronal and sagittal reformatted images obtained. DOSE REDUCTION: Dose modulation, iterative reconstruction, and/or weight-based adjustment of the mA/kV was util ized to reduce the radiation dose to as low as reasonably achievable. FINDINGS: Lower thorax: Minimal bilateral lower lobe atelectasis. No pleural effusion. Liver: Multiple hypodense hepatic lesions, somewhat ill-defined, concerning for metastatic disease. Intrauterine hepatic biliary ductal dilatation, particularly within the left hepatic lobe. Trace pneumobilia.Gallbladder and biliary tree: Gallbladder is nondistended. The bladder wall thickening. There is prominence of the common bile duct proximally which tapers the level of the pancreatic head.Pancreas: Enlargement of the pancreatic head with Ill-defined pancreatic head hypodense lesion measuring approximately 2.1 x 1.7 cm concerning for adeno carcinoma. The pancreatic tail is atrophic. Prominence of the pancreatic duct in the pancreatic tail.Spleen: No acute findingsAdrenal Glands: No acute findings.Kidneys and ureters: Multiple hypodense renal lesions which are too small to characterize and remain indeterminate. Hypodensity of the bilateral upper pole renal cortex may be related to streak artifact and renal cysts however correlate with urinalysis as pyelonephritis can have this appearance. Bilateral large exophytic renal cysts the largest of which the right lower pole measuring 7.5 cm. No hydronephrosis or hydroureter. No nephrolithiasis.Bladder and reproductive organs: The bladder is distended and thick-walled. Prostate gland is enlarged measuring up to 5.0 cm in the transverse dimension. Stomach and Duodenum: No significant findings.Small and large intestine: Normal calibers.Appendix: Normal. Major vascular structures: There is narrowing versus occlusion of the main portal vein near the confluence by the pancreatic head mass. Abdominal aorta is normal in caliber with atherosclerotic calcifications of the iliac arteries.Peritoneum and retroperitoneum: Trace free fluid in the pelvis. Mesenteric soft tissue stranding may be related to volume status. Enlarged peripancreatic lymph node measuring 1.4 cm in the short axis. No pneumoperitoneum. Skeleton: Multilevel degenerative changes visualized thoracolumbar spine. Few scattered lucent lesions within the pelvis, particularly the 1.2 cm lesion in the right acetabulum are indeterminate however metastatic disease can have this appearance recommend further evaluation with MRI. Additional findings: None. IMPRESSION: Ill-defined 2.1 cm hypodense pancreatic head mass is most consistent with pancreatic adenocarcinoma with hepatic metastatic disease. There is associated narrowing versus short segment occlusion of the main portal vein and common bile duct. Thickening of the gallbladder wall with pericholecystic fluid may be reactive however if there is concern for acute cholecystitis recommend further evaluation with HIDA scan. Few scattered lucent lesions within the pelvis, are indeterminate however metastatic disease can have this appearance recommend further evaluation with MR I. Hypodensity of the bilateral upper poles renal cortex with thickening of the bladder wall. Findings could be artifactual related to chronic bladder outlet obstruction however correlate with urinalysis to exclude pyelonephritis and cystitis. Small hypodense renal lesions are not completely characterized on this examination. Recommend further evaluation with dedicated renal protocol cross-sectional imaging on a nonemergent basis. Signed: Princess Chaudhary MDReport Verified Date/Time: 11/13/2019 02:19:44 [facility] [id number] 00:27:00 Test Item Value Reference Range Interpretation Comments Lipase (test code = 95 U/L 8-78 H 3040-3) JOHN (test code = JOHN) Shovel Log Loader Operator ID - SACHA L Lab Interpretation (test Abnormal code = 86406-7) [facility] Test Item Value Reference Range Interpretation Comments LIPASE (BEAKER) (test code = 749) 95 U/L 8-78 H Shovel Log Loader Operator ID - SACHA LBASIC METABOLIC [id number] 00:27:00 Test Item Value Reference Range Interpretation Comments SODIUM (BEAKER) 125 meq/L 136-145 L (test code = 381) POTASSIUM (BEAKER) 4.6 meq/L 3.5-5.1 (test code = 379) CHLORIDE (BEAKER) 96 meq/L 98-107 L (test code = 382) CO2 (BEAKER) (test 22 meq/L 22-29 code = 355) BLOOD UREA NITROGEN 19 mg/dL 7-21 (BEAKER) (test code = 354) CREATININE (BEAKER) 0.93 mg/dL 0.57-1.25 (test code = 358) GLUCOSE RANDOM 109 mg/dL 70-105 H (BEAKER) (test code = 652) CALCIUM (BEAKER) 9.0 mg/dL 8.4-10.2 (test code = 697) EGFR (BEAKER) (test 94 mL/min/1.73 ESTIMA MARCIN GFR IS code = 1092) sq m NOT ACCURATE CREATININE CLEARANCE IN PREDICTING GLOMERULAR FILTRATION RATE . ESTIMATED GFR I S NOT APPLICABLE FOR DIALYSIS PATIEN TS. Shovel Log Loader Operator ID - SACHA LPT/[id number] 00:21:00 Test Item Value Reference Range Interpretation Comments Protime (test code = 15.9 11.9- 14.2 H 5902-2) seconds INR (test code = 1.3 <=5.9 6301-6) PTT (test code = 35.0 22.5- 36.0 12595-9) seconds JOHN (test code = JOHN) Effective 11/07/2018: PT Reference Range ChangeNew: 11.9-14.2 Previous: 11.7-14.7 RECOMMENDED COUMADIN/WARFARIN INR THERAPY RANGESSTANDARD DOSE: 2.0-3.0 Includes: PROPHYLAXIS for venous thrombosis, systemic embolization; TREATMENT for venous thrombosis and/or pulmonary embolus.HIGH RISK: Target INR is 2.5-3.5 for patients wiht mechanical heart valves. Lab Interpretation Abnormal (test code = 58242-7) [facility] HospitalPT/[id number] 00:21:00 Test Item Value Reference Range Interpretation Comments PROTIME (BEAKER) (test code = 15.9 seconds 11.9-14.2 H 759) INR (BEAKER) (test code = 370) 1.3 <=5.9 PARTIAL THROMBOPLASTIN TIME 35.0 seconds 22.5-36.0 (BEAKER) (test code = 760) Effective 11/07/2018: PT Reference Range ChangeNew: 11.9-14.2 Previous: 11.7- 14.7RECOMMENDED COUMADIN/WARFARIN INR THERAPY RANGESSTANDARD DOSE: 2.0-3.0 Includes: PROPHYLAXIS for venous thrombosis, systemic embolization; TREATMENT for venous thrombosis and/or pulmonary embolus.HIGH RISK: Target INR is2.5-3.5 for patients wiht mechanical heart valves.CBC W/PLT COUNT & AUTO [id number] 00:10:00 Test Item Value Reference Range Interpretation Comments WHITE BLOOD CELL COUNT (BEAKER) 11.2 K/ L 3.5-10.5 H (test code = 775) RED BLOOD CELL COUNT (BEAKER) 2.85 M/ L 4.63-6.08 L (test code = 761) HEMOGLOBIN (BEAKER) (test code = 9.0 GM/DL 13.7-17.5 L 410) HEMATOCRIT (BEAKER) (test code = 26.7 % 40.1-51.0 L 411) MEAN CORPUSCULAR VOLUME (BEAKER) 93.7 fL 79.0-92.2 H (test code = 753) MEAN CORPUSCULAR HEMOGLOBIN 31.6 pg 25.7-32.2 (BEAKER) (test code = 751) MEAN CORPUSCULAR HEMOGLOBIN CONC 33.7 GM/DL 32.3-36.5 (BEAKER) (test code = 752) RED CELL DISTRIBUTION WIDTH 14.9 % 11.6-14.4 H (BEAKER) (test code = 412) PLATELET COUNT (BEAKER) (test 326 K/CU MM 150-450 code = 756) MEAN PLATELET VOLUME (BEAKER) 9.8 fL 9.4-12.4 (test code = 754) NUCLEATED RED BLOOD CELLS 0 /100 WBC 0-0 (BEAKER) (test code = 413) NEUTROPHILS RELATIVE PERCENT 78 % (BEAKER) (test code = 429) LYMPHOCYTES RELATIVE PERCENT 12 % (BEAKER) (test code = 430) MONOCYTES RELATIVE PERCENT 9 % (BEAKER) (test code = 431) EOSINOPHILS RELATIVE PERCENT 0 % (BEAKER) (test code = 432) BASOPHILS RELATIVE PERCENT 0 % (BEAKER) (test code = 437) NEUTROPHILS ABSOLUTE COUNT 8.78 K/ L 1.78-5.38 H (BEAKER) (test code = 670) LYMPHOCYTES ABSOLUTE COUNT 1.33 K/ L 1.32-3.57 (BEAKER) (test code = 414) MONOCYTES ABSOLUTE COUNT (BEAKER) 0.99 K/ L 0.30-0.82 H (test code = 415) EOSINOPHILS ABSOLUTE COUNT 0.01 K/ L 0.04-0.54 L (BEAKER) (test code = 416) BASOPHILS ABSOLUTE COUNT (BEAKER) 0.02 K/ L 0.01-0.08 (test code = 417) IMMATURE GRANULOCYTES-RELATIVE 1 % 0-1 PERCENT (BEAKER) (test code = 2801) Blood [id number] 20:00:00 Test Item Value Reference Range Interpretation Comments Result (test code = No growth in 5 days 6463-4) [facility] HospitalBLOOD [id number] 20:00:00 Test Item Value Reference Range Interpretation Comments CULTURE (BEAKER) (test No growth in 5 days code = 1095) BLOOD [id number] 20:00:00 Test Item Value Reference Range Interpretation Comments CULTURE (BEAKER) (test No growth in 5 days code = 1095) [id number] 07:06:00 Test Item Value Reference Range Interpretation Comments MAGNESIUM (BEAKER) (test code = 1.4 mg/dL 1.6-2.6 L 627) COMPREHENSIVE METABOLIC [id number] 07:06:00 Test Item Value Reference Range Interpretation Comments TOTAL PROTEIN 6.1 gm/dL 6.0-8.3 (BEAKER) (test code = 770) ALBUMIN (BEAKER) 2.1 g/dL 3.5-5.0 L (test code = 1145) ALKALINE PHOSPHATASE 326 U/L 40-150 H (BEAKER) (test code = 346) BILIRUBIN TOTAL 7.2 mg/dL 0.2-1.2 H (BEAKER) (test code = 377) SODIUM (BEAKER) (test 130 meq/L 136-145 L code = 381) POTASSIUM (BEAKER) 4.1 meq/L 3.5-5.1 (test code = 379) CHLORIDE (BEAKER) 105 meq/L 98-107 (test code = 382) CO2 (BEAKER) (test 20 meq/L 22-29 L code = 355) BLOOD UREA NITROGEN 9 mg/dL 7-21 (BEAKER) (test code = 354) CREATININE (BEAKER) 0.80 mg/dL 0.57-1.25 (test code = 358) GLUCOSE RANDOM 79 mg/dL 70-105 (BEAKER) (test code = 652) CALCIUM (BEAKER) 8.1 mg/dL 8.4-10.2 L (test code = 697) AST (SGOT) (BEAKER) 73 U/L 5-34 H (test code = 353) ALT (SGPT) (BEAKER) 48 U/L 6-55 (test code = 347) EGFR (BEAKER) (test 111 ESTIMATE D GFR IS code = 1092) mL/min/1.73 sq NOT ACCURA TE m CREATININE CLEARANCE IN PREDICTING GLOMERULAR FILTRATION RATE . ESTIMATED GFR I S NOT APPLICABLE FOR DIALYSIS PATIEN TS. Specimen moderately ictericCBC W/PLT COUNT & AUTO [id number] 05:50:00 Test Item Value Reference Range Interpretation Comments WHITE BLOOD CELL COUNT (BEAKER) 9.8 K/ L 3.5-10.5 (test code = 775) RED BLOOD CELL COUNT (BEAKER) 2.77 M/ L 4.63-6.08 L (test code = 761) HEMOGLOBIN (BEAKER) (test code = 9.2 GM/DL 13.7-17.5 L 410) HEMATOCRIT (BEAKER) (test code = 25.1 % 40.1-51.0 L 411) MEAN CORPUSCULAR VOLUME (BEAKER) 90.6 fL 79.0-92.2 (test code = 753) MEAN CORPUSCULAR HEMOGLOBIN 33.2 pg 25.7-32.2 H (BEAKER) (test code = 751) MEAN CORPUSCULAR HEMOGLOBIN CONC 36.7 GM/DL 32.3-36.5 H (BEAKER) (test code = 752) RED CELL DISTRIBUTION WIDTH 15.9 % 11.6-14.4 H (BEAKER) (test code = 412) PLATELET COUNT (BEAKER) (test 374 K/CU MM 150-450 code = 756) MEAN PLATELET VOLUME (BEAKER) 9.4 fL 9.4-12.4 (test code = 754) NUCLEATED RED BLOOD CELLS 0 /100 WBC 0-0 (BEAKER) (test code = 413) NEUTROPHILS RELATIVE PERCENT 78 % (BEAKER) (test code = 429) LYMPHOCYTES RELATIVE PERCENT 14 % (BEAKER) (test code = 430) MONOCYTES RELATIVE PERCENT 6 % (BEAKER) (test code = 431) EOSINOPHILS RELATIVE PERCENT 1 % (BEAKER) (test code = 432) BASOPHILS RELATIVE PERCENT 0 % (BEAKER) (test code = 437) NEUTROPHILS ABSOLUTE COUNT 7.66 K/ L 1.78-5.38 H (BEAKER) (test code = 670) LYMPHOCYTES ABSOLUTE COUNT 1.36 K/ L 1.32-3.57 (BEAKER) (test code = 414) MONOCYTES ABSOLUTE COUNT (BEAKER) 0.54 K/ L 0.30-0.82 (test code = 415) EOSINOPHILS ABSOLUTE COUNT 0.10 K/ L 0.04-0.54 (BEAKER) (test code = 416) BASOPHILS ABSOLUTE COUNT (BEAKER) 0.04 K/ L 0.01-0.08 (test code = 417) IMMATURE GRANULOCYTES-RELATIVE 1 % 0-1 PERCENT (BEAKER) (test code = 2801) [id number] 05:51:00 Test Item Value Reference Range Interpretation Comments MAGNESIUM (BEAKER) 1.6 mg/dL 1.6-2.6 Specimen slightly (test code = 627) hemolyzed COMPREHENSIVE METABOLIC [id number] 05:51:00 Test Item Value Reference Range Interpretation Comments TOTAL PROTEIN 5.7 gm/dL 6.0-8.3 L Specimen sligh tly (BEAKER) (test code = hemoly zed 770) ALBUMIN (BEAKER) 1.9 g/dL 3.5-5.0 L Specimen sl ightly (test code = 1145) hemolyzed ALKALINE PHOSPHATASE 329 U/L 40-150 H (BEAKER) (test code = 346) BILIRUBIN TOTAL 6.8 mg/dL 0.2-1.2 H Specimen sli ghtly (BEAKER) (test code = hemoly zed 377) SODIUM (BEAKER) (test 130 meq/L 136-145 L code = 381) POTASSIUM (BEAKER) 4.4 meq/L 3.5-5.1 Specimen slightly (test code = 379) hemolyzed CHLORIDE (BEAKER) 107 meq/L 98-107 (test code = 382) CO2 (BEAKER) (test 18 meq/L 22-29 L code = 355) BLOOD UREA NITROGEN 11 mg/dL 7-21 (BEAKER) (test code = 354) CREATININE (BEAKER) 0.80 mg/dL 0.57-1.25 Specimen slightly (test code = 358) hemolyzed GLUCOSE RANDOM 94 mg/dL 70-105 (BEAKER) (test code = 652) CALCIUM (BEAKER) 7.9 mg/dL 8.4-10.2 L (test code = 697) AST (SGOT) (BEAKER) 84 U/L 5-34 H Specimen slightly (test code = 353) hemolyzed ALT (SGPT) (BEAKER) 52 U/L 6-55 Specimen slightly (test code = 347) hemolyzed EGFR (BEAKER) (test 111 ESTIMATE D GFR IS code = 1092) mL/min/1.73 sq NOT ACCURA TE m CREATININE CLEARANCE IN PREDICTING GLOMERULAR FILTRATION RATE . ESTIMATED GFR I S NOT APPLICABLE FOR DIALYSIS PATIEN TS. Specimen moderately ictericCBC W/PLT COUNT & AUTO [id number] 05:12:00 Test Item Value Reference Range Interpretation Comments WHITE BLOOD CELL COUNT (BEAKER) 10.5 K/ L 3.5-10.5 (test code = 775) RED BLOOD CELL COUNT (BEAKER) 2.68 M/ L 4.63-6.08 L (test code = 761) HEMOGLOBIN (BEAKER) (test code = 8.7 GM/DL 13.7-17.5 L 410) HEMATOCRIT (BEAKER) (test code = 24.3 % 40.1-51.0 L 411) MEAN CORPUSCULAR VOLUME (BEAKER) 90.7 fL 79.0-92.2 (test code = 753) MEAN CORPUSCULAR HEMOGLOBIN 32.5 pg 25.7-32.2 H (BEAKER) (test code = 751) MEAN CORPUSCULAR HEMOGLOBIN CONC 35.8 GM/DL 32.3-36.5 (BEAKER) (test code = 752) RED CELL DISTRIBUTION WIDTH 15.9 % 11.6-14.4 H (BEAKER) (test code = 412) PLATELET COUNT (BEAKER) (test 357 K/CU MM 150-450 code = 756) MEAN PLATELET VOLUME (BEAKER) 9.5 fL 9.4-12.4 (test code = 754) NUCLEATED RED BLOOD CELLS 0 /100 WBC 0-0 (BEAKER) (test code = 413) NEUTROPHILS RELATIVE PERCENT 74 % (BEAKER) (test code = 429) LYMPHOCYTES RELATIVE PERCENT 15 % (BEAKER) (test code = 430) MONOCYTES RELATIVE PERCENT 6 % (BEAKER) (test code = 431) EOSINOPHILS RELATIVE PERCENT 2 % (BEAKER) (test code = 432) BASOPHILS RELATIVE PERCENT 0 % (BEAKER) (test code = 437) NEUTROPHILS ABSOLUTE COUNT 7.75 K/ L 1.78-5.38 H (BEAKER) (test code = 670) LYMPHOCYTES ABSOLUTE COUNT 1.61 K/ L 1.32-3.57 (BEAKER) (test code = 414) MONOCYTES ABSOLUTE COUNT (BEAKER) 0.65 K/ L 0.30-0.82 (test code = 415) EOSINOPHILS ABSOLUTE COUNT 0.20 K/ L 0.04-0.54 (BEAKER) (test code = 416) BASOPHILS ABSOLUTE COUNT (BEAKER) 0.04 K/ L 0.01-0.08 (test code = 417) IMMATURE GRANULOCYTES-RELATIVE 2 % 0-1 H PERCENT (BEAKER) (test code = 2801) Manual [id number] 12:30:00 Test Item Value Reference Range Interpretation Comments % Neutros (test code = 86 % 2816) % Lymphs (test code = 9 % 2817) % Monos (test code = 2818) 1 % % Eos (test code = 2819) 2 % % Metamyelo (test code = 2 % 0-0 H 2821) # Neutros (test code = 9.20 K/ul 1.78-5.38 H 2830) # Lymphs (test code = 0.96 K/ul 1.32-3.57 L 2831) # Monos (test code = 2832) 0.11 K/uL 0.3-0.82 L # Eos (test code = 2834) 0.21 K/uL 0.04-0.54 # Metamyelo (test code = 0.21 K/uL 0-0 H 2836) Total Counted (test code = 100 1351) Smudge Cells (test code = Present 1371) Giant Platelet (test code Present = 313) Hypochromia (test code = 1+ few 963) Anisocytosis (test code = 3+ many 961) Macrocytes (test code = 3+ many 964) Poikilocytes (test code = 1+ few 966) [place] Cells (test code = 1+ few 474) Artifact (test code = Present 3432) Platelet Conc (test code = Adequate 3438) JOHN (test code = JOHN) Received comment: User comments: Slide comments: Lab Interpretation (test Abnormal code = 10891-2) [facility] W/PLT COUNT & AUTO [id number] 12:30:00 Test Item Value Reference Range Interpretation Comments WHITE BLOOD CELL COUNT (BEAKER) 10.7 K/ L 3.5-10.5 H (test code = 775) RED BLOOD CELL COUNT (BEAKER) 2.75 M/ L 4.63-6.08 L (test code = 761) HEMOGLOBIN (BEAKER) (test code = 9.1 GM/DL 13.7-17.5 L 410) HEMATOCRIT (BEAKER) (test code = 25.0 % 40.1-51.0 L 411) MEAN CORPUSCULAR VOLUME (BEAKER) 90.9 fL 79.0-92.2 (test code = 753) MEAN CORPUSCULAR HEMOGLOBIN 33.1 pg 25.7-32.2 H (BEAKER) (test code = 751) MEAN CORPUSCULAR HEMOGLOBIN CONC 36.4 GM/DL 32.3-36.5 (BEAKER) (test code = 752) RED CELL DISTRIBUTION WIDTH 15.8 % 11.6-14.4 H (BEAKER) (test code = 412) PLATELET COUNT (BEAKER) (test 375 K/CU MM 150-450 code = 756) MEAN PLATELET VOLUME (BEAKER) 9.7 fL 9.4-12.4 (test code = 754) NUCLEATED RED BLOOD CELLS 0 /100 WBC 0-0 (BEAKER) (test code = 413) (CELLAVISION MANUAL DIFF)2019-03-11 12:30:00 Test Item Value Reference Range Interpretation Comments NEUTROPHILS - REL 86 % (CELLAVISION)(BEAKER) (test code = 2816) LYMPHOCYTES - REL 9 % (CELLAVISION)(BEAKER) (test code = 2817) MONOCYTES - REL 1 % (CELLAVISION)(BEAKER) (test code = 2818) EOSINOPHILS - REL 2 % (CELLAVISION)(BEAKER) (test code = 2819) METAMYELOCYTES - REL 2 % 0-0 H (CELLAVISION)(BEAKER) (test code = 2821) NEUTROPHILS - ABS 9.20 K/ul 1.78-5.38 H (CELLAVISION)(BEAKER) (test code = 2830) LYMPHOCYTES - ABS 0.96 K/ul 1.32-3.57 L (CELLAVISION)(BEAKER) (test code = 2831) MONOCYTES - ABS 0.11 K/uL 0.30-0.82 L (CELLAVISION)(BEAKER) (test code = 2832) EOSINOPHILS - ABS 0.21 K/uL 0.04-0.54 (CELLAVISION)(BEAKER) (test code = 2834) METAMYELOCYTES - ABS 0.21 K/uL 0.00-0.00 H (CELLAVISION)(BEAKER) (test code = 2836) TOTAL COUNTED (BEAKER) (test code = 100 1351) SMUDGE CELLS (BEAKER) (test code = Present 1371) GIANT PLATELETS (BEAKER) (test code Present = 313) HYPOCHROMIA (BEAKER) (test code = 1+ few 963) ANISOCYTOSIS (BEAKER) (test code = 3+ many 961) MACROCYTES (BEAKER) (test code = 3+ many 964) POIKILOCYTES (BEAKER) (test code = 1+ few 966) SOFIYA CELLS (BEAKER) (test code = 1+ few 474) ARTIFACT (CELLAVISION)(BEAKER) Present (test code = 3432) PLATELET CONCENTRATION Adequate (CELLAVISION)(BEAKER) (test code = 7398) Received comment: User comments: Slide comments:COMPREHENSIVE METABOLIC PANEL 2019-03-11 06:03:00 Test Item Value Reference Range Interpretation Comments TOTAL PROTEIN 5.7 gm/dL 6.0-8.3 L (BEAKER) (test code = 770) ALBUMIN (BEAKER) 1.9 g/dL 3.5-5.0 L (test code = 1145) ALKALINE PHOSPHATASE 352 U/L 40-150 H (BEAKER) (test code = 346) BILIRUBIN TOTAL 9.2 mg/dL 0.2-1.2 H (BEAKER) (test code = 377) SODIUM (BEAKER) (test 130 meq/L 136-145 L code = 381) POTASSIUM (BEAKER) 4.0 meq/L 3.5-5.1 (test code = 379) CHLORIDE (BEAKER) 108 meq/L 98-107 H (test code = 382) CO2 (BEAKER) (test 18 meq/L 22-29 L code = 355) BLOOD UREA NITROGEN 14 mg/dL 7-21 (BEAKER) (test code = 354) CREATININE (BEAKER) 0.88 mg/dL 0.57-1.25 (test code = 358) GLUCOSE RANDOM 72 mg/dL 70-105 (BEAKER) (test code = 652) CALCIUM (BEAKER) 7.8 mg/dL 8.4-10.2 L (test code = 697) AST (SGOT) (BEAKER) 84 U/L 5-34 H (test code = 353) ALT (SGPT) (BEAKER) 54 U/L 6-55 (test code = 347) EGFR (BEAKER) (test 100 ESTIMATE D GFR IS code = 1092) mL/min/1.73 sq NOT ACCURA TE m CREATININE CLEARANCE IN PREDICTING GLOMERULAR FILTRATION RATE . ESTIMATED GFR I S NOT APPLICABLE FOR DIALYSIS PATIEN TS. Specimen moderately [id number] 06:01:00 Test Item Value Reference Range Interpretation Comments MAGNESIUM (BEAKER) (test code = 1.8 mg/dL 1.6-2.6 627) [id number] 19:37:00 Test Item Value Reference Range Interpretation Comments MAGNESIUM (BEAKER) (test code = 2.0 mg/dL 1.6-2.6 627) [place], [id number] 13:56:00INTRA OP IMAGINGReason for exam:->CHOLANGITISFINAL REPORT ERCP HISTORY: Cholangitis COMPARISON: ERCP of 01/06/2019 FINDINGS: C-arm fluoroscopy was provided in the endoscopy. No radiologist was present. Fluoroscopy time was reported as 50.2 seconds. 5 images were submitted for interpretation. The images show sequential cannulation of the common bile duct with retrograde contrast injection, opacifying dilated common bile duct and intrahepatic bile ducts. There was subsequent placement of a common bile duct stent. Signed: Rosario Martienz MDReport Verified Date/Time: 03/10/2019 13:56:04 Reading Location: [facility] C013X [facility] Consult Reading Room CBC W/PLT COUNT & AUTO [id number] 08:00:00 Test Item Value Reference Range Interpretation Comments WHITE BLOOD CELL COUNT (BEAKER) 11.5 K/ L 3.5-10.5 H (test code = 775) RED BLOOD CELL COUNT (BEAKER) 2.67 M/ L 4.63-6.08 L (test code = 761) HEMOGLOBIN (BEAKER) (test code = 8.9 GM/DL 13.7-17.5 L 410) HEMATOCRIT (BEAKER) (test code = 23.7 % 40.1-51.0 L 411) MEAN CORPUSCULAR VOLUME (BEAKER) 88.8 fL 79.0-92.2 (test code = 753) MEAN CORPUSCULAR HEMOGLOBIN 33.3 pg 25.7-32.2 H (BEAKER) (test code = 751) MEAN CORPUSCULAR HEMOGLOBIN CONC 37.6 GM/DL 32.3-36.5 H (BEAKER) (test code = 752) RED CELL DISTRIBUTION WIDTH 15.2 % 11.6-14.4 H (BEAKER) (test code = 412) PLATELET COUNT (BEAKER) (test 362 K/CU MM 150-450 code = 756) MEAN PLATELET VOLUME (BEAKER) 10.1 fL 9.4-12.4 (test code = 754) NUCLEATED RED BLOOD CELLS 0 /100 WBC 0-0 (BEAKER) (test code = 413) (CELLAVISION MANUAL DIFF)2019-03-10 08:00:00 Test Item Value Reference Range Interpretation Comments NEUTROPHILS - REL 83 % (CELLAVISION)(BEAKER) (test code = 2816) LYMPHOCYTES - REL 10 % (CELLAVISION)(BEAKER) (test code = 2817) MONOCYTES - REL 5 % (CELLAVISION)(BEAKER) (test code = 2818) EOSINOPHILS - REL 1 % (CELLAVISION)(BEAKER) (test code = 2819) ATYPICAL LYMPHOCYTES - REL 1 % 0-0 H (CELLAVISION)(BEAKER) (test code = 2829) NEUTROPHILS - ABS 9.55 K/ul 1.78-5.38 H (CELLAVISION)(BEAKER) (test code = 2830) LYMPHOCYTES - ABS 1.15 K/ul 1.32-3.57 L (CELLAVISION)(BEAKER) (test code = 2831) MONOCYTES - ABS 0.58 K/uL 0.30-0.82 (CELLAVISION)(BEAKER) (test code = 2832) EOSINOPHILS - ABS 0.12 K/uL 0.04-0.54 (CELLAVISION)(BEAKER) (test code = 2834) ATYPICAL LYMPHOCYTES - ABS 0.12 K/uL 0.00-0.00 H (CELLAVISION)(BEAKER) (test code = 2858) TOTAL COUNTED (BEAKER) (test code 100 = 1351) WBC MORPHOLOGY (BEAKER) (test Normal code = 487) PLT MORPHOLOGY (BEAKER) (test Normal code = 486) ANISOCYTOSIS (BEAKER) (test code 1+ few = 961) MACROCYTES (BEAKER) (test code = 1+ few 964) POIKILOCYTES (BEAKER) (test code 2+ moderate = 966) TARGET CELLS (BEAKER) (test code 1+ few = 480) SOFIYA CELLS (BEAKER) (test code = 1+ few 474) ARTIFACT (CELLAVISION)(BEAKER) Present (test code = 3432) PLATELET CONCENTRATION Adequate (CELLAVISION)(BEAKER) (test code = 3438) Received comment: User comments: Slide comments:Prothrombin time/[id number] 07:51:00 Test Item Value Reference Range Interpretation Comments Protime (test code = 15.9 11.9- 14.2 H 5902-2) seconds INR (test code = 1.3 <=5.9 6301-6) JOHN (test code = JOHN) Effective 11/07/2018: PT Reference Range ChangeNew: 11.9-14.2 Previous: 11.7-14.7 RECOMMENDED COUMADIN/WARFARIN INR THERAPY RANGESSTANDARD DOSE: 2.0-3.0 Includes: PROPHYLAXIS for venous thrombosis, systemic embolization; TREATMENT for venous thrombosis and/or pulmonary embolus.HIGH RISK: Target INR is 2.5-3.5 for patients wiht mechanical heart valves. Lab Interpretation Abnormal (test code = 58968-1) [facility] HospitalPROTHROMBIN [facility]/[id number] 07:51:00 Test Item Value Reference Range Interpretation Comments PROTIME (BEAKER) (test code = 15.9 seconds 11.9-14.2 H 759) INR (BEAKER) (test code = 370) 1.3 <=5.9 Effective 11/07/2018: PT Reference Range ChangeNew: 11.9-14.2 Previous: 11.7- 14.7RECOMMENDED COUMADIN/WARFARIN INR THERAPY RANGESSTANDARD DOSE: 2.0-3.0 Includes: PROPHYLAXIS for venous thrombosis, systemic embolization; TREATMENT for venous thrombosis and/or pulmonary embolus.HIGH RISK: Target INR is2.5-3.5 for patients wiht mechanical heart valves.COMPREHENSIVE METABOLIC PANEL 2019-03-10 06:42:00 Test Item Value Reference Range Interpretation Comments TOTAL PROTEIN 5.6 gm/dL 6.0-8.3 L (BEAKER) (test code = 770) ALBUMIN (BEAKER) 1.9 g/dL 3.5-5.0 L (test code = 1145) ALKALINE PHOSPHATASE 396 U/L 40-150 H (BEAKER) (test code = 346) BILIRUBIN TOTAL 11.2 mg/dL 0.2-1.2 H (BEAKER) (test code = 377) SODIUM (BEAKER) (test 129 meq/L 136-145 L code = 381) POTASSIUM (BEAKER) 4.2 meq/L 3.5-5.1 (test code = 379) CHLORIDE (BEAKER) 108 meq/L 98-107 H (test code = 382) CO2 (BEAKER) (test 17 meq/L 22-29 L code = 355) BLOOD UREA NITROGEN 14 mg/dL 7-21 (BEAKER) (test code = 354) CREATININE (BEAKER) 0.88 mg/dL 0.57-1.25 (test code = 358) GLUCOSE RANDOM 74 mg/dL 70-105 (BEAKER) (test code = 652) CALCIUM (BEAKER) 7.6 mg/dL 8.4-10.2 L (test code = 697) AST (SGOT) (BEAKER) 106 U/L 5-34 H (test code = 353) ALT (SGPT) (BEAKER) 60 U/L 6-55 H (test code = 347) EGFR (BEAKER) (test 100 ESTIMATE D GFR IS code = 1092) mL/min/1.73 sq NOT ACCURA TE m CREATININE CLEARANCE IN PREDICTING GLOMERULAR FILTRATION RATE . ESTIMATED GFR I S NOT APPLICABLE FOR DIALYSIS PATIEN TS. Specimen markedly [id number] 18:20:00 Test Item Value Reference Range Interpretation Comments Potassium (test code = 2823-3) 3.8 meq/L 3.5-5.1 Lab Interpretation (test code = Normal 27310-6) [facility] Test Item Value Reference Range Interpretation Comments POTASSIUM (BEAKER) (test code = 3.8 meq/L 3.5-5.1 379) ECG 12 [id number] 16:47:54Interface, External Ris In - 03/09/2019 4:48 PM CDTVentricular Rate 89 BPMAtrial Rate 89 BPMP-R Interval 142 msQRS Duration 86 msQ-T Interval 354 msQTC Calculation(Bazett) 430 msP [place] 43 degreesR [place] -26 degreesT [place] 13 degreesSinus rhythm with occasional Premature ventricular complexesOtherwise normal ECGNo previous ECGs availableConfirmed by MD LINDA, MOISÉS Valdez ([id number]) on 03/09/2019 4:47:49 [facility] [id number] 09:41:00 Test Item Value Reference Range Interpretation Comments WHITE BLOOD CELL COUNT (BEAKER) 12.5 K/ L 3.5-10.5 H (test code = 775) RED BLOOD CELL COUNT (BEAKER) 2.55 M/ L 4.63-6.08 L (test code = 761) HEMOGLOBIN (BEAKER) (test code = 8.2 GM/DL 13.7-17.5 L 410) HEMATOCRIT (BEAKER) (test code = 22.8 % 40.1-51.0 L 411) MEAN CORPUSCULAR VOLUME (BEAKER) 89.4 fL 79.0-92.2 (test code = 753) MEAN CORPUSCULAR HEMOGLOBIN 32.2 pg 25.7-32.2 (BEAKER) (test code = 751) MEAN CORPUSCULAR HEMOGLOBIN CONC 36.0 GM/DL 32.3-36.5 (BEAKER) (test code = 752) RED CELL DISTRIBUTION WIDTH 15.0 % 11.6-14.4 H (BEAKER) (test code = 412) PLATELET COUNT (BEAKER) (test 330 K/CU MM 150-450 code = 756) MEAN PLATELET VOLUME (BEAKER) 9.9 fL 9.4-12.4 (test code = 754) NUCLEATED RED BLOOD CELLS 0 /100 WBC 0-0 (BEAKER) (test code = 413) (CELLAVISION MANUAL DIFF)2019-03-09 09:41:00 Test Item Value Reference Range Interpretation Comments NEUTROPHILS - REL 82 % (CELLAVISION)(BEAKER) (test code = 2816) LYMPHOCYTES - REL 7 % (CELLAVISION)(BEAKER) (test code = 2817) MONOCYTES - REL 6 % (CELLAVISION)(BEAKER) (test code = 2818) BASOPHILS - REL 2 % (CELLAVISION)(BEAKER) (test code = 2820) BANDS - REL (CELLAVISION)(BEAKER) 1 % 0-10 (test code = 2826) ATYPICAL LYMPHOCYTES - REL 1 % 0-0 H (CELLAVISION)(BEAKER) (test code = 2829) NEUTROPHILS - ABS 10.25 K/ul 1.78-5.38 H (CELLAVISION)(BEAKER) (test code = 2830) LYMPHOCYTES - ABS 0.88 K/ul 1.32-3.57 L (CELLAVISION)(BEAKER) (test code = 2831) MONOCYTES - ABS 0.75 K/uL 0.30-0.82 (CELLAVISION)(BEAKER) (test code = 2832) BASOPHILS - ABS 0.25 K/uL 0.01-0.08 H (CELLAVISION)(BEAKER) (test code = 2835) BANDS - ABS (CELLAVISION)(BEAKER) 0.13 K/uL 0.00-0.80 (test code = 2840) ATYPICAL LYMPHOCYTES - ABS 0.13 K/uL 0.00-0.00 H (CELLAVISION)(BEAKER) (test code = 2858) TOTAL COUNTED (BEAKER) (test code 100 = 1351) PLT MORPHOLOGY (BEAKER) (test code Normal = 486) HYPERSEGMENTATION Present (CELLAVISION)(BEAKER) (test code = 3445) POLYCHROMATOPHILLIC RBCS(BEAKER) 1+ few (test code = 478) ANISOCYTOSIS (BEAKER) (test code = 1+ few 961) POIKILOCYTES (BEAKER) (test code = 1+ few 966) TARGET CELLS (BEAKER) (test code = 1+ few 480) TEAR DROP CELLS (BEAKER) (test 1+ few code = 481) BASOPHILIC STIPPLING (BEAKER) Present (test code = 473) ARTIFACT (CELLAVISION)(BEAKER) Present (test code = 3432) PLATELET CONCENTRATION Adequate (CELLAVISION)(BEAKER) (test code = 3438) Received comment: User comments: Slide comments:BASIC METABOLIC [id number] 05:28:00 Test Item Value Reference Range Interpretation Comments SODIUM (BEAKER) 128 meq/L 136-145 L (test code = 381) POTASSIUM (BEAKER) 2.9 meq/L 3.5-5.1 L (test code = 379) CHLORIDE (BEAKER) 103 meq/L 98-107 (test code = 382) CO2 (BEAKER) (test 19 meq/L 22-29 L code = 355) BLOOD UREA NITROGEN 18 mg/dL 7-21 (BEAKER) (test code = 354) CREATININE (BEAKER) 1.02 mg/dL 0.57-1.25 (test code = 358) GLUCOSE RANDOM 97 mg/dL 70-105 (BEAKER) (test code = 652) CALCIUM (BEAKER) 7.5 mg/dL 8.4-10.2 L (test code = 697) EGFR (BEAKER) (test 84 mL/min/1.73 ESTIMA MARCIN GFR IS code = 1092) sq m NOT ACCURATE CREATININE CLEARANCE IN PREDICTING GLOMERULAR FILTRATION RATE . ESTIMATED GFR I S NOT APPLICABLE FOR DIALYSIS PATIEN TS. Specimen markedly ictericHEPATIC FUNCTION [id number] 05:28:00 Test Item Value Reference Range Interpretation Comments TOTAL PROTEIN (BEAKER) (test code 5.4 gm/dL 6.0-8.3 L = 770) ALBUMIN (BEAKER) (test code = 1.9 g/dL 3.5-5.0 L 1145) BILIRUBIN TOTAL (BEAKER) (test 11.7 mg/dL 0.2-1.2 H code = 377) BILIRUBIN DIRECT (BEAKER) (test 9.1 mg/dL 0.1-0.5 H code = 706) ALKALINE PHOSPHATASE (BEAKER) 421 U/L 40-150 H (test code = 346) AST (SGOT) (BEAKER) (test code = 120 U/L 5-34 H 353) ALT (SGPT) (BEAKER) (test code = 63 U/L 6-55 H 347) Specimen markedly [id number] 02:27:00 Test Item Value Reference Range Interpretation Comments MAGNESIUM (BEAKER) (test code = 1.6 mg/dL 1.6-2.6 627) Urinalysis with Microscopic If [id number] 01:58:00 Test Item Value Reference Range Interpretation Comments Color, UA (test code = 5778-6) Dark Yellow Clarity, UA (test code = 5767-9) Clear Specific [place], UA (test code = 1.008 1.001-1.035 5811-5) pH, UA (test code = 5803-2) 6.0 5.0-8.0 Protein, UA (test code = 72820-9) 10 mg/dL Negative A Glucose, UA (test code = 365) Negative Negative Ketones, UA (test code = 2514-8) Negative Negative Bilirubin, UA (test code = Positive Negative A 15723-8) Blood, UA (test code = 76244-3) Negative Negative Nitrite, UA (test code = 5802-4) Negative Negative Leukocytes, UA (test code = Small Negative A 5799-2) Urobilinogen, UA (test code = 0.2 mg/dL 0.2-1 01263-2) Specimen Source (test code = 2795) Lab Interpretation (test code = Abnormal 74719-7) [facility] [id number] 01:58:00 Test Item Value Reference Range Interpretation Comments RBC, UA (test code = 54616-9) <1 /HPF WBC, UA (test code = 5821-4) 1 /HPF Bacteria, UA (test code = 38190-1) Rare Mucus (test code = 8247-9) Rare Squam Epithel, UA (test code = 22477-5) <1 /HPF Granular Casts, UA (test code = 5793-5) 3 /LPF [facility] WITH MICROSCOPIC IF [id number] 01:58:00 Test Item Value Reference Range Interpretation Comments COLOR (BEAKER) (test code = 470) Dark Yellow CLARITY (BEAKER) (test code = Clear 469) SPECIFIC GRAVITY UA (BEAKER) 1.008 1.001-1.035 (test code = 468) PH UA (BEAKER) (test code = 467) 6.0 5.0-8.0 PROTEIN UA (BEAKER) (test code = 10 mg/dL Negative A 464) GLUCOSE UA (BEAKER) (test code = Negative Negative 365) KETONES UA (BEAKER) (test code = Negative Negative 371) BILIRUBIN UA (BEAKER) (test code Positive Negative A = 462) BLOOD UA (BEAKER) (test code = Negative Negative 461) NITRITE UA (BEAKER) (test code = Negative Negative 465) LEUKOCYTE ESTERASE UA (BEAKER) Small Negative A (test code = 466) UROBILINOGEN UA (BEAKER) (test 0.2 mg/dL 0.2-1.0 code = 463) SOURCE(BEAKER) (test code = 2795) URINALYSIS [id number] 01:58:00 Test Item Value Reference Range Interpretation Comments RBC UA (BEAKER) (test code = 519) < /HPF WBC UA (BEAKER) (test code = 520) 1 /HPF BACTERIA (BEAKER) (test code = 517) Rare MUCUS (BEAKER) (test code = 1574) Rare SQUAMOUS EPITHELIAL (BEAKER) (test < /HPF code = 516) GRANULAR CASTS (BEAKER) (test code = 3 /LPF 515) BASIC METABOLIC [id number] 01:15:00 Test Item Value Reference Range Interpretation Comments SODIUM (BEAKER) 129 meq/L 136-145 L (test code = 381) POTASSIUM (BEAKER) 3.0 meq/L 3.5-5.1 L (test code = 379) CHLORIDE (BEAKER) 103 meq/L 98-107 (test code = 382) CO2 (BEAKER) (test 19 meq/L 22-29 L code = 355) BLOOD UREA NITROGEN 18 mg/dL 7-21 (BEAKER) (test code = 354) CREATININE (BEAKER) 0.98 mg/dL 0.57-1.25 (test code = 358) GLUCOSE RANDOM 97 mg/dL 70-105 (BEAKER) (test code = 652) CALCIUM (BEAKER) 7.6 mg/dL 8.4-10.2 L (test code = 697) EGFR (BEAKER) (test 88 mL/min/1.73 ESTIMA MARCIN GFR IS code = 1092) sq m NOT ACCURATE CREATININE CLEARANCE IN PREDICTING GLOMERULAR FILTRATION RATE . ESTIMATED GFR I S NOT APPLICABLE FOR DIALYSIS PATIEN TS. Specimen markedly ictericLactic acid, [id number] 01:07:00 Test Item Value Reference Range Interpretation Comments Lactate, Venous (test code 1.5 mmol/L 0.5-2.2 = 2872) JOHN (test code = JOHN) Specimen markedly icteric Lab Interpretation (test Normal code = 88195-0) [facility] HospitalLACTIC ACID, [id number] 01:07:00 Test Item Value Reference Range Interpretation Comments LACTATE BLOOD VENOUS (2) (BEAKER) 1.5 mmol/L 0.5-2.2 (test code = 2872) Specimen markedly ictericCreatinine, random [id number] 23:00:00 Test Item Value Reference Range Interpretation Comments Creatinine, Ur (test 84.6 mg/dL code = 2161-8) JOHN (test code = Reference Range: No JOHN) Normals [facility] [id number] 23:00:00 Test Item Value Reference Range Interpretation Comments Sodium Urine (test 51 meq/L code = 2955-3) JOHN (test code = JOHN) Reference Range: No Normals [facility] HospitalCREATININE, RANDOM [id number] 23:00:00 Test Item Value Reference Range Interpretation Comments CREATININE URINE (BEAKER) (test 84.6 mg/dL code = 375) Reference Range: No NormalsSODIUM, RANDOM [id number] 23:00:00 Test Item Value Reference Range Interpretation Comments SODIUM URINE (BEAKER) (test code = 51 meq/L 243) Reference Range: No NormalsPOC-Lactic Acid, [id number] 19:39:00 Test Item Value Reference Range Interpretation Comments POC-Lactic Acid, Venous 1.8 mmol/L 0.9-1.7 H TEST ED AT [facility] (test code = 2805) [address] [facility] 7703 0 Lab Interpretation (test Abnormal code = 16844-6) [facility] HospitalPOCT-LACTIC ACID, [id number] 19:39:00 Test Item Value Reference Range Interpretation Comments POC-LACTIC ACID, 1.8 mmol/L 0.9-1.7 H TESTED AT [facility] [address] (BEAKER) (test [facility] code = 2805) [address] [id number] 18:01:00 Test Item Value Reference Range Interpretation Comments Procalcitonin (test code = 3.46 ng/mL <0.05 H 64481-5) JOHN (test code = JOHN) SEPSIS RISK (ng/mL)Low: 0.05-0.50Intermedi ate: 0.51-2.00High: >=2.01 Lab Interpretation (test Abnormal code = 92014-4) [facility] Hospi[id number] 18:01:00 Test Item Value Reference Range Interpretation Comments PROCALCITONIN (BEAKER) (test code 3.46 ng/mL <0.05 H = 3036) SEPSIS RISK (ng/mL)Low: 0.05-0.50Intermediate: 0.51-2.00High: >=2.01[facility] [id number] 18:00:00 Test Item Value Reference Range Interpretation Comments Troponin I (test code = <0.01 0-0.03 76478-1) JOHN (test code = JOHN) Troponin I (TnI) levels must be interpreted in the context of the presenting symptoms and the clinical findings. Elevated TnI levels indicate myocardial damage, but are not specific for ischemic heart disease. Elevated TnI levels are seen in patients with other cardiac conditions (including myocarditis and congestive heart failure), and slight TnI elevations occur in patients with other conditions, including sepsis, renal failure, acidosis, acute neurological disease, and persistent tachyarrhythmia. Lab Interpretation (test Normal code = 46839-0) [facility] [id number] 18:00:00 Test Item Value Reference Range Interpretation Comments TROPONIN I (BEAKER) (test code = 397) < ng/mL 0.00-0.03 Troponin I (TnI) levels must be interpreted in the context of the presenting symptoms and the clinical findings. Elevated TnI levels indicate myocardial damage, but are not specific for ischemic heart disease. Elevated TnI levels are seen in patients with other cardiac conditions (including myocarditis and congestive heart failure), and slight TnI elevations occur in patients with other conditions, including sepsis, renal failure, acidosis, acute neurological disease, and persistent tachyarrhythmia.[id number] 17:59:00 Test Item Value Reference Range Interpretation Comments MAGNESIUM (BEAKER) 1.8 mg/dL 1.6-2.6 Specimen moderately (test code = 627) hemolyzed [id number] 17:59:00 Test Item Value Reference Range Interpretation Comments PHOSPHORUS (BEAKER) 2.2 mg/dL 2.3-4.7 L Specimen moderately (test code = 604) hemolyzed BASIC METABOLIC [id number] 17:59:00 Test Item Value Reference Range Interpretation Comments SODIUM (BEAKER) 129 meq/L 136-145 L (test code = 381) POTASSIUM (BEAKER) 3.4 meq/L 3.5-5.1 L Specimen moderately (test code = 379) hemolyzed CHLORIDE (BEAKER) 103 meq/L 98-107 (test code = 382) CO2 (BEAKER) (test 15 meq/L 22-29 L code = 355) BLOOD UREA NITROGEN 20 mg/dL 7-21 (BEAKER) (test code = 354) CREATININE (BEAKER) 1.03 mg/dL 0.57-1.25 Specimen moderately (test code = 358) hemolyzed GLUCOSE RANDOM 87 mg/dL 70-105 (BEAKER) (test code = 652) CALCIUM (BEAKER) 8.0 mg/dL 8.4-10.2 L (test code = 697) EGFR (BEAKER) (test 83 mL/min/1.73 ESTIMA MARCIN GFR IS code = 1092) sq m NOT ACCURATE CREATININE CLEARANCE IN PREDICTING GLOMERULAR FILTRATION RATE . ESTIMATED GFR I S NOT APPLICABLE FOR DIALYSIS PATIEN TS. Specimen markedly ictericHEPATIC FUNCTION [id number] 17:59:00 Test Item Value Reference Range Interpretation Comments TOTAL PROTEIN (BEAKER) 6.6 gm/dL 6.0-8.3 Speci men moderately (test code = 770) hemolyzed ALBUMIN (BEAKER) (test 2.2 g/dL 3.5-5.0 L Speci men moderately code = 1145) hemolyzed BILIRUBIN TOTAL 13.1 mg/dL 0.2-1.2 H Specimen mod erately (BEAKER) (test code = hemoly zed 377) BILIRUBIN DIRECT 9.3 mg/dL 0.1-0.5 H Specimen mo derately (BEAKER) (test code = hemoly zed 706) ALKALINE PHOSPHATASE 468 U/L 40-150 H (BEAKER) (test code = 346) AST (SGOT) (BEAKER) 165 U/L 5-34 H Specimen moderately (test code = 353) hemolyzed ALT (SGPT) (BEAKER) 82 U/L 6-55 H Specimen moderately (test code = 347) hemolyzed Specimen markedly [id number] 17:59:00 Test Item Value Reference Range Interpretation Comments LIPASE (BEAKER) (test code = 749) 142 U/L 8-78 H Specimen markedly ictericRAD, CHEST, 1 VIEW, NON [id number] 17:53:00Reason for exam:->GENERALIZED WEAKNESS, NOT ASSOCIATED WITH EXTREMITIESShould this be performed at the bedside?->YesFINAL REPORT History: Generalized weakness. FINDINGS: Chest, single view: Single AP view of the chest shows a normal size heart. The thoracic aorta is moderately tortuous. Lungs are clear, free of edema, focal consolidation or visible effusions. Minimal opacity in the right lower lobe likely represents atelectasis. Bones appear osteopenic but are otherwise unremarkable. IMPRESSION: 1. Negative for acute cardiopulmonary disease. Tortuous aorta and great vessels are noted. Signed: Nancy Riojas Verified Date/Time: 03/08/2019 17:53:00 Reading Location: [facility] Reading Room XR chest 1 view portable / [id number] 17:53:00Interface, External Ris In - 03/08/2019 5:55 PM CDTFINAL REPORT History: Generalized weakness. FINDINGS: Chest, single view: Single AP view of the chest shows a normal size heart. The thoracic aorta is moderately tortuous. Lungs are clear, free of edema, focal consolidation or v isible effusions. Minimal opacity in the right lower lobe likely represents atelectasis. Bones appear osteopenic but are otherwise unremarkable. IMPRESSION: 1. Negative for acute cardiopulmonary disease. Tortuous aorta and great vessels are noted. Signed: Nancy Riojas Verified Date/Time: 03/08/2019 17:53:00 Reading Location: [facility] 17[facility]00 Test Item Value Reference Range Interpretation Comments PTT (test code = 49428-0) 33.1 22.5- 36.0 seconds Lab Interpretation (test code = Normal 56084-9) [facility] HospitalUrinalysis w/Microscopic + Reflex to Culture 2019-03-08 17:41:00 Test Item Value Reference Range Interpretation Comments Color, UA (test code = 5778-6) Dark Yellow Clarity, UA (test code = 5767-9) Clear Specific [place], UA (test code = 1.011 1.001-1.035 5811-5) pH, UA (test code = 5803-2) 6.0 5.0-8.0 Protein, UA (test code = 31181-1) 20 mg/dL Negative A Glucose, UA (test code = 365) Negative Negative Ketones, UA (test code = 2514-8) Negative Negative Bilirubin, UA (test code = Positive Negative A 51363-6) Blood, UA (test code = 37315-0) Negative Negative Nitrite, UA (test code = 5802-4) Negative Negative Leukocytes, UA (test code = Small Negative A 5799-2) Urobilinogen, UA (test code = 0.2 mg/dL 0.2-1 57866-3) RBC, UA (test code = 66404-9) <1 /HPF WBC, UA (test code = 5821-4) 6 /HPF Specimen Source (test code = 2795) Lab Interpretation (test code = Abnormal 70196-0) [facility]UR[facility] W/ REFLEX URINE [id number] 17:41:00 Test Item Value Reference Range Interpretation Comments COLOR (BEAKER) (test code = 470) Dark Yellow CLARITY (BEAKER) (test code = Clear 469) SPECIFIC GRAVITY UA (BEAKER) 1.011 1.001-1.035 (test code = 468) PH UA (BEAKER) (test code = 467) 6.0 5.0-8.0 PROTEIN UA (BEAKER) (test code = 20 mg/dL Negative A 464) GLUCOSE UA (BEAKER) (test code = Negative Negative 365) KETONES UA (BEAKER) (test code = Negative Negative 371) BILIRUBIN UA (BEAKER) (test code Positive Negative A = 462) BLOOD UA (BEAKER) (test code = Negative Negative 461) NITRITE UA (BEAKER) (test code = Negative Negative 465) LEUKOCYTE ESTERASE UA (BEAKER) Small Negative A (test code = 466) UROBILINOGEN UA (BEAKER) (test 0.2 mg/dL 0.2-1.0 code = 463) RBC UA (BEAKER) (test code = 519) < /HPF WBC UA (BEAKER) (test code = 520) 6 /HPF SOURCE(BEAKER) (test code = 2795) [id number] 17:41:00 Test Item Value Reference Range Interpretation Comments PARTIAL THROMBOPLASTIN TIME 33.1 seconds 22.5-36.0 (BEAKER) (test code = 760) PROTHROMBIN TIME/[id number] 17:40:00 Test Item Value Reference Range Interpretation Comments PROTIME (BEAKER) (test code = 14.2 seconds 11.9-14.2 759) INR (BEAKER) (test code = 370) 1.1 <=5.9 Effective 11/07/2018: PT Reference Range ChangeNew: 11.9-14.2 Previous: 11.7- 14.7RECOMMENDED COUMADIN/WARFARIN INR THERAPY RANGESSTANDARD DOSE: 2.0-3.0 Includes: PROPHYLAXIS for venous thrombosis, systemic embolization; TREATMENT for venous thrombosis and/or pulmonary embolus.HIGH RISK: Target INR is2.5-3.5 for patients wiht mechanical heart valves.CBC W/PLT COUNT & AUTO [id number] 17:33:00 Test Item Value Reference Range Interpretation Comments WHITE BLOOD CELL COUNT (BEAKER) 12.6 K/ L 3.5-10.5 H (test code = 775) RED BLOOD CELL COUNT (BEAKER) 3.22 M/ L 4.63-6.08 L (test code = 761) HEMOGLOBIN (BEAKER) (test code = 10.6 GM/DL 13.7-17.5 L 410) HEMATOCRIT (BEAKER) (test code = 29.0 % 40.1-51.0 L 411) MEAN CORPUSCULAR VOLUME (BEAKER) 90.1 fL 79.0-92.2 (test code = 753) MEAN CORPUSCULAR HEMOGLOBIN 32.9 pg 25.7-32.2 H (BEAKER) (test code = 751) MEAN CORPUSCULAR HEMOGLOBIN CONC 36.6 GM/DL 32.3-36.5 H (BEAKER) (test code = 752) RED CELL DISTRIBUTION WIDTH 15.0 % 11.6-14.4 H (BEAKER) (test code = 412) PLATELET COUNT (BEAKER) (test 396 K/CU MM 150-450 code = 756) MEAN PLATELET VOLUME (BEAKER) 9.7 fL 9.4-12.4 (test code = 754) NUCLEATED RED BLOOD CELLS 0 /100 WBC 0-0 (BEAKER) (test code = 413) NEUTROPHILS RELATIVE PERCENT 74 % (BEAKER) (test code = 429) LYMPHOCYTES RELATIVE PERCENT 13 % (BEAKER) (test code = 430) MONOCYTES RELATIVE PERCENT 9 % (BEAKER) (test code = 431) EOSINOPHILS RELATIVE PERCENT 1 % (BEAKER) (test code = 432) BASOPHILS RELATIVE PERCENT 0 % (BEAKER) (test code = 437) NEUTROPHILS ABSOLUTE COUNT 9.34 K/ L 1.78-5.38 H (BEAKER) (test code = 670) LYMPHOCYTES ABSOLUTE COUNT 1.60 K/ L 1.32-3.57 (BEAKER) (test code = 414) MONOCYTES ABSOLUTE COUNT (BEAKER) 1.09 K/ L 0.30-0.82 H (test code = 415) EOSINOPHILS ABSOLUTE COUNT 0.06 K/ L 0.04-0.54 (BEAKER) (test code = 416) BASOPHILS ABSOLUTE COUNT (BEAKER) 0.04 K/ L 0.01-0.08 (test code = 417) IMMATURE GRANULOCYTES-RELATIVE 4 % 0-1 H PERCENT (BEAKER) (test code = 2801) POCT-LACTIC ACID, [id number] 17:30:00 Test Item Value Reference Range Interpretation Comments POC-LACTIC ACID, 1.8 mmol/L 0.9-1.7 H TESTED AT [facility] [address] (BEAKER) (test [facility] code = 2805) [address] BLOOD [id number] 14:01:00 Test Item Value Reference Range Interpretation Comments CULTURE (BEAKER) (test No growth in 5 days code = 1095) BLOOD [id number] 14:01:00 Test Item Value Reference Range Interpretation Comments CULTURE (BEAKER) (test No growth in 5 days code = 1095) [id number] 09:49:00 Test Item Value Reference Range Interpretation Comments Ferritin (test code = 2276-4) 4058 ng/mL 5-275 H Lab Interpretation (test code = Abnormal 14418-8) [facility] HospitalFERRITIN2019-07-31 09:49:00 Test Item Value Reference Range Interpretation Comments FERRITIN (BEAKER) (test code = 4058 ng/mL 5-275 H 361) COMPREHENSIVE METABOLIC [id number] 08:59:00 Test Item Value Reference Range Interpretation Comments TOTAL PROTEIN 5.2 gm/dL 6.0-8.3 L (BEAKER) (test code = 770) ALBUMIN (BEAKER) 2.4 g/dL 3.5-5.0 L (test code = 1145) ALKALINE PHOSPHATASE 259 U/L 40-150 H (BEAKER) (test code = 346) BILIRUBIN TOTAL 22.6 mg/dL 0.2-1.2 H (BEAKER) (test code = 377) SODIUM (BEAKER) (test 129 meq/L 136-145 L code = 381) POTASSIUM (BEAKER) 4.0 meq/L 3.5-5.1 (test code = 379) CHLORIDE (BEAKER) 104 meq/L 98-107 (test code = 382) CO2 (BEAKER) (test 19 meq/L 22-29 L code = 355) BLOOD UREA NITROGEN 21 mg/dL 7-21 (BEAKER) (test code = 354) CREATININE (BEAKER) 1.09 mg/dL 0.57-1.25 (test code = 358) GLUCOSE RANDOM 84 mg/dL 70-105 (BEAKER) (test code = 652) CALCIUM (BEAKER) 8.2 mg/dL 8.4-10.2 L (test code = 697) AST (SGOT) (BEAKER) 146 U/L 5-34 H (test code = 353) ALT (SGPT) (BEAKER) 109 U/L 6-55 H (test code = 347) EGFR (BEAKER) (test 78 mL/min/1.73 ESTIMA MARCIN GFR IS code = 1092) sq m NOT ACCURATE CREATININE CLEARANCE IN PREDICTING GLOMERULAR FILTRATION RATE . ESTIMATED GFR I S NOT APPLICABLE FOR DIALYSIS PATIEN TS. Specimen markedly ictericIron, TIBC, % sat. (without ferritin)2019-01-09 07:38:00 Test Item Value Reference Range Interpretation Comments Iron (test code = 2498-4) 108.0 ug/dL 40-160 TIBC (test code = 2500-7) 156 ug/dL 250-450 L Iron % Saturation (test code = 69 % 20-55 H 2502-3) Lab Interpretation (test code = Abnormal 27994-0) [facility] HospitalIRON, TIBC, % SAT. (WITHOUT FERRITIN)2019-01-09 07:38:00 Test Item Value Reference Range Interpretation Comments IRON (BEAKER) (test code = 547) 108.0 ug/dL 40.0-160.0 TOTAL IRON BINDING CAPACITY 156 ug/dL 250-450 L (BEAKER) (test code = 769) IRON % SATURATION (2) (BEAKER) 69 % 20-55 H (test code = 2590) [id number] 17:17:00 Test Item Value Reference Range Interpretation Comments Case Report (test code Medical Cytology = 104) Report Case: [id number] Authorizing Provider: Shmuel Ramachandran Collected: 01/06/2019 1501 MD Clary Ordering Location: [address] Received: 01/07/2019 09 Service Pathologist: Rhys Oliver MD Specimen: Common Bile Duct, Distal common bile duct stricture brushing in CRR for routine cyto DIAGNOSIS (test code = [id number] 3220) WoJYMha5syTLQchAYkEiVa MzNcZnRuYmpcdWMxXGRlZm Zwr2nsx100zPJsq1koCLQs NfR8dRQrRGYnwIVcK575PL NaFXqjg5glm2XjKWZysAXy c6S0NCEKbuvtfZw7iQeyQ0 8ao9P5GnnsZ1roGLJaWZKg U6BiOM4yFLYqIef8ZSP4XE N0VEOgWFFwW8VyZL3hJJRp iZKdRWt5y4euoKqoQEVaXJ F5d8hvSTwriqE9GQ7ilb7u lMj1q7nhieFvRFSjDLIecB WXVIAnR1PicLsbCj3hiEg2 mTukMtwzGEM0Iyb4BX4swf 67xza5nZzrMVWvnerrKrN5 IAflMMVfhtupEIn0GRefEL JnbDcyMFxtYXJncjcyMFxt YXJndDcyMFxtYXJnYjcyMF mkPNMeNKL6KBimp252KYD3 ZIaif4dsu4mnyBIzDyi7PJ YaChRlTydmSHeyb3Nhb1fv HNWeRuC7QJnaIL0jwp17YY WiIFV2gr0ygSEzuIawafId lLJiCDcqL3HjCHFvc063OS EpW3DwLGJyn3S1ebKjKvNe XZZbqLL0pcE8SBSnVRg8dE DsxqF9hqKcaRWkS1skgJ99 IzWekYDsU2MadF20DtBxgD MhQ0BeoX60PiSrwCMuP9Lr dH73SlFyzCUwJKOouQOzHu 2kfAYeiBKoq9VcbVVjSYzd U09qj167GHEuxkPgY2kjoK FpblxwbGFpblxmMFxmczI0 XHFsXHBsYWluXGYxXGZzMj BcbGFuZzEwMzNcaGljaFxm ONalGbEtOBVeFGclI0lhDs QdWnOcTHMDG69FF84rBzjK DNLHMFRALZQBXSECPT9EUD qRIQREY7AXNvOsUR2GRKXU REioJjeSF8bdEivveS3hNO CkGJ0yD7xIK2PUYjChF3Tv XOhWKJhBXRQLMBIEX0EPIN QDZTvHLTZES23EPSBRXifG BBgKEVyzYYDWUr1QCWGESV 8DNMAgRWOZPBITI96HKU8Q KVxwYXJccGFyICBccGxhaW 8kNqKbSdEjHtujWP2dIFEi H2fioBWbLOTmNDKvJ6ljPk LnmH2daImoUHdncjQnEGFs Axs9FSGjrMEpCPToMln7WM OeOWCgL94vhxstWCR2pT5r x8awq1VjNSnlPTG9KVRbg2 6qQBndnkM4QEhbLr5tTKMq XTF8KImqOXQykGQmTUyfhT XcjwdlXLuiciW8OQQiXKao XGYxXGZzMjRccGFyfQ== COMMENT (test code = i5xziNGjNYIycUUoVqUiMT 3359) VoTJOje1rdVEWfaFTwVyMw MzNcZnRuYmpcdWMxXGRlZm Rzc5jzg789yQIbj7mkEMLb FfN0eCMpGPRxtMDkM997BV SdHFnfr6qzd1HbTPNzjZMx l7R1HBZLqlogtLa9gIonK9 9gr8R8OrwaO2llDQPpLLNh M9WvFY2sOVMdMfx1CYZ6FA X9JTPvJZTeG1MoZY8bLCZm tLQbFJy2p9ihuVwzSZTxRH W8f1zqUGznnpJiYP7dxe4p hQf5s2eubjDwUTXpSVYxqY LKIAQgA6RyaDxiVl9qcNe6 gRqzAhkaXNL3Tyu7YB6zbi 78aju7kVjiVLJxybanRqD2 GVpiNHEvkrueAMr5EPcmJQ JnbDcyMFxtYXJncjcyMFxt YXJndDcyMFxtYXJnYjcyMF fiPVWlKLM8JSozt596IDP2 HAlwz6fig9fveQHoZmu1YA PtLmHjVtoiKHsym9Jeg2yu UHKfqr5dEFJ0yXTztZalv8 N2vLOaWBCehXFborRrYUGz LkG3JEvnMF0zib38GHSnBF U5wo1moIStdQejtvDdjTOz TUamM1HaCZXrt312QRPuL9 TvCSOhl9B4njTyLnApHVDp yCY2ilT9BJRpJAy5xSBlvo D0dnCieTIxR7jyaW26BlFm jKLzQ2JglA68GkRisJAwO0 EhgX57BzQqwUXeI1KtwH57 PvCuyUEoOOFjaUWcLx9gfL AdqOWnx4VldMGfXQhxE56d n600CPImudKmW1aiyYMmvm inwGXdpnfdXPtksvY2OYCe XHBsYWluXGYxXGZzMjBcbG FuZzEwMzNcaGljaFxmMVxk NpQgRAFbFQfbO9zmMyCaJo RoRXCKcTXxo3CwgvPvDH6j HZBxsBmuTyaoE2esr2HccW femeThg5ubxkQoxYYgtVTb cyBvZiBhdHlwaWNhbCBjZW qlocA4zVQjQX98SYClKNDs tE2kJXCrD2kxoIQbxUImFX wgbnVjbGVhciBlbmxhcmdl qMKfxXnkfEBqMLl2yCAtCX 47P4vdEGTosKUrWzIgmgEa EZYwhG7wgIRehQRpsCJ4wZ 4yCKjjjUQxRyK1gK4kDEEy d57lWSBrF4OvNKPjs65ffz WrsFWcgYSfBW2xuC9eU10e MVOblHmquPLqC1EtdZy3PK XujOZnS4NsFY46F5iocSJf wdWob2AryVGrcvGeGLQxyt dsZSBhdHlwaWNhbCBjZWxs hfTbayVew6PumeWavlS7vH UqSrSem1hvr0WhSZ0fPOYc nCPaq69loTr2AII9aUVawF P3fHIouNZpz38ldHOpXV28 HZSoySVngUMqXkyfdPV5KM eDNRckBZO0IyDvEYTwy6ar OD9gomqjFOQyxQQobH0nwT PbAYZ0sVqlPdFRJGoxawA1 c4nokVbigrypxWxqBMLvYH L6btQzPPEqGRTny2N8MEDx rDUfxUssiRFoh0s0mNSeCQ XpQUevn1XnksRuZhRvNSUd t0FaceRxzc8lRH7jADZeza 0= CPT Code(s) (test code u6ddhTZfWVYczSOuSmElQQ = 3357) PpWDXnc7myUCRrmGYkTrUz MzNcZnRuYmpcdWMxXGRlZm Qzv1nwx695dLKnq6xbWGJx RaW5iMKnHBVlnRIpX058j6 hlk8psneJyqHM6AZGyURK0 KZssneLsxuE4SKvbrTTuGx U9IGmhcsIkJIpwtsMrmiVa Vyf6UGDcC992SLA9fZzmc7 poDBW7VJPdDNVhDoLqUy6e bOQxZ431TSDxEVQTMDGrcD z4ZXCumyOaqlIcrSPQi882 W949w0adMZPkzxAqaUxDoo ulo9chR982MBHvfJIhlcRi MvCzSKSfpXSyuIU7AERnBO 8mocmyOtNxIW4gazciIbNi SN0irmx0IvQvJH5ayfkeOg UkKMofRHVgwctgROYgt8Hg erotQI9kV3Txe1T1pP1ppO NtEFEwpGAoAgVuTGFywh7t aUTsXKjnk5GlNSW3szW4qS KunUQySMEsSO47Dfwpe3Rc LjlbPIL9KJEbydZyy8Zyu6 bjZiClckYzK3umX9JtGFYo ZHMtRBEoCiOfusLil4Agi9 JopEIagPa8p9mtJFIoJBDy pHops1jbNDG2VQRcE3M2yA Fkp1qtYDvbRKOjnPI2kmmz FDatBGAaatS5mjxhXCitDA FotDD7outvBRrvABIwVeV6 riluBZirQTJmPYL2GLftr2 05EGF5ULghOxvfUVgqJUHp bmNvbnRccGduZGVjXHBsYW luXHBsYWluXGYwXGZzMjRc fMwogKwlcV4oJcSzSzIkLF esNP3gIGYrS1yspOTxTWLu MUUdJ5kyAvFpzN8wtWsiLY xghhIqJVt1WTW0EAA5IGSh NVxwYXJ9 CLINICAL DATA (test e2uddFUjOSFllLNnUlFoNR code = 3355) OhMQUlo3eeIOMyiFNzOiGu MzNcZnRuYmpcdWMxXGRlZm Yog3yrm553zLSwu9ehAIXi VdB2fSIdUNQiyJSbM463n1 zlo8pxzwIibUT4BQTfKMJ2 ODqnhjAxycN8WNxvlUGuTi J2REaskaMaSSqlyhHxavDl Nud8BLNwC503DMO0eUnkp6 rrUXV9BODdLFVvLtGvWg1o bLMbI236QEWqIDWQWAGyoE x0SDOtoiFdogYfeMLAp823 H341s2esTXRpaxNmkDpKmi iku0ilR705OVVzrNYggeAl WbEfMKLjrKMgmEX2LZJbYC 5fwwooPsEbBB6hzjknCiNu XR0vwnq3NrZlZF6erzlsZm VdIMgzINJthirsTARqh5Jr rdkaDC7yK9Pwb2O2bS9mnD DsKCRtgGWyDoCzLGOwiw6f bNJnXBmzk9HoJWD4ypD6pW DzhPVwUFBgCB14Vrrow1Gf WnmyBPR9ELKniyIsi0Oea3 kwFiAnabBkK6arS3NnHSQd JPJrQTQrDpPgmuQqi0Ewf8 AzsVEepNh1w2cxAVHkOJMo jKjny5wfLEW2YDYwA9O9nW Fgi5qyGCtlSTPlxOX8rqxt CIcxTMExuxU1wqesXZyaXZ TzjCJ1xijlYNhvPZMyYkY9 efodWGycILGuWWE2PYjhu3 68DXL7LNxdOlueSNwoYARo bmNvbnRccGduZGVjXHBsYW luXHBsYWluXGYwXGZzMjRc jDgcpIcodG0nVpXhIhZdKG pkIQ5lUOOhB8sdpNMqHCHr EJYgC2qmYiYxjK0aiIuqKU lpgwBnDXKtg3BszLRgu88w w39lNanaYOSmwVX6WIM0ol iogQHqEBwxrWGwN6RqTAXx YyBtYXNzXHBhcn0= SPECIMEN SOURCE (test w8ihfHWvWVKfuMMlMvXlNH code = 3377) EuNXQnd8dzJALenABnIgTb MzNcZnRuYmpcdWMxXGRlZm Jgo1sqa160fHKbh6blFKTk ZwA2jWVbFBRezWTwP607x2 vai3fcfhHnxLZ9AKQoNKZ2 TNnstvOpqoF2VNwsjPNuUk C4DZybxmGhVZkllwFurcLk Ixy3VAPeR970VMZ5fNkhv5 xoDBY4CLHcOWJlBpPkXa1s dJWtW360HKRfUDNFFHOrjO r6IXKpshUnrkGieMGZh629 H339g6afZSXlzvBeyShMyr zim8bnD773DTDhmRSevePi SsPrQZAosDGwdWL2HTNlIN 0seltaFzBqCD1qljvvWfOm IG2tcgq0PlKsHO8itwevWs LdKIewOEWjlwobSRJyn6Xb sycpZS7cY4Txh3L7lK7wmI KiSELeqCIhUrOyMFDvku8n dFUbDSipj6RrRZR6xbO2lM StiUNnUKCnSU20Isgbu8Ud IhyeOHK9RRGyfnBos7Fta0 lkMoFvlzJrF1uzB5YzKQYm SNVfCEZvLeUmuqMzs1Lgh4 CklNOdlSb5y0nbPZNzRKNx qQpoj0ffJRP5VXVaW4S9cT Sni6imIDbsBCJymRQ5wzkn AUrjYJHegjN2wevoQApiTF QzcPE6ynneFQtbGVSwRmX5 axmvRTnfEQXkUUR4YJmzm6 48JFV3TMegFebfRBnyGQHe bmNvbnRccGduZGVjXHBsYW luXHBsYWluXGYwXGZzMjRc qGmriMqvnR2nKrOoAgWnUW tgRS2xHNSsT4icnNDuKGWq OLOoP1unUlJseD4urKfrZQ xuhnRmRKYCHC3OKxFUCBvC JBFCM7JfKfYRC0oTOxintB FyfQ== GROSS DESCRIPTION (test i4twnRFiDBEvzFFmTyXfCH code = 3366) VtIRZai7szKZTczFVjWeVx MzNcZnRuYmpcdWMxXGRlZm Tmx2cri140oOElk5lnWGMt IsE4gVVoWHOwbYLgY225QT YaEGvqp2vpm2WmMJQjjJAy f7B3QWREotrnuZn7vOelE6 8jy5E5LkiyC1vvMRIcIYJt P1XuSN1qDSXsVmq6EID3MI V6UDHvFXVhC1WtCR3ePAAa yOLyVRe9j2ooeHbjOQSfJM H8d2yaYJrbzySnCY0kka5j iSd6u5wngfPqVFMmGMHjsI HSYXBiR9UmpJqnOa7xxEr8 qGflKqzsZLF2Pnp8RW3eyy 29sza3aRaxNDDkgujtKyZ1 BXxdLGRetfgoBUa5ZBsrLH JnbDcyMFxtYXJncjcyMFxt YXJndDcyMFxtYXJnYjcyMF loHOFtAFT1KPgdi077DFA0 UXqgp9pgm7twdKXtLsr8BC VrZqTuTeytKQrja8Gdi9fz SGFbvi3kYAK9rJDlrOoxr8 L8wENyARBcxBKyjuDuSNDt AxP2BSneNS8zrc77RRYqVF Q3aj1skKOocCrcpaLhuXFh FCctF9SxNPPay284RNSkO4 VuZGKpp8J1xoCyJgDcPXZr hCZ2ouF3NSOgJQm5wHCvzq W4xqEygAYkR2pooF89GpBe mHWtW7ExmL61ZkQvgIPaD6 RxjV71XkYanRSoZ4ZykH85 MxDutLVpETPfeWXjYe8niR EnxEYwt1DqiKVsLGumK58m n127JCCeycRkQ2nnpWDzzw btnCMuogfpERmvivN0SZHu XHBsYWluXGYxXGZzMjJcbG FuZzEwMzNcaGljaFxmMVxk RcJdWGMaHIkzI8roTdUoAm MyMiAxIGJydXNoIHRpcCBp xrGuGSUzyEApB3n9h6VuA5 bzjxEaGeNtDAT9sP5rnCor yhsmX2JbyTBhaC6rqdNyK9 0ltQ0lzA4sWGPeUjlvrVWy CIBpfFsbQ3HtKDxdKPtaQM H3UKMmtpWPALMbaVWmTLvj CHuvWZA8IKDqgy5= STATEMENT OF ADEQUACY Satisfactory (test code = 2757) Gross assessment was [facility] performed at (test code [facility], = 2777) Department of Pathology, [address] [place] [address], Technical component was [facility] performed at (test code [facility], = 2778) Department of Pathology, [address] [place] [address], Professional component [facility] was performed at ([facility], code = 2779) Department of Pathology, [address] [place] [address], [facility]:17:00Medical Cytology Report Case: [id number] Aut horizing Provider: Shmuel Ramachandran Collected: 01/06/2019 Madelyn Means MD OrderingLocation: [facility] Received: 01/07/2019 0927 Service Pathologist: Rhys Oliver MD Specimen: Common Bile Duct, Distal common bile duct stricture brushing in CRR for routine cyto COMMON BILE DUCT BRUSHING (CYTOSPINS AND CELL BLOCK): - CLUSTERS OF HIGHLY ATYPICAL CELLS, COMPATIBLE WITH ADENOCARCINOMA (SEE COMMENT) Signing Pathologist Direct Phone Line: [phone] signed by Rhys Oliver MD on 01/08/2019 at 5:17 PMPreliminary result electronically signed by Rhys Oliver MD on at 4:05 PMCytospins and cell block sections show clusters of atypical cells with overlapping architecture, nuclear enlargement, irregular nuclear membrane, clumpy chromatin distribution, somefocal prominent nucleoli. Some significantly enlarged nuclei and scattered single atypical cells areseen in the background. Additionally, the patient concurrent ampulla biopsy ([id number]) shows markedcytologic atypia. Taken together, the features are most compatible with a diagnosis of adenocarcinoma. 65770, 76797Thjoaw common bile duct stricture, pancreatic massCOMMON BILE DUCT BRUSHING1 brush tipin 25 mls cytorich red; 2 cytospins, cell block (collodion bag)Collected: [id number]: [id number] [facility], Department of Pathology, [address] [place] [address], [facility], [facility] of [facility], [address] [place] [address], [facility], Department of Pathology, [address] [place] [address], Vbxexv [id number] 14:35:00 Test Item Value Reference Range Interpretation Comments Case Report (test code Surgical [facility]ology = 104) Report Case: [id number] Authorizing Provider: Shmuel Ramachandran Collected: 01/06/2019 Matthias Means MD Ordering Location: [address] Received: 01/07/2019 0812 Service Pathologist: Haley Blanca MD Specimen: Ampulla, biospy DIAGNOSIS (test code = [id number] 3220) FuZzEwMzNcZnRuYmpcdWMx GIgbohOaHXwpd8NiN3NmZm AwMFxhbnNpXGRlZmxhbmcx GKTxYAU2ooBnACMdPCxkZP UdPAevHh9eiTYguRegXxGn WYGlw1vzrzBAjpmxbGs3cC eyQ92pv4N5BsmbU4odHLUk NBWpI8UaOU8mGUIrLgp5EC C1CWY9BNKyNLSoN3JuIR6t ZTPhnSSvHGw0y8imdEfoBU JhFJX4v0gqLAqfetHySG0j wb4nbQg4w0brtsMzOIVeXO PbnKGNRZArT9JndTabLv2j rWd4wFleZcjqXAY7Xhk0HZ 0dkc77gwh8tCidNEDbupky OkD6EVmfNTBhaxjhIWm6OH xtYXJnbDcyMFxtYXJncjcy MFxtYXJndDcyMFxtYXJnYj omHHebQIGaNDX2HPcne112 WMI7VEtaw3zmd5xtiOBhFf q4AOLxOvQrRgweWIlml7Al u2ojAJPvgl4aSKO2yRYjqU zfx3I3rHTtFHCzeLPwetEu PCTnFqI0GTkaEL2wul10TS DtQPS7jn6ffWCsoVxusdIi nAClVDpnZ1DrMLQvc585PR QlL7DtNIGwm8C4gkKyYbBm EQRysSY4qrN6OJWjHCw7rF KwioK9poFiyFIcR5wxmD19 BjZzdLAnW8BesD55GnWkhG WaB4FskR22OiTggIVhQ0Iv gY57EjDuwVBsATBcyNBjVo 8cvUVjqNAho4YvxBJiTKcv Q66mo028HKXmabQpB3hsoN FpblxwbGFpblxmMFxmczI0 XHFsXHBsYWluXGYwXGZzMj BcbGFuZzEwMzNcaGljaFxm PXayIvRoYPViTElcE5hdDk KsMcBjJZEPUV4USR8JFAlk FU1FWCjNIMezGdnZDMZBET BhciAtIElOVkFTSVZFIEFE MM4TA8HLB9eEQ45TWRXklm dmBFO6u5dbjPSiVCSvvYLt ODAwMFxhbnNpXGRlZmxhbm ihVUCeAAE0kmJrHAQgDQdb ZRLwEDgbBv9unSOiyXslHx AaXHOkm5eeadHNoskzbZz3 t5wlBPKyXdN6iTQbTKvgE4 kweqTtnBFtUKZwGFl1tA66 TNYnoF3oyIVwSDqxelTwCa G0AQlhSZArPjV9SRJbhQEu TSYnJ4dfAWIxUCibZPOtLW stuDYlYST6bWvpo3H1rRAl aGVldHtcZjBcZnMyMiBOb3 ZgIKu2oVpnP1RbTJFfJuB8 bHQgUGFyYWdyYXBoIEZvbn C5uD59EQdaarS3ySHar5Py t11bo164oS8ggWAmKPF7UK YqOWBdiJDwOJPdBNL3RMAg jZXkD8ovELPsHY5xdoumPY gwXUeqHIHyvCT1LBYtqBPa O4YpKGReJDpwFYYkpmi3Ez XsKz4nnNBgyBwrKZvyw8sg w7spePPwMqi8YEQmCoFaGc tqZJywr9Ucc5spPIHlll6q TZL0tZLryDazq8Y5lURcPQ JeoXFsCCRiDX0ynVPfVYSw aW1uoiyiSXDxTtMyomgyPY MlaKvtjbXjYs8ltNujVPI7 KThsX6dqfM0vEfF7GYnyQ9 oegS2oTIc8LNnzSKOrmEX1 naS9PLTigOJhA2JjsH5hSC FmTF1rmiq6k5qpWCQ1LCzt IZSiAjK0aiK2DJJyqJBjPL AbeBirUStkv175MML6NmNf PNPov2EqB7RbpAglM77jqT glJ20uLXAjcXvjiO5moQdj fI8pFyIjVmNfJJqkyCniRW 2sVDRzF8lzcLZpSPTeTFPd C8xfTsVssD8wlWxlILwsaz XoJYHcYge2KPKljCLmNKDg Ohv6EPIiKBMzK78sorjwAI M7oQ5vr0elg4SvIDegLNU1 ULHxk96jPQkutwA4LDnuCo 7sTrQtXES9URnvLEN8tK== CPT Code(s) (test code r5ucwMVjUOSvgRNeXzYaBK = 3357) AqNNUkn4jjYEPbnILfGpXe MzNcZnRuYmpcdWMxXGRlZm Ega1cjd382eKKsz3lhSTHi MdA9nPNfJAWwcNUlZ870p1 ptt5vfmhJsbKS6QWNgTVT8 MDhfhoVwumT2WBihoZHpBr F5KMecuwBcHYvpauIvanCt Myd2KQCeU548NIN9jKxri6 uiPQL9YIKeIOLkPdKjSu6u mNIsL028NHJsKTWDVELjvA m0FEGuluYdrlZxlIGVk423 P516c1lqQNMjeuBeuGpNen drz3ysM713QXBvkUQrwhZr MvOrKKRkzOQzwTD8ZUGoNL 0rmwzjRmIlNI2ffjiqAeMi GP1oajp1PoFbLO7olnrgNd BoYIuoJIUxuxquXEPdp8Zj ipnpNN2xW0Szx8G8sH7xpM CsPSFcuXYlZdWaGKYsgr7u dODfUGqdh0BnDHT2foU7eR NqhVZvZBSsMF35Narij9Zf MkueQHK8HQIfbmCss7Wuw9 atZmTseiOcQ0dsM6WqLJZp LCBmKAXkOpMjtcCes0Foj6 WbrGEguVy5n7trVHLlYRJe dIrur6lqQMV5FOXiW0P0uB Rnn6jfFDxtIQTfzNP9ieym HYqsNMWamcM3baauOJsaXO MzrPA2yijbLQyeCLYpFmC6 vdsdWXnpTDYkHBU4UZdrd6 06JZD2UWfaLktfIRupRPSr bmNvbnRccGduZGVjXHBsYW luXHBsYWluXGYwXGZzMjRc vWkjkObzqJ9zPtWpVjHxHF yaXO9mXFVjC6avdFKoJPGm NAYtI0bxDkPmvP8qrKbiLE deejMoRPk7ZkL0KOI3FEX4 MlxwYXJ9 CLINICAL HISTORY (test d2hzgZGrZNOheEPwFhGcTI code = 3358) BuVSFmn0zbTHEgsORgDwZw MzNcZnRuYmpcdWMxXGRlZm Alu4kbj280wUMvr4pkQIZc VqJ3jZXoNRAcyVIuC326OI IkLLdur5feg6RhPIXveVBz d7Y1BSQOvircaYd9yVaxX8 6ga4X0NaoxZ7koLPExBUsh HQOdFQfwmIZpXPU8TQDvOS T9GCfbdaDobiX1DCsbjAPk DgF9XJt6q1pbjBsgITZiPB R5y8gjPDgqbnLfHG0zkd5g rQn1f9opaqZzTVFnXYHgdZ ZHDRIbS2OiiKceFb3sbEa1 nOgpAompMAJ3Fhj7KN5ets 94sld9hIidJHFhlvynTnP1 ORjaBUSmlwpxLLg5RVmeGU JnbDcyMFxtYXJncjcyMFxt YXJndDcyMFxtYXJnYjcyMF xsKVAdFZV4LWglg643GVU4 ODhhk5acm3fliZIsAnz8AL QuUcKbMmviBRusa4Ycz7yp HPLetr4vYHT2zICfxCuzw5 H2iMDrUSOfgKBiqwLuBQYr TkN5SHldVQ2nhu48GHLnLQ J9rt8onTZapWjnhzDsqWVd YMomI5UfKRPfb957LPLaU8 MbFZUfx8R6gtAkXrQoYQLc fSA6rsR2YPNxJPx8wBBrva Q0bqFjnADxK4dibT43OgLz lOYvJ4BvjQ39JsQhwNLlG7 TkmA13BdCaaZHuB7AecY15 ZbDrsOQuJUEkxIYpJg3gsE WacVDxr6LnpRAhBAhcY64c i241IWCfvnRbD3burUNnlf xwbGFpblxmMFxmczIwXHFs XHBsYWluXGYwXGZzMjBccG idjY8jRsBiAnRwUFLRhmNq VF1xGQQsz7JwqKBfqFEhmy 8pzBH6VYZrdrOzJMK8qVWr rPLoj7vaUHH7 SPECIMEN SOURCE (test s4ckvZRvNJUlhLKnAbRhIJ code = 3377) VuDNPac0zdCAOggOSrEvTu MzNcZnRuYmpcdWMxXGRlZm Jfa2rcg414mEIgv7zmHOUm JpP6xFUpZPNmrBCrM573j4 qza2rvniIsbJH8QVTuSVC3 DIjxjfZmpxW7XPjzlONvMb R9LBcmybXxGOghvhHrkfKs Poa7RXMpB081HHU5pZnfi8 lkLBZ6OEQuZCLgFqSuYx8v zYLlA698GVVzNBJCWKViyX w1RQEpisFnyrMlnHVBt842 Y875z3vuUVXflyXtfDhHpd vwd5qvB741QWUreCAjwzOf UvVxCWUylZPaxUW3XWOsKO 4mgasfIvBuTW7flxjiZgSk ZP5zsgm1OrPxJG6xspwrFs XxWTeoCTJexghrMKGhm9Qg aqkiIO2hX9Zgd4I8oJ1hhT TgYCEhaLBrWgQuRKZhxz5t yZMgDYzef9MqWLS2zgY2yW VzbHZdHEFjNO79Djiov9El OqhkKTR5PSYdnyGjx8Irr4 zhOwNqdwYfP8ejM9RmPUYz CPIgZMTfOyRkyaFys8Tuc0 AmnCHexNq2s6okCJTrZQQc iHjeb8cnZBR7NKCvM0D1uQ Sdk4ffDBlwGNNvpZZ8fuvl FFelGDHfdyK4oxjrRNujYX ZmwXE9equsCPcwDTViWuP9 kwviFVzmMXYeBNS2WMwix0 52XDE9RLpgNzurZFhmJFYp bmNvbnRccGduZGVjXHBsYW luXHBsYWluXGYwXGZzMjRc cChiuDbnpW8vIvNkZiTkYC puFO0uUYMdM8prxAFhQHEf STYxF6adTeBhhZ0uaTdhID xmczIwIEFtcHVsbGEgIGJp q4KeuZayWEY3 GROSS DESCRIPTION (test z9zxbSTcOPJfjTRpDiDtTE code = 3366) KiEJDgu9efQJCrvVEdPaWd MzNcZnRuYmpcdWMxXGRlZm Lay4gzj937hPBqx0xoVCVy NpM4cNPcVRCyfMRdV254OJ UfOUzsf4mgf8LfGRQhzMKs q5C5SUIYvfubmKx6oCakD7 6iu1B7BywfL5yuJLUlMTuy ZWKqXDnccMYhZCY9VTXxKF K4GVjmuiGxwnK4VTsrlXDw PoI1USj8g5bkpHcnGPFgQW A0a3suJErjxiSgQK7xoy8k uNm3s9dahjNrUJOiCENjvJ SJUSHjV2NnyQukTv1weDe2 uBuyWhxpOEN6Omr6FV7ytg 00mcl4pHlgTLWnvcjpXhQ3 GZhmLEAwjhraMMu0OMvpVD JnbDcyMFxtYXJncjcyMFxt YXJndDcyMFxtYXJnYjcyMF yfRFZwAPJ9OEnaa009SRP2 BPxqn0sgi3gmtJZnNqt0XV NoUnNzKlbpESyrt4Xdk5sv EWLjtb9gOEC4gVBfvGmcc1 Z3hVWjPHVnuEXrviPiSUYp HtS0CDzeNC8vcs22UAHdWT Y0yd5xsVXfrJuasgGxqOEs SFlmT7SsXCKig901ZQTqE5 JxOFIkk8A6yfReDlSeUSSy bWO5nvK2LQOmIMs4zDBbqb Q1nzHgbLFaG3ywuK03ObWv iFWoN0JpqA42QkQtrTMkN2 NjzV23QaGfcFHzW5IixH81 ErJqvCNdPLEkpYYkLp4ybC TxxJXsn1FsbSFkPUfsD34y e480ZTExthVpT1dcmDCurb xwbGFpblxmMFxmczIwXHFs XHBsYWluXGYwXGZzMjBccG xqzU2vYyNjOrBhZUYXBYMr lARpLMJuysGov9QmSRxrsd BsYWJlbGVkIHdpdGggdGhl XCHmzVdpvyBtrxSkLA3oRB IgE8Ail0Eei57rgrWaOmFr LHTkHMZvJN4szSxkFIXnnN FbQNZgLhDyS64daFDgUBWl NxTieMyen4DlCMKiXFugVN 87OUzkjOSnBPbfQQG3Lq6t cNIaBZQaskO7q4MaQUzgVQ MkPwIcX9treHglWEQpat7= MICROSCOPIC DESCRIPTION g2bquNOxHTEpzLXvSxIrGY (test code = 3371) QvRRXtm0egSBHyrLGxRvYf MzNcZnRuYmpcdWMxXGRlZm Wek4ovu092zDQwq5guGABr XiP9rDBeFXQzsHIrR798u0 aaq6daihLcbJO1SZReZIO8 FAgwdwQudhS1LCrxaACdDk B7NVaieuWoUGrzmgHpmtHv Xtq1EQKtX229BUU9pQkxt2 bcLAG4DBBfAGLtBaXjUu3g bOZgQ910MCDwXINTYCElaR a1XIWeeqZephBlcKPQg574 D582l8ccEQGfkbFfiWoCea egc1dwE130JZVjxTBdgaGn GaSoLMCfzPSjaDT5ISFvRJ 0wbarfLzFhWW2pksvwShGi TF1xzkx8OeGzIH0uiunfCk MbDAanJYMczlbaJUCos4Pv pzsnXP3cI5Hzh9F3tY6jvM IcJVOhuFXrUgMyKLDhjj7w xZCsFDhtp5VoVPD4fzN8oD PtySNqUUDoWW07Rckyj4Rk XxfgMVF7QEHpyeHop2Rgi6 liFyTuifMoL6ffJ9VcJDFy WIHpAVEzVwGfocApd7Puz3 HpoRJwgGu0q5puUABqCKZd qTeyi1czFPW1OHVpL1Y1rT Bmd8ooNYwtFXSiyDV1jxxi SAhoMYEpbrI1ttxbPTmmYM IxpBL3ioykWStgYAToXsS0 fzsyHKikHXIpDCV1SEjnj9 95TER7XWlbGtjsMKsvKJTn bmNvbnRccGduZGVjXHBsYW luXHBsYWluXGYwXGZzMjRc iZvxhCayeG7yHpLdOsNjLX tsVW2wLGGiR2xrjDEwOXXy NGXmH0paQzIgiL6oqWzxPJ fhesCaKW2cV3Dew5JizJlc NQQ4IN5efhU8jC7zTEtcRP XpylSreb1iBVXmmyFvrJlo IGZpbmRpbmdzIGFyZSBpbm HyhfYnhdB7UHDhyU2lpVpw TORdWRiik9Y5sKCorLdsXF 3pYWZxkjIMlG22bt8wyLXe ntCpj5KvlHMvDSIyo3ccUI Pvn1jsDTK9kLAhECU1wHSi g0Vqq86vsCZ8rSDxfl5vrW FyXHBhclxwYXJ9 SPECIAL STUDIES (test p6tloHTtEWEmd5zrMHQsrE code = 3376) FuZzEwMzNcZnRuYmpcdWMx MGdgkaPkULsil2WgJ4OqYr AwMFxhbnNpXGRlZmxhbmcx DPRpWUT5hfWdZNPhRNiqVC QlRRchSk3mdOWudGqfWxCc PMOmp3hjbiKKxumjrHp1y3 dhJVVaIoN8xGUwYViqH4do ztZoeUFoS7YxmWVprTe0v5 qnFtBeYqR3vYFxAQybM1wu trAtjPTtOWXsUMs5xX53JR OwhN6vbQQjAPgdmsYmBgU5 YSelXHWoRcK1FREasZFxRN SdQ0jnDRHxHPamKNWhNKei yDAkWIK7xCivj6Z9kYEamE FijClmDqSoUtMcQjYRt9Fc WPb1iSojE2DcPPBpLuR0xT QgUGFyYWdyYXBoIEZvbnQ7 xVkhiuDlg02heYToCSZaVI ZlOsRawRmeIKTfMJPQr6Lb fMxeAWF7aFq7rQpoZeiuPH N1Uod9JT2rvr54hod3bObv NWBpjuvwAoQ3SDrpZJWjqc fdPXv0DApsXUDlwYO1LFKr hRNrC5QiEKLjHE7yrcc6EC D3BIiuPMLpMiI0IIBupSBu TGUygMdbTIobv571ZAB2Lg CxPQ7tH3Kue8U2fW4oaXGh GPOyaJCwUtQyOPOkvk9edD AqEIxwv2GnBEP2ywG5zYVp eYLsEUWoIH21Trbdo0LhOp qvj0QyW93soDO3DJvtq5ha BE9dDsB4ueCnVQqvu9qnfT 8cJkW3TIxwTT5cBP3yYVAt dH0zfmgmXZVfMjNajjsbTE ZjbNjaqxTmDn1ueApyUET1 PLcfD1zgiQ5fDgE8GWhjM4 anbJ3eMDf3YNsvsPF4YOOy nL8iCH7zijcps4xsODwcQY qhVTTzphF4ntP4DZJtgMNx M6WpvO5cMPKvFN8nlynyk4 yfBZL6BQfvTMXbBIY2QwFy YVKdr5Qlwmm8SwFsh8QgdP IfHOszE45we124NJDodgXt C0ztrJMlmcerzDSqyrybEK owzzA5LPJjXPHyVWwuOLIe XGZzMjJcbGFuZzEwMzNcaG ljaFxmMVxkYmNoXGYxXGxv Z5wkZtNwU8CmKOBnAlCoRE yrXFwskJGtsXSqrNE7gI4u AK2aFKFmgLGeK6JqFMFocw LbaDNwAAK4dPHvzSMaJB4c ADasmPRds8zmd0WnG6iidJ ibqWI7AE9yIQUnHFLmPNtq q9BwkR7gCgqlnSHmlrnjMB xmczIyXGxhbmcxMDMzXGhp G9odFbUlEMKqoPhvMJhtm3 NoXGYxXGNmMlxmczIyXGx0 cmNoXHBhclxwYXJccGxhaW 9gNsDhKkVaWtlbJK1dZUWy S4oviRInHDTuWDPlZ6fzYm TguD2xxMorXYsbByJhCsAc IvLZd148ig1uRYAxfKMtvi QRlGRtwH2vXDsaVQxiCYwe jLTqCZalc7dlXNQxq4a6iG MxQIBsrqDqx6gtVTtjrwUq KELjgVTsfGFxMUXgz94kAS zjbEzlpWspPENrx3ZgnRxk h7EzDxRbBTdwm3OvO82ohL JvbCBzbGlkZXMgcnVuIGFs u90ye3ckANHuJfK7aPYqsU Y3gNNqjOAjc7IopAzcKTGi o8bbNHUzsx2rgcqokOJve3 AdcS3qsopaRPimcOIsphMn BSUkx5n7wGRcWVEcHCWrXK zqaTc4DPIfk125jc1lvgB4 kKQfXLA0MCupEVNlLUZzea UgZXZhbHVhdGVkXHBsYWlu XGYxXGZzMjJcFuZzEwMz NcaGljaFxmMVxkYmNoXGYx WLpeU8fwXkIqQ0BdRGUfQb FwwXPzZ0ygfBZvMLIxBZyp XGYxXGZzMjJcbGFuZzEwMz NcaGljaFxmMVxkYmNoXGYx UZmxT0coXoAzK1KvGDRbTa IgIFxwbGFpblxmMVxmczIy RQxmwvpxAQOxSHvxP9fuQz TlYVHdySopOTtis3JiLGXz EHTqPfgszzIfBKj5fiZcJV BhclxwbGFpblxmMVxmczIy QLqpgrlwZAHeGGqbY4qmFl QeFTXzxCyiPIdlq5HwJMTz XGNmMlxmczIyIEltbXVub2 glg4WqG4rrgQpcwXL1PUNx O5dcoCShaXV9WDY0lS2mVP buldNvQTJpp0FbKOFkVDJi HcO2dV5cRIY2QrLZjFvvMA BsYWluXGYxXGZzMjJcbGFu ZzEwMzNcaGljaFxmMVxkYm HcBEVgOXbwO0vsEeIeW6Yj JNCjXfUbpXymEXxoEKd9Zc xwbGFpblxmMVxmczIyXGxh afdnDWNjIKbaC8ueSuIiSU SmiNxjSOuth4SqBUVkZQVz MlxmczIyIHMgTWVkaWNhbC MKJN13XZZkDRCceJlmgW3j lLCXJYKcvxW7g5H0HBbkRI XzSRo6JAfggwWaGLGiwI8b RKQwGW0eALf7khIyINGjy5 AwBF0mSEKgnLEwNLI7UEQx m7KvZ2Xmm3PcHABaQRZfwz 1suzWqPpPByBJqTPSkjc40 RXNoMR7tF8jbZTScWUXbrj YbxLTsh9NnXPPsyID4pEAr BO5OJlSNb17xQAIzIUFUdx PaTRGluKenbMC7wdH0pU4k LiBUaGUgRkRBIGhhcyBkZX Tfhr8hiiPlMTWlPNVdh1Vi uOTtgTOosgPgR4Osv5DfRX Iplv49OUdseHQalk92MH6d J8Rfj4BndV5aBVqrPMOkx2 DpkGOsbYSoDPPwn8HlE6tx ifckAVgxpQXmaG8fGOZjBW p2HITsv8DuGLSlg7KvFqIg vmBzDERlTAKsJFQixH95LW C6kZnauImowoHsCS7rJWHh rmTmLBFiGUCtuC4aEKvcbo YuEIYggdX3u9G8IVmkYJGg wiGyGveeHUD1seXdusX3iH YhR7kcvasxOTkaUDOwt4Ic gM9pfCVTeTNqb9CntXKnsK YOuJFgRD0vzyMiTB0gQFA6 ODggKENMSUEtODgpIGFzIH I4KWgjNgzqWPR1nkCjUJKs v1JgNGzaN1xrH91baQpdvB a8wROxsSuhgNEnrOJpIFHp kyD0g2F7EWLem4XjjqgsRP BsYWluXGYyXGZzMjJcbGFu ZzEwMzNcaGljaFxmMlxkYm RaPOVeHBhjX7xdWlFxWuPn HvkkUIQ8nA== [id number] 14:35:00Surgical Pathology Report Case: [id number] Authorizing Provider: Shmuel Ramachandran Collected: 01/06/2019 1521 MD Clary OrderingLocation: [facility] Received: 01/07/2019 0812 Service Pathologist: Haley Blanca MD Specimen: Ampulla, biospy DUODENUM, AMPULLA, BIOPSY- INVASIVE ADENOCARCINOMA Signing Pathologist Direct Phone Line: [phone] by Haley Blanca MD on 01/08/2019 at 2:35 [id number], [id number] and postop diagnosis: pancreatic massAmpulla biopsyReceived in formalin labeled with the patient's name, accession number and "ampulla" is a 0.1 cm lamb soft tissue fragment which is submitted in toto in A1. CG/pl Microscopic examination is performed and the findings are incorporated in the diagnostic line. Immunostain for p53 shows a wild type expression pattern.The interpretation of this case included the use of immunohistochemistry or special stains.Control Slides Examined: In-house known positive controls were evaluated along with the test tissue. These control slides run alongside of the patients sample show appropriate staining. Internal positive and negative controls when available are evaluated Immunohistochemistry technical testing was performed at [facility], Pathology Laboratory where it wasdeveloped and its performance characteristics were determined. It has not been cleared or approved by the U.S. Food and Drug Administration. The FDA has determined that such clearance or approval is not necessary. The test is used for clinical purposes. It should not be regarded as investigational or for research. This laboratory is certified under the Clinical Laboratory Improvement Amendments of 1988 (CLIA-88) as qualified to perform high complexity clinical laboratory testing.CBC W/PLT COUNT & AUTO [id number] 14:34:00 Test Item Value Reference Range Interpretation Comments WHITE BLOOD CELL COUNT 11.7 K/ L 3.5-10.5 H (BEAKER) (test code = 775) RED BLOOD CELL COUNT 2.39 M/ L 4.63-6.08 L (BEAKER) (test code = 761) HEMOGLOBIN (BEAKER) 7.9 GM/DL 13.7-17.5 L CBC RESU LTS WERE (test code = 410) OBTAINED B Y WASH AND WARMING AT 37 DEGREES HEMATOCRIT (BEAKER) 20.6 % 40.1-51.0 L (test code = 411) MEAN CORPUSCULAR VOLUME 86.2 fL 79.0-92.2 (BEAKER) (test code = 753) MEAN CORPUSCULAR 33.1 pg 25.7-32.2 H HEMOGLOBIN (BEAKER) (test code = 751) MEAN CORPUSCULAR 37.3 GM/DL 32.3-36.5 H CBC RESULTS WERE HEMOGLOBIN CONC OBTAINED BY WASH (BEAKER) (test code = AND WA RMING AT 37 752) DEGREES RED CELL DISTRIBUTION 20.7 % 11.6-14.4 H WIDTH (BEAKER) (test code = 412) PLATELET COUNT (BEAKER) 163 K/CU MM 150-450 (test code = 756) MEAN PLATELET VOLUME 10.4 fL 9.4-12.4 (BEAKER) (test code = 754) NUCLEATED RED BLOOD 0 /100 WBC 0-0 CELLS (BEAKER) (test code = 413) (CELLAVISION MANUAL DIFF)2019-01-08 14:34:00 Test Item Value Reference Range Interpretation Comments NEUTROPHILS - REL 88 % (CELLAVISION)(BEAKER) (test code = 2816) LYMPHOCYTES - REL 7 % (CELLAVISION)(BEAKER) (test code = 2817) MONOCYTES - REL 3 % (CELLAVISION)(BEAKER) (test code = 2818) EOSINOPHILS - REL 1 % (CELLAVISION)(BEAKER) (test code = 2819) MYELOCYTES - REL 2 % 0-0 H (CELLAVISION)(BEAKER) (test code = 2822) NEUTROPHILS - ABS 10.30 K/ul 1.78-5.38 H (CELLAVISION)(BEAKER) (test code = 2830) LYMPHOCYTES - ABS 0.82 K/ul 1.32-3.57 L (CELLAVISION)(BEAKER) (test code = 2831) MONOCYTES - ABS 0.35 K/uL 0.30-0.82 (CELLAVISION)(BEAKER) (test code = 2832) EOSINOPHILS - ABS 0.12 K/uL 0.04-0.54 (CELLAVISION)(BEAKER) (test code = 2834) MYELOCYTES-ABS 0.23 K/uL 0.00-0.00 H (CELLAVISION)(BEAKER) (test code = 2837) TOTAL COUNTED (BEAKER) (test code 100 = 1351) SMUDGE CELLS (BEAKER) (test code Present = 1371) GIANT PLATELETS (BEAKER) (test Present code = 313) HYPOCHROMIA (BEAKER) (test code = 3+ many 963) ANISOCYTOSIS (BEAKER) (test code 3+ many = 961) MICROCYTES (BEAKER) (test code = 1+ few 965) MACROCYTES (BEAKER) (test code = 3+ many 964) POIKILOCYTES (BEAKER) (test code 2+ moderate = 966) TARGET CELLS (BEAKER) (test code 2+ moderate = 480) SCHISTOCYTES (BEAKER) (test code 1+ few = 765) BASOPHILIC STIPPLING (BEAKER) Present (test code = 473) PLATELET CONCENTRATION Adequate (CELLAVISION)(BEAKER) (test code = 3438) Received comment: User comments: Slide comments:COMPREHENSIVE METABOLIC PANEL 2019-01-08 06:33:00 Test Item Value Reference Range Interpretation Comments TOTAL PROTEIN 5.1 gm/dL 6.0-8.3 L (BEAKER) (test code = 770) ALBUMIN (BEAKER) 2.4 g/dL 3.5-5.0 L (test code = 1145) ALKALINE PHOSPHATASE 239 U/L 40-150 H (BEAKER) (test code = 346) BILIRUBIN TOTAL 24.2 mg/dL 0.2-1.2 H (BEAKER) (test code = 377) SODIUM (BEAKER) (test 126 meq/L 136-145 L code = 381) POTASSIUM (BEAKER) 3.4 meq/L 3.5-5.1 L (test code = 379) CHLORIDE (BEAKER) 101 meq/L 98-107 (test code = 382) CO2 (BEAKER) (test 21 meq/L 22-29 L code = 355) BLOOD UREA NITROGEN 25 mg/dL 7-21 H (BEAKER) (test code = 354) CREATININE (BEAKER) 1.43 mg/dL 0.57-1.25 H (test code = 358) GLUCOSE RANDOM 107 mg/dL 70-105 H (BEAKER) (test code = 652) CALCIUM (BEAKER) 8.3 mg/dL 8.4-10.2 L (test code = 697) AST (SGOT) (BEAKER) 159 U/L 5-34 H (test code = 353) ALT (SGPT) (BEAKER) 112 U/L 6-55 H (test code = 347) EGFR (BEAKER) (test 57 mL/min/1.73 ESTIMA MARCIN GFR IS code = 1092) sq m NOT ACCURATE CREATININE CLEARANCE IN PREDICTING GLOMERULAR FILTRATION RATE . ESTIMATED GFR I S NOT APPLICABLE FOR DIALYSIS PATIEN TS. Specimen markedly ictericCYTOLOGY [id number] 11:01:00 Test Item Value Reference Range Interpretation Comments Cytology (test code = See Separate Report [id number]) [facility] [id number] 11:01:00 Test Item Value Reference Range Interpretation Comments CYTOLOGY RESULT POINTER See Separate Report (BEAKER) (test code = 0992) CBC W/PLT COUNT & AUTO [id number] 10:36:00 Test Item Value Reference Range Interpretation Comments WHITE BLOOD CELL COUNT (BEAKER) 10.3 K/ L 3.5-10.5 (test code = 775) RED BLOOD CELL COUNT (BEAKER) 2.25 M/ L 4.63-6.08 L (test code = 761) HEMOGLOBIN (BEAKER) (test code = 7.3 GM/DL 13.7-17.5 L 410) HEMATOCRIT (BEAKER) (test code = 19.5 % 40.1-51.0 L 411) MEAN CORPUSCULAR VOLUME (BEAKER) 86.7 fL 79.0-92.2 (test code = 753) MEAN CORPUSCULAR HEMOGLOBIN 32.4 pg 25.7-32.2 H (BEAKER) (test code = 751) MEAN CORPUSCULAR HEMOGLOBIN CONC 37.4 GM/DL 32.3-36.5 H (BEAKER) (test code = 752) RED CELL DISTRIBUTION WIDTH 21.0 % 11.6-14.4 H (BEAKER) (test code = 412) PLATELET COUNT (BEAKER) (test 161 K/CU MM 150-450 code = 756) MEAN PLATELET VOLUME (BEAKER) 10.7 fL 9.4-12.4 (test code = 754) NUCLEATED RED BLOOD CELLS 0 /100 WBC 0-0 (BEAKER) (test code = 413) NEUTROPHILS RELATIVE PERCENT 82 % (BEAKER) (test code = 429) LYMPHOCYTES RELATIVE PERCENT 8 % (BEAKER) (test code = 430) MONOCYTES RELATIVE PERCENT 7 % (BEAKER) (test code = 431) EOSINOPHILS RELATIVE PERCENT 1 % (BEAKER) (test code = 432) BASOPHILS RELATIVE PERCENT 0 % (BEAKER) (test code = 437) NEUTROPHILS ABSOLUTE COUNT 8.44 K/ L 1.78-5.38 H (BEAKER) (test code = 670) LYMPHOCYTES ABSOLUTE COUNT 0.81 K/ L 1.32-3.57 L (BEAKER) (test code = 414) MONOCYTES ABSOLUTE COUNT (BEAKER) 0.76 K/ L 0.30-0.82 (test code = 415) EOSINOPHILS ABSOLUTE COUNT 0.06 K/ L 0.04-0.54 (BEAKER) (test code = 416) BASOPHILS ABSOLUTE COUNT (BEAKER) 0.01 K/ L 0.01-0.08 (test code = 417) IMMATURE GRANULOCYTES-RELATIVE 2 % 0-1 H PERCENT (BEAKER) (test code = 2801) ICTERIC PLASMA, SALINE REPLACEMENT WAS PERFORMED AND ADDITIONAL WARMING AT 37 DEGREES WAS NEEDED TOGET A RESULTHEPATIC FUNCTION [id number] 08:43:00 Test Item Value Reference Range Interpretation Comments TOTAL PROTEIN (BEAKER) (test code 4.9 gm/dL 6.0-8.3 L = 770) ALBUMIN (BEAKER) (test code = 2.3 g/dL 3.5-5.0 L 1145) BILIRUBIN TOTAL (BEAKER) (test 24.5 mg/dL 0.2-1.2 H code = 377) BILIRUBIN DIRECT (BEAKER) (test 18.4 mg/dL 0.1-0.5 H code = 706) ALKALINE PHOSPHATASE (BEAKER) 231 U/L 40-150 H (test code = 346) AST (SGOT) (BEAKER) (test code = 172 U/L 5-34 H 353) ALT (SGPT) (BEAKER) (test code = 114 U/L 6-55 H 347) Specimen markedly ictericBASIC METABOLIC [id number] 06:38:00 Test Item Value Reference Range Interpretation Comments SODIUM (BEAKER) 128 meq/L 136-145 L (test code = 381) POTASSIUM (BEAKER) 3.7 meq/L 3.5-5.1 (test code = 379) CHLORIDE (BEAKER) 102 meq/L 98-107 (test code = 382) CO2 (BEAKER) (test 21 meq/L 22-29 L code = 355) BLOOD UREA NITROGEN 26 mg/dL 7-21 H (BEAKER) (test code = 354) CREATININE (BEAKER) 1.31 mg/dL 0.57-1.25 H (test code = 358) GLUCOSE RANDOM 82 mg/dL 70-105 (BEAKER) (test code = 652) CALCIUM (BEAKER) 8.2 mg/dL 8.4-10.2 L (test code = 697) EGFR (BEAKER) (test 63 mL/min/1.73 ESTIMA MARCIN GFR IS code = 1092) sq m NOT ACCURATE CREATININE CLEARANCE IN PREDICTING GLOMERULAR FILTRATION RATE . ESTIMATED GFR I S NOT APPLICABLE FOR DIALYSIS PATIEN TS. Specimen markedly ictericU/S, RENAL, [id number] 22:38:00Reason for exam:->AKIFINAL REPORT Ultrasound of the Kidneys Clinical History: TESS Discussion: Sonographic evaluation of the kidneys was performed. There is no prior study for direct comparison. Right kidney: 9.6 x 5.9 x 4.8 cm, with cortical thickness of 1.2 cm. Mildly increased cortical echogenicity. 7.6 x 7.2 x 6.3 cm simple cyst in the lower pole. No shadowing calculus. No hydronephrosis. Left kidney: 10.1 x 5.7 x 4 cm, with cortical thickness of 1.1 cm. Mildly increased cortical echogenicity. 5.9 x 4.7 x 5.2 cm simple cyst in the lower pole. No shadowing calculus. No hydronephrosis. L imited doppler evaluation of bilateral main renal arteries and veins demonstrate patency. Bladder:Markedly distended but thin walled with a volume of 986 cc. A postvoid residual was not recorded as the patient was unable to void. Miscellaneous: Trace free fluid in Rees's pouch. Impression: Mildly echogenic bilateral kidneys in keeping with medical renal disease.Simple bilateral renal cysts.Markedly distended urinary bladder. Correlate clinically for urinary retention.Trace free fluid in Rees's pouch. Signed: Elvin Willson MDReport Verified Date/Time: 01/06/2019 22:38:44 US renal complete 2019-01-06 22:38:00Interface, External Ris In - 01/06/2019 10:41 PM CDTFINAL REPORT Ultrasound of the Kidneys Clinical History: TESS Discussion: Sonographic evaluation of the kidneys was performed.There is no prior study for direct comparison. Right kidney: 9.6 x 5.9 x 4.8 cm, with cortical thickness of 1.2 cm. Mildly increased cortical echogenicity. 7.6 x 7.2 x 6.3 cm simple cyst in the lower pole. No shadowing calculus. No hydronephrosis. Left kidney: 10.1 x 5.7 x 4 cm, with cortical thickness of 1.1 cm. Mildly increased cortical echogenicity. 5.9 x 4.7 x 5.2 cm simple cyst in the lower pole. No shadowing calculus. No hydronephrosis. Limited doppler evaluation of bilateral main renal arteries and veins demonstrate patency. Bladder: Markedly distended but thin walled with a volumeof 986 cc. A postvoid residual was not recorded as the patient was unable to void. Miscellaneous: Tra ce free fluid in Rees's pouch. Impression: Mildly echogenic bilateral kidneys in keeping with medical renal disease.Simple bilateral renal cysts.Markedly distended urinary bladder. Correlate clinically for urinary retention.Trace free fluid in Rees's pouch. Signed: Elvin [place] Verified Date/Time: 01/06/2019 22:38:44 [facility] 16:13:00Reason for exam:->pancreas massFINAL REPORT Intraoperative fluoroscopy. CLINICAL HISTORY: pancreas mass. FINDINGS: Eight fluoroscopically acquired images were acquired by the referring physician. An intraoperative verbal report was not requested. Fluoroscopy was not performed by the undersigned. Fluoroscopy time: 81 seconds. Eight images. Signed: Vita Lujan MDReport Verified Date/Time: 01/06/2019 16:13:10 Reading Location: [facility] B1 [id number] Consult Reading Room Osmolality, [id number] 13:44:00 Test Item Value Reference Range Interpretation Comments Osmolality Serum (test code = 265 275- 295 mOsm/kg L 2692-2) Lab Interpretation (test code = Abnormal 30023-1) [facility]OS[facility], [id number] 13:44:00 Test Item Value Reference Range Interpretation Comments OSMOLALITY, SERUM (BEAKER) (test 265 mOsm/kg 275-295 L code = 615) CBC W/PLT COUNT & AUTO [id number] 08:33:00 Test Item Value Reference Range Interpretation Comments WHITE BLOOD CELL COUNT (BEAKER) 9.5 K/ L 3.5-10.5 (test code = 775) RED BLOOD CELL COUNT (BEAKER) 2.64 M/ L 4.63-6.08 L (test code = 761) HEMOGLOBIN (BEAKER) (test code = 8.5 GM/DL 13.7-17.5 L 410) HEMATOCRIT (BEAKER) (test code = 22.5 % 40.1-51.0 L 411) MEAN CORPUSCULAR VOLUME (BEAKER) 85.2 fL 79.0-92.2 (test code = 753) MEAN CORPUSCULAR HEMOGLOBIN 32.2 pg 25.7-32.2 (BEAKER) (test code = 751) MEAN CORPUSCULAR HEMOGLOBIN CONC 37.8 GM/DL 32.3-36.5 H (BEAKER) (test code = 752) RED CELL DISTRIBUTION WIDTH 19.8 % 11.6-14.4 H (BEAKER) (test code = 412) PLATELET COUNT (BEAKER) (test 259 K/CU MM 150-450 code = 756) MEAN PLATELET VOLUME (BEAKER) 10.2 fL 9.4-12.4 (test code = 754) NUCLEATED RED BLOOD CELLS 0 /100 WBC 0-0 (BEAKER) (test code = 413) NEUTROPHILS RELATIVE PERCENT 75 % (BEAKER) (test code = 429) LYMPHOCYTES RELATIVE PERCENT 11 % (BEAKER) (test code = 430) MONOCYTES RELATIVE PERCENT 9 % (BEAKER) (test code = 431) EOSINOPHILS RELATIVE PERCENT 1 % (BEAKER) (test code = 432) BASOPHILS RELATIVE PERCENT 0 % (BEAKER) (test code = 437) NEUTROPHILS ABSOLUTE COUNT 7.15 K/ L 1.78-5.38 H (BEAKER) (test code = 670) LYMPHOCYTES ABSOLUTE COUNT 1.04 K/ L 1.32-3.57 L (BEAKER) (test code = 414) MONOCYTES ABSOLUTE COUNT (BEAKER) 0.89 K/ L 0.30-0.82 H (test code = 415) EOSINOPHILS ABSOLUTE COUNT 0.12 K/ L 0.04-0.54 (BEAKER) (test code = 416) BASOPHILS ABSOLUTE COUNT (BEAKER) 0.02 K/ L 0.01-0.08 (test code = 417) IMMATURE GRANULOCYTES-RELATIVE 3 % 0-1 H PERCENT (BEAKER) (test code = 2801) COMPREHENSIVE METABOLIC [id number] 06:59:00 Test Item Value Reference Range Interpretation Comments TOTAL PROTEIN 5.7 gm/dL 6.0-8.3 L (BEAKER) (test code = 770) ALBUMIN (BEAKER) 2.7 g/dL 3.5-5.0 L (test code = 1145) ALKALINE PHOSPHATASE 258 U/L 40-150 H (BEAKER) (test code = 346) BILIRUBIN TOTAL 27.7 mg/dL 0.2-1.2 H (BEAKER) (test code = 377) SODIUM (BEAKER) (test 126 meq/L 136-145 L code = 381) POTASSIUM (BEAKER) 3.7 meq/L 3.5-5.1 (test code = 379) CHLORIDE (BEAKER) 98 meq/L 98-107 (test code = 382) CO2 (BEAKER) (test 20 meq/L 22-29 L code = 355) BLOOD UREA NITROGEN 23 mg/dL 7-21 H (BEAKER) (test code = 354) CREATININE (BEAKER) 1.35 mg/dL 0.57-1.25 H (test code = 358) GLUCOSE RANDOM 86 mg/dL 70-105 (BEAKER) (test code = 652) CALCIUM (BEAKER) 8.6 mg/dL 8.4-10.2 (test code = 697) AST (SGOT) (BEAKER) 161 U/L 5-34 H (test code = 353) ALT (SGPT) (BEAKER) 123 U/L 6-55 H (test code = 347) EGFR (BEAKER) (test 61 mL/min/1.73 ESTIMA MARCIN GFR IS code = 1092) sq m NOT ACCURATE CREATININE CLEARANCE IN PREDICTING GLOMERULAR FILTRATION RATE . ESTIMATED GFR I S NOT APPLICABLE FOR DIALYSIS PATIEN TS. Specimen markedly ictericOsmolality, [id number] 20:02:00 Test Item Value Reference Range Interpretation Comments Osmolality, Ur (test code = 2695-5) 443 40-1,400 mOsm/kg Lab Interpretation (test code = Normal 60261-5) [facility]OSMOL[facility], [id number] 20:02:00 Test Item Value Reference Range Interpretation Comments OSMOLALITY URINE (BEAKER) (test 443 mOsm/kg 40-1,400 code = 614) Urea Nitrogen, random [id number] 19:57:00 Test Item Value Reference Range Interpretation Comments Urea Nitrogen, Ur 500 mg/dL (test code = 3095-7) JOHN (test code = Reference Range: No JOHN) Normals [facility] HospitalCREATININE, RANDOM [id number] 19:57:00 Test Item Value Reference Range Interpretation Comments CREATININE URINE (BEAKER) (test 61.5 mg/dL code = 375) Reference Range: No NormalsSODIUM, RANDOM [id number] 19:57:00 Test Item Value Reference Range Interpretation Comments SODIUM URINE (BEAKER) (test code = 93 meq/L 243) Reference Range: No NormalsUREA NITROGEN, RANDOM [id number] 19:57:00 Test Item Value Reference Range Interpretation Comments UREA NITROGEN URINE (BEAKER) (test 500 mg/dL code = 538) Reference Range: No NormalsBASIC METABOLIC [id number] 19:09:00 Test Item Value Reference Range Interpretation Comments SODIUM (BEAKER) 124 meq/L 136-145 L (test code = 381) POTASSIUM (BEAKER) 3.5 meq/L 3.5-5.1 (test code = 379) CHLORIDE (BEAKER) 98 meq/L 98-107 (test code = 382) CO2 (BEAKER) (test 18 meq/L 22-29 L code = 355) BLOOD UREA NITROGEN 24 mg/dL 7-21 H (BEAKER) (test code = 354) CREATININE (BEAKER) 1.31 mg/dL 0.57-1.25 H (test code = 358) GLUCOSE RANDOM 95 mg/dL 70-105 (BEAKER) (test code = 652) CALCIUM (BEAKER) 8.1 mg/dL 8.4-10.2 L (test code = 697) EGFR (BEAKER) (test 63 mL/min/1.73 ESTIMA MARCIN GFR IS code = 1092) sq m NOT ACCURATE CREATININE CLEARANCE IN PREDICTING GLOMERULAR FILTRATION RATE . ESTIMATED GFR I S NOT APPLICABLE FOR DIALYSIS PATIEN TS. Please page [facility] renal fellow with resultsSpecimen markedly ictericOSMOLALITY, [id number] 13:18:00 Test Item Value Reference Range Interpretation Comments OSMOLALITY URINE (BEAKER) (test 412 mOsm/kg 40-1,400 code = 614) URINALYSIS W/ [id number] 12:35:00 Test Item Value Reference Range Interpretation Comments COLOR (BEAKER) (test code = 470) Brown CLARITY (BEAKER) (test code = 469) Hazy SPECIFIC GRAVITY UA (BEAKER) (test 1.010 1.001-1.035 code = 468) PH UA (BEAKER) (test code = 467) 6.0 5.0-8.0 PROTEIN UA (BEAKER) (test code = Negative Negative 464) GLUCOSE UA (BEAKER) (test code = Negative Negative 365) KETONES UA (BEAKER) (test code = Negative Negative 371) BILIRUBIN UA (BEAKER) (test code = Positive Negative A 462) BLOOD UA (BEAKER) (test code = Trace Negative A 461) NITRITE UA (BEAKER) (test code = Negative Negative 465) LEUKOCYTE ESTERASE UA (BEAKER) Negative Negative (test code = 466) UROBILINOGEN UA (BEAKER) (test 0.2 mg/dL 0.2-1.0 code = 463) RBC UA (BEAKER) (test code = 519) 0 /HPF WBC UA (BEAKER) (test code = 520) 0 /HPF BACTERIA (BEAKER) (test code = Occasional 517) GRANULAR CASTS (BEAKER) (test code 17 /LPF = 515) SOURCE(BEAKER) (test code = 2700) CBC W/PLT COUNT & AUTO [id number] 12:02:00 Test Item Value Reference Range Interpretation Comments WHITE BLOOD CELL COUNT 8.0 K/ L 3.5-10.5 (BEAKER) (test code = 775) RED BLOOD CELL COUNT 2.42 M/ L 4.63-6.08 L (BEAKER) (test code = 761) HEMOGLOBIN (BEAKER) 8.0 GM/DL 13.7-17.5 L Warmed a t 37 and (test code = 410) washed spe cimen HEMATOCRIT (BEAKER) 20.5 % 40.1-51.0 L Warmed a t 37 and (test code = 411) washed spe cimen MEAN CORPUSCULAR VOLUME 81.4 fL 79.0-92.2 (BEAKER) (test code = 753) MEAN CORPUSCULAR 32.6 pg 25.7-32.2 H HEMOGLOBIN (BEAKER) (test code = 751) MEAN CORPUSCULAR 39.0 GM/DL 32.3-36.5 H Warmed at 3 7 and HEMOGLOBIN CONC washed speci men (BEAKER) (test code = 752) RED CELL DISTRIBUTION 18.9 % 11.6-14.4 H WIDTH (BEAKER) (test code = 412) PLATELET COUNT (BEAKER) 226 K/CU MM 150-450 (test code = 756) MEAN PLATELET VOLUME 10.4 fL 9.4-12.4 (BEAKER) (test code = 754) NUCLEATED RED BLOOD 0 /100 WBC 0-0 CELLS (BEAKER) (test code = 413) NEUTROPHILS RELATIVE 79 % PERCENT (BEAKER) (test code = 429) LYMPHOCYTES RELATIVE 10 % PERCENT (BEAKER) (test code = 430) MONOCYTES RELATIVE 8 % PERCENT (BEAKER) (test code = 431) EOSINOPHILS RELATIVE 0 % PERCENT (BEAKER) (test code = 432) BASOPHILS RELATIVE 0 % PERCENT (BEAKER) (test code = 437) NEUTROPHILS ABSOLUTE 6.27 K/ L 1.78-5.38 H COUNT (BEAKER) (test code = 670) LYMPHOCYTES ABSOLUTE 0.81 K/ L 1.32-3.57 L COUNT (BEAKER) (test code = 414) MONOCYTES ABSOLUTE 0.64 K/ L 0.30-0.82 COUNT (BEAKER) (test code = 415) EOSINOPHILS ABSOLUTE 0.02 K/ L 0.04-0.54 L COUNT (BEAKER) (test code = 416) BASOPHILS ABSOLUTE 0.01 K/ L 0.01-0.08 COUNT (BEAKER) (test code = 417) IMMATURE 3 % 0-1 H GRANULOCYTES-RELATIVE PERCENT (BEAKER) (test code = 2801) CREATININE, RANDOM [id number] 10:34:00 Test Item Value Reference Range Interpretation Comments CREATININE URINE (BEAKER) (test 63.3 mg/dL code = 375) Reference Range: No NormalsSODIUM, RANDOM [id number] 10:34:00 Test Item Value Reference Range Interpretation Comments SODIUM URINE (BEAKER) (test code = 85 meq/L 243) Reference Range: No NormalsCBC W/PLT COUNT & AUTO [id number] 09:44:00 Test Item Value Reference Range Interpretation Comments WHITE BLOOD CELL COUNT 8.4 K/ L 3.5-10.5 (BEAKER) (test code = 775) RED BLOOD CELL COUNT 2.56 M/ L 4.63-6.08 L (BEAKER) (test code = 761) HEMOGLOBIN (BEAKER) 8.2 GM/DL 13.7-17.5 L Washed a nd warmed (test code = 410) speciemn HEMATOCRIT (BEAKER) 21.8 % 40.1-51.0 L Washed a nd warmed (test code = 411) speciemn MEAN CORPUSCULAR VOLUME 82.4 fL 79.0-92.2 (BEAKER) (test code = 753) MEAN CORPUSCULAR 32.4 pg 25.7-32.2 H HEMOGLOBIN (BEAKER) (test code = 751) MEAN CORPUSCULAR 37.6 GM/DL 32.3-36.5 H Washed and warmed HEMOGLOBIN CONC speciemn (BEAKER) (test code = 752) RED CELL DISTRIBUTION 19.3 % 11.6-14.4 H WIDTH (BEAKER) (test code = 412) PLATELET COUNT (BEAKER) 257 K/CU MM 150-450 (test code = 756) MEAN PLATELET VOLUME 11.0 fL 9.4-12.4 (BEAKER) (test code = 754) NUCLEATED RED BLOOD 0 /100 WBC 0-0 CELLS (BEAKER) (test code = 413) NEUTROPHILS RELATIVE 77 % PERCENT (BEAKER) (test code = 429) LYMPHOCYTES RELATIVE 10 % PERCENT (BEAKER) (test code = 430) MONOCYTES RELATIVE 9 % PERCENT (BEAKER) (test code = 431) EOSINOPHILS RELATIVE 0 % PERCENT (BEAKER) (test code = 432) BASOPHILS RELATIVE 0 % PERCENT (BEAKER) (test code = 437) NEUTROPHILS ABSOLUTE 6.46 K/ L 1.78-5.38 H COUNT (BEAKER) (test code = 670) LYMPHOCYTES ABSOLUTE 0.86 K/ L 1.32-3.57 L COUNT (BEAKER) (test code = 414) MONOCYTES ABSOLUTE 0.71 K/ L 0.30-0.82 COUNT (BEAKER) (test code = 415) EOSINOPHILS ABSOLUTE 0.02 K/ L 0.04-0.54 L COUNT (BEAKER) (test code = 416) BASOPHILS ABSOLUTE 0.01 K/ L 0.01-0.08 COUNT (BEAKER) (test code = 417) IMMATURE 4 % 0-1 H GRANULOCYTES-RELATIVE PERCENT (BEAKER) (test code = 2801) HEPATIC FUNCTION [id number] 08:03:00 Test Item Value Reference Range Interpretation Comments TOTAL PROTEIN (BEAKER) (test code 5.7 gm/dL 6.0-8.3 L = 770) ALBUMIN (BEAKER) (test code = 2.7 g/dL 3.5-5.0 L 1145) BILIRUBIN TOTAL (BEAKER) (test 25.5 mg/dL 0.2-1.2 H code = 377) BILIRUBIN DIRECT (BEAKER) (test 19.4 mg/dL 0.1-0.5 H code = 706) ALKALINE PHOSPHATASE (BEAKER) 259 U/L 40-150 H (test code = 346) AST (SGOT) (BEAKER) (test code = 147 U/L 5-34 H 353) ALT (SGPT) (BEAKER) (test code = 109 U/L 6-55 H 347) Specimen markedly ictericBASIC METABOLIC [id number] 07:59:00 Test Item Value Reference Range Interpretation Comments SODIUM (BEAKER) 121 meq/L 136-145 L (test code = 381) POTASSIUM (BEAKER) 3.7 meq/L 3.5-5.1 (test code = 379) CHLORIDE (BEAKER) 94 meq/L 98-107 L (test code = 382) CO2 (BEAKER) (test 21 meq/L 22-29 L code = 355) BLOOD UREA NITROGEN 27 mg/dL 7-21 H (BEAKER) (test code = 354) CREATININE (BEAKER) 1.58 mg/dL 0.57-1.25 H (test code = 358) GLUCOSE RANDOM 87 mg/dL 70-105 (BEAKER) (test code = 652) CALCIUM (BEAKER) 8.7 mg/dL 8.4-10.2 (test code = 697) EGFR (BEAKER) (test 51 mL/min/1.73 ESTIMA MARCIN GFR IS code = 1092) sq m NOT ACCURATE CREATININE CLEARANCE IN PREDICTING GLOMERULAR FILTRATION RATE . ESTIMATED GFR I S NOT APPLICABLE FOR DIALYSIS PATIEN TS. Specimen markedly ictericPROTHROMBIN [id number] 07:13:00 Test Item Value Reference Range Interpretation Comments PROTIME (BEAKER) (test code = 14.9 seconds 11.9-14.2 H 759) INR (BEAKER) (test code = 370) 1.2 <=5.9 Effective 11/07/2018: PT Reference Range ChangeNew: 11.9-14.2 Previous: 11.7- 14.7RECOMMENDED COUMADIN/WARFARIN INR THERAPY RANGESSTANDARD DOSE: 2.0-3.0 Includes: PROPHYLAXIS for venous thrombosis, systemic embolization; TREATMENT for venous thrombosis and/or pulmonary embolus.HIGH RISK: Target INR is2.5-3.5 for patients wiht mechanical heart valves.B-Type Natriuretic [id number] 10:27:00 Test Item Value Reference Range Interpretation Comments B-Type Natriuretic Peptide (test 9.6 pg/mL 0.0-100.0 N code = 243158) Sed Rate ESR ([place])2016-12-02 01:01:00 Test Item Value Reference Range Interpretation Comments ESR (test code = HESR) 54 mm/Hr 0-9 H Thyroid Stimulating Hormone (TSH)2016-12-01 23:51:00 Test Item Value Reference Range Interpretation Comments TSH (test code = TSH) 0.52 mIU/mL 0.270-4.200 N Comprehensive Metabolic [id number] 23:12:00 Test Item Value Reference Range Interpretation Comments Sodium (test code = 135 mmol/L 135-145 N NA) Potassium (test 3.6 mmol/L 3.5-5.1 N code = K) Chloride (test code 93 mmol/L 98-105 L = CL) Carbon Dioxide 25 mmol/L 22-29 N (test code = CO2) Glucose (test code 91 mg/dL 70-115 N = GLU) Blood Urea Nitrogen 36 mg/dL 8-23 H (test code = BUN) Creatinine (test 2.1 mg/dL 0.7-1.2 H code = CREAT) Calcium (test code 9.5 mg/dL 8.3-10.5 N = CA) Prot Total (test 8.3 g/dL 6.4-8.3 N code = TP) Albumin (test code 3.8 g/dL 3.5-5.2 N = ALB) A/G Ratio (test 0.8 Ratio code = AGRATIO) Globulin (test code 4.5 2.9-3.1 H = GLOB) Bili Total (test 0.4 mg/dL 0.1-0.9 N code = TBIL) Alk Phos (test code 69 U/L 40-129 N = APHOS) AST (test code = 16 U/L 1-40 N AST) ALT (test code = 11 U/L 1-41 N ALT) BUN/Creatinine 17.1 Ratio (test code = BCRATIO) Anion Gap (test 17 mmol/L 7-16 H code = AGAP) Estimated GFR (test 32 eGFR (es timated code = GFR) mL/min/1.73m2 Glomerular Kaz tration Rate) is an est imated value,calculate d from the patient's s rhea creatinine usin g the MDRD equation.I t is NOT the patient 's actual GFR. The eGFR provides a more clinicallyusefu l measure of kidn ey disease than se rum creatinine alone.This calculation radha es sex and race into account, if the informationis provided. If th e race is not provided , and the patient isAfrican-Ameri can, multiply by 1.2 12. If sex is not prov ided, and thepatient is female, multipl y by 0.742. Results for patients <18 ye ars ofage have not been validated by th e MDRD study and danitza d be interpretedwith caution.eGFR Re sult Interpretation: eGFR > or = 60 is in t he Normal RangeeGF R < 60 may mean kidney diseaseeGFR < 1 5 may mean kidney failureRange s recommended by the National Kidney Foundation,http ://nkd ep.nih.gov Lipid [id number] 23:12:00 Test Item Value Reference Range Interpretation Comments Cholesterol (test 101 mg/dL 0-200 N code = CHOL) Triglycerides (test 81 mg/dL 9-200 N code = TRIG) HDL (test code = 45 mg/dL 40-60 N HDL) Chol/HDL (test code 2.2 Ratio 0.0-5.0 N = CHOLPHDL) LDL, Calculated 40 mg/dL 0-130 N (NOTE)RISK O F HEART (test code = LDLC) DISEASEPu blished by [place] Heart AssociationAnal yte Optim al Boderline Increased RiskC HOL <200 200-239 >240TRI G <150 150-199 >200HDL Male: >60 <40HDL Female: >60 <50 LDL < 100 130-15 9 >160 LDL NEAR OPTIMAL IS 100- 129 VLDL (test code = 16 mg/dL 5-40 N VLDL) LDL/HDL (test code = 1 LDLPHDL) CBC with [id number] 22:17:00 Test Item Value Reference Range Interpretation Comments WBC (test code = WBC) 8.3 K/cumm 4.4-10.5 N RBC (test code = RBC) 3.51 M/cumm 4.10-5.70 L Hemoglobin (test code = HGB) 10.6 gm/dL 13.4-17.4 L Hematocrit (test code = HCT) 34.0 % 38.7-52.0 L MCV (test code = MCV) 96.8 fL 80-100 N MCH (test code = MCH) 30.1 pg 27.0-32.5 N MCHC (test code = MCHC) 31.0 g/dL 32.0-37.5 L RDW (test code = RDW) 13.2 % 11.5-14.5 N Platelet Count (test code = 303 K/cumm 140-440 N PLTCT) MPV (test code = MPV) 7.9 fL Diff Method (test code = DIFFM) Auto Neutrophil (test code = NEUT) 75.7 % 36-70 H Lymphocyte (test code = LYMPH) 14.8 % 12-44 N Monocyte (test code = MONO) 7.3 % 0-11 N Eosinophil (test code = EOS) 1.8 % 0-7 N Basophil (test code = BASO) 0.4 % 0-2 N Neutro Abs (test code = ANEUT) 6.3 K/cumm 1.6-7.4 N Lymph Abs (test code = ALYMPH) 1.2 K/cumm 0.5-4.6 N [place] Abs (test code = AMONO) 0.6 K/cumm 0.0-1.2 N Eos Abs (test code = AEOS) 0.15 K/cumm 0.00-0.74 N Baso Abs (test code = ABASO) 0.0 K/cumm 0.00-0.21 N
[2019-12-05] MEDS ORDERED: NA CHLORIDE 0.9% 250 ML ONE (20:20)
[2019-12-05] MEDS ORDERED: AZITHROMYCIN 500 MG INJ IVPB ONE (20:20)
[2019-12-05] MEDS ORDERED: NA CHLORIDE 0.9% 1,000 ML ONE (20:20)
[2019-12-05 20:41] LABS: Urine Blood NEGATIVE (NEG); Urine Glucose NEGATIVE (NEG); Urine Protein TRACE (NEG); Urine pH 5.5 (5.0-7.0)
[2019-12-05 20:45] LABS: Absolute Lymphocytes (CBC) 1.3 K/uL (0.7-4.9); Basophils % 0.7 % (0-1.3); Hematocrit 27.9 % (39.6-49.0); Lymphocytes % 21.1 % (15.3-44.8); RBC Red Blood Cell Count 2.85 M/uL (4.33-5.43)
[2019-12-05 20:57] LABS: ALT/SGPT 52 U/L (12-78); AST/SGOT 112 U/L (15-37); Albumin 2.1 g/dL (3.4-5.0); Alkaline Phosphatase 549 U/L (45-117); BUN Blood Urea Nitrogen 21 mg/dL (7-18); Bicarbonate 23 mmol/L (21-32); Bilirubin Total 1.3 mg/dL (0.2-1.0); CKMB Creatine Kinase MB < 1.0 ng/mL (0.3-3.6); Creatine Phosphokinase 47 U/L (39-308); Glucose Level 88 mg/dL (74-106); Lipase 272 U/L (73-393); Magnesium 2.1 mg/dL (1.8-2.4); Potassium 4.7 mmol/L (3.5-5.1); Protein, Total 8.6 g/dL (6.4-8.2); Sodium Level 126 mmol/L (136-145); Troponin (Emerg Dept Use Only) < 0.02 ng/mL (0.0-0.045)
[2019-12-05 21:00] LABS: Protime INR 1.13
--- NOTE | 2019-12-05 22:51 | EDPHYS ---
Physician Documentation [facility] Name: Benigno Lucas Age: 83 yrs Sex: Male : 1935 Arrival Date: 12/05/2019 Time: 18:06 Bed 6 Private MD: ED Physician Donte Enciso HPI: 12/04 22:47 This 83 yrs old Black Male presents to ER via Wheelchair with complaints of COVID tw4 Positive. 22:47 The patient has shortness of breath at rest, with light activity. Onset: The tw4 symptoms/episode began/occurred today. Duration: The symptoms are continuous, and are unchanged since they started. The patient's shortness of breath has no apparent modifying factors. Associated signs and symptoms: Pertinent positives: weakness. Severity of symptoms: At their worst the symptoms were mild in the emergency department the symptoms are unchanged. The patient has not experienced similar symptoms in the past. Historical: - Allergies: 12/05 00:17 No Known Allergies; rr5 - Home Meds: 00:17 docusate sodium 100 mg Oral cap [Active]; allopurinol 300 mg Oral tab 1 tab once daily rr5 [Active]; tamsulosin 0.4 mg oral cp24 1 cap once daily [Active]; Bystolic 10 mg oral tab 1 tab once daily [Active]; Linzess 145 mcg oral cap 1 cap once daily [Active]; mirtazapine 30 mg Oral tab 1 tab once daily [Active]; ergocalciferol (vitamin D2) oral 1.25 mg oral once wkly [Active]; - PMHx: 12/04 18:12 Gout; bile duct obstruction; Hypertension; ll1 - PSHx: 18:12 pancreatic stent; ll1 - Immunization history:: Adult Immunizations up to date. - Social history:: Smoking status: Patient denies any tobacco usage or history of. Patient/guardian denies using alcohol, street drugs, tobacco products. ROS: 22:47 Constitutional: Negative for fever, chills, and weight loss, Eyes: Negative for injury, tw4 pain, redness, and discharge, Cardiovascular: Negative for chest pain, palpitations, and edema, Abdomen/GI: Negative for abdominal pain, nausea, vomiting, diarrhea, and constipation, MS/Extremity: Negative for injury and deformity, Skin: Negative for injury, rash, and discoloration. 22:47 Respiratory: Positive for shortness of breath, Negative for cough, dyspnea on exertion, hemoptysis, orthopnea. Exam: 22:47 Constitutional: This is a well developed, well nourished patient who is awake, alert, tw4 and in no acute distress. Head/Face: Normocephalic, atraumatic. Chest/axilla: Normal chest wall appearance and motion. Nontender with no deformity. No lesions are appreciated. Cardiovascular: Regular rate and rhythm with a normal S1 and S2. No gallops, murmurs, or rubs. Normal PMI, no JVD. No pulse deficits. 22:47 Abdomen/GI: Soft, non-tender, with normal bowel sounds. No distension or tympany. No guarding or rebound. No evidence of tenderness throughout. Back: No spinal tenderness. No costovertebral tenderness. Full range of motion. MS/ Extremity: Pulses equal, no cyanosis. Neurovascular intact. Full, normal range of motion. Neuro: Awake and alert, GCS 15, oriented to person, place, time, and situation. Cranial nerves II-XII grossly intact. Motor strength 5/5 in all extremities. Sensory grossly intact. Cerebellar exam normal. Normal gait. 22:47 Respiratory: the patient does not display signs of respiratory distress, Respirations: normal, Breath sounds: rhonchi. Vital Signs: 18:13 BP 93 / 60; Pulse 78; Resp 18; Temp 98.6; Pulse Ox 100% ; Pain 0/10; ll1 20:00 BP 131 / 62; Pulse 79; Resp 17; Pulse Ox 98% ; Weight 60 kg; rr5 20:41 BP 125 / 72; Pulse 73; Resp 16; Pulse Ox 100% ; rr5 21:56 BP 118 / 69; Pulse 70; Resp 17; Pulse Ox 100% on R/A; rr5 22:41 BP 136 / 74; Pulse 94; Resp 19; Temp 98.4; Pulse Ox 98% ; rr5 12/05 00:00 BP 120 / 66; Pulse 81; Resp 15; Pulse Ox 100% on 2 lpm NC; rr5 01:02 BP 128 / 75; Pulse 75; Resp 19; Temp 98.9; Pulse Ox 99% on 2 lpm NC; rr5 MDM: 12/04 19:11 Patient medically screened. tw4 12/05 03:39 Differential diagnosis: Anemia Bronchitis CHF exacerbation, Chronic Obstructive tw4 Pulmonary Disease pneumonia, pulmonary edema, Sepsis. Antibiotic administration: Zithromax is given. Data reviewed: vital signs, nurses notes. Data interpreted: hall monitor: rhythm is normal sinus rhythm, Pulse oximetry: Interpretation: acceptable. Test interpretation: by ED physician or midlevel provider: ECG, plain radiologic studies. Counseling: I had a detailed discussion with the patient and/or guardian regarding: the historical points, exam findings, and any diagnostic results supporting the discharge/admit diagnosis, lab results, radiology results. Physician consultation: Darnell Jeffroxana was contacted at 21:00, regarding admission, to the telemetry unit. patient's condition, and will see patient in ED. 12/04 19:20 Order name: Blood Culture Adult (2) 12/04 19:20 Order name: BMP 12/04 19:20 Order name: CBC with Diff 12/04 19:20 Order name: Ckmb; Complete Time: 22:39 12/04 22:40 Interpretation: Within normal limits: CKMB < 1.0. 12/04 19:20 Order name: CPK; Complete Time: 22:39 12/04 19:20 Order name: Hepatic Function; Complete Time: 22:39 12/04 22:39 Interpretation: Normal except: A/G 0.3; GLOB 6.5; ALB 2.1; TP 8.6; BILID 1.0; BILIT tw4 1.3; ALK 549; AST 112. 12/04 19:20 Order name: Lipase; Complete Time: 22:39 12/04 22:40 Interpretation: Within normal limits: LIP 272. 12/04 19:20 Order name: Magnesium; Complete Time: 22:39 12/04 22:40 Interpretation: Within normal limits: MG 2.1. 12/04 19:20 Order name: PT-INR; Complete Time: 22:39 12/04 22:39 Interpretation: Normal except: PT 13.3. 12/04 19:20 Order name: Ptt, Activated; Complete Time: 22:39 12/04 22:40 Interpretation: Within normal limits: PTT 31.0. 12/04 19:20 Order name: Troponin (emerg Dept Use Only); Complete Time: 22:39 [facility] 12/04 22:41 Interpretation: TROPED < 0.02. [facility] 12/04 19:21 Order name: Blood Culture [facility] 12/04 19:21 Order name: Basic Metabolic Panel; Complete Time: 22:39 [facility] 12/04 22:40 Interpretation: Normal except: NA 126; CL 96; BUN 21. [facility] 12/04 19:21 Order name: CBC with Automated Diff; Complete Time: 22:39 [facility] 12/04 22:40 Interpretation: Normal except: RBC 2.85; HGB 9.2; HCT 27.9; MCV 98.0; MCH 32.4. [facility] 12/04 19:20 Order name: Cardiac monitoring; Complete Time: 20:24 [facility] 12/04 19:20 Order name: EKG - Nurse/Tech; Complete Time: 20:24 [facility] 12/04 19:20 Order name: IV Saline Lock; Complete Time: 20:24 [facility] 12/04 19:20 Order name: Labs collected and sent; Complete Time: 20:24 [facility] 12/04 19:20 Order name: O2 Per Protocol; Complete Time: 20:24 [facility] 12/04 19:20 Order name: O2 Sat Monitoring; Complete Time: 20:25 [facility] 12/04 20:22 Order name: Urine Dipstick--Ancillary (enter results); Complete Time: 22:39 me 12/04 22:03 Order name: CXR XRAY [facility] 12/04 22:51 Order name: Oxygen; Complete Time: 23:47 [facility] 12/05 05:00 Order name: Urinalysis [facility] Administered Medications: 12/04 20:00 Drug: NS 0.9% 1000 ml Route: IV; Rate: 100 ml/hr; Site: right hand; rr5 12/05 01:00 Follow up: Response: No adverse reaction; IV Status: Infusion continued upon admission; rr5 IV Intake: 500ml 12/04 21:16 Drug: AZITHromycin 500 mg Route: IVPB; Infused Over: 1 hrs; Site: right hand; rr5 22:20 Follow up: Response: No adverse reaction; IV Status: Completed infusion; IV Intake: rr5 250ml Disposition: 12/05/19 22:50 Hospitalization ordered by Darnell Barrera for Inpatient Admission. Preliminary diagnosis are Hypo-osmolality and hyponatremia, Weakness, Covid viral illness. - Bed requested for Telemetry/MedSurg (Inpatient). - Status is Inpatient Admission. eb - Condition is Stable. - Problem is new. - Symptoms are unchanged. Signatures: Dispatcher [employer] Emelina Villa RN RN Donte Chan MD MD tw4 Agustina Jimenez Raymond, RN RN rr5 Beatrice Rivera RN RN ll1 Corrections: (The following items were deleted from the chart) 12/05 00:12/04 18:12 Allergies: No Known Allergies; ll1 rr5 12/05 00:12/04 19:30 Home Meds: allopurinol 300 mg Oral tab 1 tab once daily; rr5 rr5 12/05 00:12/04 19:30 Home Meds: ergocalciferol (vitamin D2) 400 unit Oral tab; rr5 rr5 12/05 00:12/04 19:30 Home Meds: Flomax 0.4 mg Oral cp24; rr5 rr5 12/05 00:12/04 19:30 Home Meds: hydrochlorothiazide 12.5 mg Oral cap 1 cap once daily; rr5 rr5 12/05 00:12/04 19:30 Home Meds: lisinopril 30 mg Oral tab 1 tab once daily; rr5 rr5 12/05 00:12/04 19:30 Home Meds: hydroxyzine HCl 25 mg Oral tab 1 tab 4 times per day; rr5 rr5 12/05 01:00 12/04 22:50 Hospitalization Ordered by Darnell Barrera for Inpatient Admission. cg Preliminary diagnosis is Hypo-osmolality and hyponatremia; Weakness; Covid viral illness. Bed requested for Telemetry/MedSurg (Inpatient). Status is Inpatient Admission. Condition is Stable. Problem is new. Symptoms are unchanged. tw4 12/05 06:09 01:12/05/2019 22:50 Hospitalization Ordered by Darnell Barrera for Inpatient cg Admission. Preliminary diagnosis is Hypo-osmolality and hyponatremia; Weakness; Covid viral illness. Bed requested for [facility] ER HOLD. Status is Inpatient Admission. Condition is Stable. Problem is new. Symptoms are unchanged. 08:12 06:09 12/05/2019 22:50 Hospitalization Ordered by Darnell Barrera for Inpatient eb Admission. Preliminary diagnosis is Hypo-osmolality and hyponatremia; Weakness; Covid viral illness. Bed requested for Telemetry/MedSurg (Inpatient). Status is Inpatient Admission. Condition is Stable. Problem is new. Symptoms are unchanged. cg
--- NOTE | 2019-12-05 22:51 | ER ---
Nurse's Notes [facility] Name: Benigno Lucas Age: 83 yrs Sex: Male : 1935 Arrival Date: 12/05/2019 Time: 18:06 Bed 6 Private MD: Diagnosis: Hypo-osmolality and hyponatremia;Weakness;Covid viral illness Presentation: 12/04 18:13 Chief complaint: Patient states: Covid positive result called in today. Swab on ll1 Monday. + cough, low grade fever. + weakness and malaise. No appetite. History of anemia, feels weak. Coronavirus screen: Surgical mask placed on patient. Patient moved to private room, placed in contact and droplet isolation with eye protection until further assessment. Patient reports a cough. Patient denies shortness of breath or difficulty breathing. Patient denies measured and/or subjective temperature greater than 100.4F prior to today's visit. Patient denies travel on a cruise ship or to a country the [facility] currently lists as an affected area. Patient denies contact with known and/or suspected case of COVID-19. Ebola Screen: Patient denies travel to an Ebola-affected area in the 21 days before illness onset. Initial Sepsis Screen: Does the patient meet any 2 criteria? No. Patient's initial sepsis screen is negative. Risk Assessment: Do you want to hurt yourself or someone else? Patient reports no desire to harm self or others. Onset of symptoms was November 25, 2019. 18:13 Method Of Arrival: Wheelchair ll1 18:13 Acuity: DALILA 2 ll1 19:30 Initial Sepsis Screen: Does the patient have a suspected source of infection? No. rr5 Patient's initial sepsis screen is negative. Historical: - Allergies: 12/05 00:17 No Known Allergies; rr5 - Home Meds: 00:17 docusate sodium 100 mg Oral cap [Active]; allopurinol 300 mg Oral tab 1 tab once daily rr5 [Active]; tamsulosin 0.4 mg oral cp24 1 cap once daily [Active]; Bystolic 10 mg oral tab 1 tab once daily [Active]; Linzess 145 mcg oral cap 1 cap once daily [Active]; mirtazapine 30 mg Oral tab 1 tab once daily [Active]; ergocalciferol (vitamin D2) oral 1.25 mg oral once wkly [Active]; - PMHx: 12/04 18:12 Gout; bile duct obstruction; Hypertension; ll1 - PSHx: 18:12 pancreatic stent; ll1 - Immunization history:: Adult Immunizations up to date. - Social history:: Smoking status: Patient denies any tobacco usage or history of. Patient/guardian denies using alcohol, street drugs, tobacco products. Screenin:41 Abuse screen: Denies threats or abuse. Denies injuries from another. Nutritional rr5 screening: No deficits noted. Tuberculosis screening: No symptoms or risk factors identified. Fall Risk IV access (20 points). Total Lisa Fall Scale indicates No Risk (0-24 pts). Assessment: 19:30 General: Appears in no apparent distress. uncomfortable, ill, Behavior is calm, rr5 cooperative, appropriate for age, Reports chills for fever for feeling ill for fatigue for. Pain: Denies pain. Neuro: Level of Consciousness is awake, alert, obeys commands, Oriented to person, place, time, situation, Reports malaise. Cardiovascular: Capillary refill < 3 seconds Patient's skin is warm and dry. Respiratory: Airway is patent Respiratory effort is even, unlabored, Respiratory pattern is regular, symmetrical, Parent/caregiver reports the patient having shortness of breath cough that is. GI: No signs and/or symptoms were reported involving the gastrointestinal system. : No signs and/or symptoms were reported regarding the genitourinary system. EENT: No signs and/or symptoms were reported regarding the EENT system. Derm: Skin is fragile, is thin, Skin temperature is warm. Musculoskeletal: Circulation, motion, and sensation intact. Capillary refill < 3 seconds. 20:20 Reassessment: Patient appears in no apparent distress at this time. Patient is alert, rr5 oriented x 3, equal unlabored respirations, skin warm/dry/pink. call laboratory to get second blood culture. 21:05 Reassessment: Patient appears in no apparent distress at this time. Patient is alert, rr5 oriented x 3, equal unlabored respirations, skin warm/dry/pink. awaiting for results. 22:30 Reassessment: Patient appears in no apparent distress at this time. Patient is alert, rr5 oriented x 3, equal unlabored respirations, skin warm/dry/pink. for admission awaiting for hospitalist assessment. 23:40 Reassessment: Patient appears in no apparent distress at this time. hospitalist at 5 bedside examining the patient. 12/05 00:42 Reassessment: [facility] [phone] ([facility]) [id number] (home) [id number] dr. zi rodriguez [address] 01:00 Reassessment: Patient appears in no apparent distress at this time. Patient is alert, rr5 oriented x 3, equal unlabored respirations, skin warm/dry/pink. admitted under ER hold. no complaints made. 07:00 Reassessment: RECD REPORT FROM DANIEL BUSTOS. PT IS ER HOLD, SEE [facility] FOR FURTHER bp DOCUMENTATION. Vital Signs: 12/04 18:13 BP 93 / 60; Pulse 78; Resp 18; Temp 98.6; Pulse Ox 100% ; Pain 0/10; ll1 20:00 BP 131 / 62; Pulse 79; Resp 17; Pulse Ox 98% ; Weight 60 kg; rr5 20:41 BP 125 / 72; Pulse 73; Resp 16; Pulse Ox 100% ; rr5 21:56 BP 118 / 69; Pulse 70; Resp 17; Pulse Ox 100% on R/A; rr5 22:41 BP 136 / 74; Pulse 94; Resp 19; Temp 98.4; Pulse Ox 98% ; rr5 12/05 00:00 BP 120 / 66; Pulse 81; Resp 15; Pulse Ox 100% on 2 lpm NC; rr5 01:02 BP 128 / 75; Pulse 75; Resp 19; Temp 98.9; Pulse Ox 99% on 2 lpm NC; rr5 ED Course: 12/04 18:06 Patient arrived in ED. mr 18:15 Triage completed. ll1 18:15 Arm band placed on Patient placed in an exam room, on a stretcher. ll1 18:25 Eriberto Mcgarry, RN is Primary Nurse. em 19:10 Patient has correct armband on for positive identification. Placed in gown. Bed in low rr5 position. Call light in reach. Side rails up X2. grain sampler on. Pulse ox on. NIBP on. 19:10 Warm blanket given. rr5 19:11 Donte Enciso MD is Attending Physician. tw4 19:45 Missed attempt(s): 20 gauge in right forearm. Bleeding controlled, band aid applied, rr5 catheter tip intact. 19:50 EKG done, by ED staff, reviewed by Donte Enciso MD. rr5 20:00 Inserted saline lock: 20 gauge in right hand, using aseptic technique. Blood collected. rr5 21:10 Inserted saline lock: 20 gauge in left antecubital area, using aseptic technique. rv 21:10 Second set of blood cultures drawn by me. rv 22:38 CXR XRAY In Process Unspecified. EDTN 22:49 Darnell Barrera is Hospitalizing Provider. tw4 12/05 01:01 No provider procedures requiring assistance completed. Patient admitted, IV remains in rr5 place. intact, No redness/swelling at site. 07:54 Primary Nurse role handed off by Eriberto Mcgarry RN eb Administered Medications: 12/04 20:00 Drug: NS 0.9% 1000 ml Route: IV; Rate: 100 ml/hr; Site: right hand; rr5 12/05 01:00 Follow up: Response: No adverse reaction; IV Status: Infusion continued upon admission; rr5 IV Intake: 500ml 12/04 21:16 Drug: AZITHromycin 500 mg Route: IVPB; Infused Over: 1 hrs; Site: right hand; rr5 22:20 Follow up: Response: No adverse reaction; IV Status: Completed infusion; IV Intake: rr5 250ml Intake: 22:20 IV: 250ml; Total: 250ml. rr5 12/05 01:00 IV: 500ml; Total: 750ml. rr5 Output: 12/04 22:41 Urine: 350ml (Voided); Total: 350ml. rr5 Outcome: 22:50 Decision to Hospitalize by Provider. tw4 12/05 01:01 Admitted to ER Hold. Please see [facility] for further documentation. rr5 Condition: stable Instructed on the need for admit. 07:50 Admitted to Med/surg accompanied by tech, via wheelchair, room 417, with oxygen, Report bp called to GABRIEL BUSTOS 08:12 Patient left the ED. eb Signatures: Dispatcher [employer] [facility] Karen Mcbride Eriberto Mcgarry, RN Timbo Ramachandran RN RN bp Wadley, Terrence, MD MD tw4 Agustina Jimenez eb Clinton Villalobos RN RN rv Roque, Raymond, RN RN rr5 Beatrice Rivera RN RN ll1 Corrections: (The following items were deleted from the chart) 00:12/04 18:12 Allergies: No Known Allergies; ll1 rr5 12/05 00:12/04 19:30 Home Meds: allopurinol 300 mg Oral tab 1 tab once daily; rr5 rr5 12/05 00:12/04 19:30 Home Meds: ergocalciferol (vitamin D2) 400 unit Oral tab; rr5 rr5 12/05 00:12/04 19:30 Home Meds: Flomax 0.4 mg Oral cp24; rr5 rr5 12/05 00:12/04 19:30 Home Meds: hydrochlorothiazide 12.5 mg Oral cap 1 cap once daily; rr5 rr5 12/05 00:12/04 19:30 Home Meds: lisinopril 30 mg Oral tab 1 tab once daily; rr5 rr5 12/05 00:12/04 19:30 Home Meds: hydroxyzine HCl 25 mg Oral tab 1 tab 4 times per day; rr5 rr5 12/05 01:04 00:00 BP 120 / 66; Pulse 81bpm; Resp 15bpm; Pulse Ox 100%; rr5 rr5 01:04 01:02 BP 128 / 75; Pulse 75bpm; Resp 19bpm; Pulse Ox 99%; Temp 98.9F; rr5 rr5
--- NOTE | 2019-12-06 00:43 | P.HP ---
Certification for Inpatient Patient admitted to: Inpatient With expected LOS: >2 Midnights Practitioner: I am a practitioner with admitting privileges, knowledge of patient current condition, hospital course, and medical plan of care. Services: Services provided to patient in accordance with Admission requirements found in Title 42 Section 412.3 of the Code of Federal Regulations Patient History Date of Service: 12/06/19 Reason for admission: COVID positive. History of Present Illness: 83-year-old debilitated gentleman with a history of adenocarcinoma of the pancreas, obstructive jaundice status post recent biliary stent, progressive decline in functional status was brought to the emergency department because patient tested positive for COVIF 19. Son was present by his bedside formation patient had a low-grade fever yesterday. Son also reports patient has been progressively weaker over the last couple of days. He has poor appetite which is not new. His lab work is mostly at baseline. Chest x-ray is clear and shows no infiltrate. Patient is hospitalized for further management. Allergies No Known Allergies Allergy (Verified 03/07/19 00:49) Home Medications: Allopurinol 300 mg PO DAILY 03/07/19 Ergocalciferol (Vitamin D2) [Vitamin D2] 1.25 mg PO EVERY 7TH DAY 03/07/19 Tamsulosin [Flomax*] 1 cap PO DAILY 03/07/19 hydrOXYzine HCL [Atarax] 25 mg PO Q6HR 03/07/19 hydroCHLOROthiazide [Hydrochlorothiazide*] 12.5 mg PO DAILY 03/07/19 lisinopriL [Lisinopril] 1 tab PO DAILY 03/07/19 - Past Medical/Surgical History -: pancreatic cancer -: TESS -: hypertension -: Biliary stent - Family History Family History: Reviewed- Non-Contributory - Social History Alcohol use: No CD- Drugs: No Caffeine use: Yes Review of Systems Other: Except as documented, all other systems reviewed and negative. Physical Examination - Physical Exam General: In no apparent distress, Oriented x2 HEENT: Atraumatic, Mucous membr. moist/pink Neck: Supple, JVD not distended Respiratory: Clear to auscultation bilaterally, Normal air movement Cardiovascular: No edema, Regular rate/rhythm, Normal S1 S2 Capillary refill: <2 Seconds Gastrointestinal: Normal bowel sounds, Soft and benign, No tenderness Musculoskeletal: No swelling Integumentary: No rashes Neurological: Normal speech, Other (Globally weak) - Studies Laboratory Data (last 24 hrs) 12/05/19 20:00: PT 13.3 H, INR 1.13, APTT 31.0 12/05/19 20:00: WBC 5.9, Hgb 9.2 L, Hct 27.9 L, Plt Count 265 12/05/19 20:00: Sodium 126 L, Potassium 4.7, BUN 21 H, Creatinine 0.93, Glucose 88, Magnesium 2.1, Total Bilirubin 1.3 H, AST 112 H, ALT 52, Alkaline Phosphatase 549 H, Lipase 272 Assessment and Plan - Problems (Diagnosis) (1) COVID-19 in immunocompromised patient Current Visit: Yes Status: Acute (2) Cachexia Current Visit: No Status: Acute (3) Generalized weakness Current Visit: No Status: Acute (4) Obstructive jaundice Current Visit: No Status: Acute (5) Pancreatic adenocarcinoma Current Visit: No Status: Acute (6) Hyponatremia Current Visit: Yes Status: Acute - Plan Place under observation. Supportive measures. Oxygen as needed IV hydration given poor oral intake. IV normal saline to treat hyponatremia Patient noncompliance to decide on DNI and DNR status. No indication for antibiotics at this time. Nutritional consult Nutritional supplementation PT - Advance Directives Does patient have a Living Will: No Does patient have a Durable POA for Healthcare: No
[2019-12-06] MEDS ORDERED: ONDANSETRON 4 MG/2 ML VIAL IV PRN (01:42)
[2019-12-06] MEDS: D5 0.9 NS 1,000 ML IV SCH ×3 (01:42→19:27)
[2019-12-06] MEDS: HEPARIN 5000 UNIT/ML 1 ML VIAL SQ SCH ×3 (02:00→16:00)
[2019-12-06 03:41] VITALS: BMI 17.4
[2019-12-06 04:58] LABS: Urine Appearance CLEAR; Urine Bilirubin NEGATIVE (NEG); Urine Blood NEGATIVE (NEG); Urine Color YELLOW; Urine Glucose NEGATIVE (NEG); Urine Protein NEGATIVE (NEG); Urine Specific Gravity <=1.005 (1.005-1.030)
[2019-12-06 05:00] LABS: Urine Microscopic Reflex NO UMIC
--- NOTE | 2019-12-06 07:12 | RAD REPORT ---
EXAM DESCRIPTION: RAD - Chest Single View - 12/05/2019 10:37 pm CLINICAL HISTORY: positive covid;Congestion COMPARISON: AP chest February 2019 TECHNIQUE: AP portable chest image was obtained 12/05/2019 10:37 pm . FINDINGS: Lung volumes are low compared to prior study. No peripheral mass consolidation. No signifi cant failure or volume overload. Heart and vasculature are normal. No measurable pleural effusion and no pneumothorax. No acute bony abnormality seen. No acute aortic findings suspected. IMPRESSION: No acute cardiopulmonary process. No significant change from comparison.
[2019-12-06 13:16] LABS: BUN Blood Urea Nitrogen 16 mg/dL (7-18); Bicarbonate 23 mmol/L (21-32); Glucose Level 119 mg/dL (74-106); Potassium 4.4 mmol/L (3.5-5.1); Sodium Level 133 mmol/L (136-145)
[2019-12-06] MEDS: SODIUM CHLORIDE 1 GM TAB PO SCH ×2 (13:34→16:00)
[2019-12-06] MEDS ORDERED: NA CHLORIDE 0.9% IVPB SCH (18:00)
[2019-12-06] MEDS ORDERED: VANCOMYCIN IVPB SCH (18:00)
--- NOTE | 2019-12-06 18:15 | EKG ---
Test Date: 2019-12-05 Test Time: 19:43:50 Learning Officer: RR MEASUREMENT RESULTS: Intervals: Rate: 78 CO: 134 QRSD: 88 QT: 376 QTc: 428 [place]: P: 76 CO: 134 QRS: -38 T: 49 INTERPRETIVE STATEMENTS: Sinus rhythm with frequent premature ventricular complexes Left axis deviation Nonspecific ST abnormality Abnormal ECG Compared to ECG 03/06/2019 20:54:05 Left-axis deviation now present ST (T wave) deviation now present Sinus tachycardia no longer present Electronically Signed On 12-06-19 18:12:47 CDT by Jaison Bateman
[2019-12-06] MEDS: ENSURE ENLIVE 237 ML CAN PO SCH (19:28)
[2019-12-06] MEDS ORDERED: MIRTAZAPINE 15 MG TAB PO SCH (21:00)
[2019-12-06] MEDS ORDERED: VANCOMYCIN/NS 1 gm 1 GM/250 ML BAG IVPB SCH (21:00)
[2019-12-07] MEDS: HEPARIN 5000 UNIT/ML 1 ML VIAL SQ SCH ×2 (00:01→07:52)
[2019-12-07] MEDS ORDERED: ACETAMINOPHEN 500 MG TAB PO PRN (04:28)
[2019-12-07] MEDS: D5 0.9 NS 1,000 ML IV SCH (05:33)
[2019-12-07 06:48] LABS: Absolute Lymphocytes (CBC) 1.3 K/uL (0.7-4.9); Basophils % 0.5 % (0-1.3); Hematocrit 25.7 % (39.6-49.0); MPV 8.6 fL (7.6-11.3); RBC Red Blood Cell Count 2.64 M/uL (4.33-5.43)
[2019-12-07 06:58] LABS: ALT/SGPT 47 U/L (12-78); AST/SGOT 99 U/L (15-37); Albumin 1.6 g/dL (3.4-5.0); Alkaline Phosphatase 528 U/L (45-117); BUN Blood Urea Nitrogen 11 mg/dL (7-18); Bicarbonate 22 mmol/L (21-32); Glucose Level 110 mg/dL (74-106); Magnesium 1.9 mg/dL (1.8-2.4); Potassium 4.1 mmol/L (3.5-5.1); Sodium Level 136 mmol/L (136-145)
[2019-12-07] MEDS: SODIUM CHLORIDE 1 GM TAB PO SCH (07:51)
[2019-12-07] MEDS: ENSURE ENLIVE 237 ML CAN PO SCH (07:53)
[2019-12-07] MEDS ORDERED: POTASS/SODIUM PHOSPHATE 1 PKT POWD.PACK PO SCH (08:00)
[2019-12-07] MEDS: POTASS/SODIUM PHOSPHATE 1 PKT POWD.PACK PO SCH ×3 (08:04→09:59)
[2019-12-07] MEDS ORDERED: TAMSULOSIN 0.4 MG SR CAP PO SCH (09:00)
[2019-12-07] MEDS ORDERED: HOME MED 1 EA UNK (Linaclotide [Linzess] 145 MCG) PO SCH (09:00)
[2019-12-07] MEDS ORDERED: HOME MED 1 EA UNK (Nebivolol Hcl [Bystolic] 10 MG) PO SCH (09:00)
[2019-12-07] MEDS ORDERED: DOCUSATE NA 100 MG CAP PO SCH (09:00)
[2019-12-07] MEDS ORDERED: allopurinoL 300 MG TAB PO SCH (09:00)
--- NOTE | 2019-12-07 11:18 | P.DS ---
Admission Date: 12/06/19 Discharge Date: 12/07/19 Disposition: ROUTINE DISCHARGE Discharge Condition: GOOD Reason for Admission: COVID positive. - Problems (1) Severe malnutrition Current Visit: Yes Status: Acute (2) COVID-19 in immunocompromised patient Current Visit: Yes Status: Acute (3) Hyponatremia Current Visit: Yes Status: Acute (4) Acute kidney injury Current Visit: No Status: Acute (5) Cachexia Current Visit: No Status: Acute (6) Generalized weakness Current Visit: No Status: Acute (7) Obstructive jaundice Current Visit: No Status: Acute (8) Pancreatic adenocarcinoma Current Visit: No Status: Acute Brief History of Present Illness: Please refer to H&P Hospital Course: Patient is 83 year male with unknown past medical history of advanced pancreatic cancer complicated by obstructive jaundice status post bili stephanie stent, and CV a malnutrition. He presented to the hospital after recent diagnosis of COVID 19. He presenting sx were fever and generalized weakness. Patient was found to be hyponatremic with a sodium of 126 during this admission. Throughout this admission, he hasn't required supplemental oxygen and was never in respiratory distress. His sodium normalized with short course of salt tablets. His blood culture positive for coag negative staph which was deemed to be a contaminant, / bottles. Vital Signs/Physical Exam: Temp Pulse Resp BP Pulse Ox 98.6 F 75 18 127/64 100 12/07/19 08:00 12/07/19 08:00 12/07/19 08:00 12/07/19 08:00 12/07/19 08:00 General: In no apparent distress, Cachectic, Other (elderly and frail) HEENT: Atraumatic, Normocephalic, Other (temporal muscle wasting), EOMI Neck: Supple Respiratory: Other (decreased breath sounds, R lung lea) Cardiovascular: No edema, Normal pulses, Regular rate/rhythm, Normal S1 S2 Gastrointestinal: Soft and benign, Non-distended, Other (scaphoid abdomen) Neurological: Dementia Laboratory Data at Discharge: WBC 7.2 K/uL (4.3-10.9) D 12/07/19 06:13 Hgb 8.6 g/dL (13.6-17.9) L 12/07/19 06:13 Hct 25.7 % (39.6-49.0) L 12/07/19 06:13 Plt Count 260 K/uL (152-406) 12/07/19 06:13 PT 13.3 SECONDS (9.5-12.5) H 12/05/19 20:00 INR 1.13 12/05/19 20:00 APTT 31.0 SECONDS (24.3-36.9) 12/05/19 20:00 Sodium 136 mmol/L (136-145) 12/07/19 06:13 Potassium 4.1 mmol/L (3.5-5.1) 12/07/19 06:13 BUN 11 mg/dL (7-18) 12/07/19 06:13 Creatinine 0.70 mg/dL (0.55-1.3) 12/07/19 06:13 Glucose 110 mg/dL (74-106) H 12/07/19 06:13 Phosphorus 2.0 mg/dL (2.5-4.9) L 12/07/19 06:13 Magnesium 1.9 mg/dL (1.8-2.4) 12/07/19 06:13 Total Bilirubin 1.0 mg/dL (0.2-1.0) 12/07/19 06:13 AST 99 U/L (15-37) H 12/07/19 06:13 ALT 47 U/L (12-78) 12/07/19 06:13 Alkaline Phosphatase 528 U/L (45-117) H 12/07/19 06:13 Lipase 272 U/L (73-393) 12/05/19 20:00 Home Medications: Allopurinol 300 mg PO DAILY 03/07/19 Tamsulosin [Flomax*] 1 cap PO DAILY 03/07/19 Docusate Sodium 100 mg PO DAILY 12/06/19 Ergocalciferol (Vitamin D2) [Vitamin D2] 1,250 mcg PO Q7D 12/06/19 Linaclotide [Linzess] 145 mcg PO DAILY 12/06/19 Mirtazapine 30 mg PO DAILY 12/06/19 Nebivolol HCl [Bystolic] 10 mg PO DAILY 12/06/19 Ensure Enlive 237 ml PO BID can 12/07/19 Diet: Regular
[2019-12-07 12:13] VITALS: BP 107/65; TEMP 97.4
[2019-12-07 12:43] VITALS: O2SAT 98
== END 2019-12-07 13:38 | disposition home or self-care (01) ==
LOC: ER 18:01 → ERHOLD 12-06 01:04 → INTOOBSV 12-06 01:04 → 4TH 12-06 07:50
PROVIDERS: ADMIT Internal Medicine; ATTEND Internal Medicine
DX: U07.1 COVID-19 (principal); C25.9 Malignant neoplasm of pancreas, unspecified; E87.1 Hypo-osmolality and hyponatremia; E43 Unspecified severe protein-calorie malnutrition; R94.31 Abnormal electrocardiogram [ECG] [EKG]; I49.3 Ventricular premature depolarization; I10 Essential (primary) hypertension; M10.9 Gout, unspecified; Z79.899 Other long term (current) drug therapy
CPT/HCPCS: 96365; 96361; 93005; 87040 ×2; 85025 ×2; 80048 ×2; 36415 ×2; 83735 ×2; 82550; 87205; 84100; 85610; 84300; 80076; 85730; 81003 ×2; 84484; 82553; 83690; 80053; 83930; 83935; 71045; 94760 ×3; 99285; J1644 ×5; J0456; J3370; J7042 ×4; J7030 ×2; G0378 ×3